=== PATIENT | female | born 1955 | race Caucasian/White ===

== ENCOUNTER 2020-06-24 18:29 | Observation (INO) | payer BC, OTHER ==
[2020-06-24] MEDS ORDERED: Morphine 4 MG/ML VIAL ONE (19:20)
[2020-06-24] MEDS ORDERED: Ondansetron PF 4 MG/2 ML Vial ONE (19:27)
[2020-06-24 20:00] LABS: #Basophils 0.1 thou/uL (0.0-0.2); #Eosinphils 0.1 thou/uL (0.0-0.7); #Lymphocytes 1.7 thou/uL (1.20-3.40); #Monocytes 0.4 thou/uL (0.11-0.59); #Neutrophils 3.6 thou/uL (1.40-6.50); %Basophils 1.2 % (0.0-1.0); %Eosinophils 1.8 % (0.0-10.0); %Lymphocytes 28.3 % (21.0-51.0); %Monocytes 7.1 % (0.0-10.0); %Neutrophils 61.6 % (42.0-75.0); Hemoglobin 11.9 g/dL (12.0-16.0); Mean Corpuscular HGB CONC 34.8 g/dL (32.0-36.0); Mean Corpuscular Hemoglobin 33.2 pg (27.0-31.0); Mean Corpuscular Volume 95.5 fL (78.0-98.0); Platelet Count 192 thou/uL (130-400); RBC Distribution Width 12.2 % (11.5-14.5); Red Blood Cell (RBC) Count 3.58 mill/uL (4.20-5.40); White Blood Cell (WBC) Count 5.9 thou/uL (4.8-10.8)
--- NOTE | 2020-06-24 20:00 | ULT ---
EXAM: Bilateral lower extremity venous ultrasound HISTORY: Bilateral lower extremity swelling COMPARISON: None TECHNIQUE: Multiplanar grayscale and color Doppler images were obtained in a bilateral lower extremit y venous ultrasound. Spectral analysis of the Doppler waveforms were performed. FINDINGS: The bilateral common femoral vein, profunda femoral veins, superficial femoral veins, and p opliteal veins are normal in appearance without visible thrombus. These vessels demonstrate normal compression, flow, and augmentation. The bilateral posterior tibial veins, profunda femoral veins and greater saphenous veins are patent w ithout evidence of DVT. IMPRESSION: No evidence of DVT in the left or right lower extremity.
--- NOTE | 2020-06-24 20:16 | RAD ---
Exam:THREE VIEWS RIGHT FOOT: HISTORY: Wound along the calcaneus. Evaluate for osteomyelitis. COMPARISON: None FINDINGS: There appear to be chronic degenerative changes involving the articulation of the second an d third proximal metatarsals and adjacent cuneiform bones. There is associated soft tissue swelling. Lisfranc alignment is difficult to assess. No acute fractures. No erosive or destructive changes. No bone demineralization. IMPRESSION: 1. Chronic changes involving the midfoot as described above. 2. No radiographic evidence of osteomyelitis. Transcribed Date/Time: 06/24/2020 8:53 PM
[2020-06-24 20:23] LABS: ALT (SGPT) 16 U/L (8-55); AST (SGOT) 20 U/L (5-34); Albumin 4.5 g/dL (3.4-4.8); Alkaline Phosphatase 55 U/L (40-110); Anion Gap 17 mmol/L (10-20); BUN (Urea Nitrogen) 24 mg/dL (9.8-20.1); Bilirubin, Total 0.4 mg/dL (0.2-1.2); Calc. Creatinine Clearance 0 mL/min (70-130); Calcium 9.3 mg/dL (7.8-10.44); Carbon Dioxide 22 mmol/L (23-31); Chloride 97 mmol/L (98-107); Estimated GFR-MDRD 38; Globulin 2.6 g/dL (2.4-3.5); Glucose 105 mg/dL (80-115); Potassium 4.1 mmol/L (3.5-5.1); Protein, Total 7.1 g/dL (6.0-8.3); Sodium 132 mmol/L (136-145)
[2020-06-24] MEDS ORDERED: Clindamycin/D5W 900 mg/50 ml Premix Bag ONE (21:58)
[2020-06-24] MEDS ORDERED: Bacitracin 1 PK ONE (22:18)
--- NOTE | 2020-06-24 23:13 | PDOC.FPRHP ---
- History of Present Illness Chief Complaint: Dog bite History of Present Illness: Patient is a 64 year old female with a history of HTN, PVD, HLD, MDD, anemia and neuropathy presents to the ED with complaints of right lower extremity edema and erythema secondary to dog bite 1 month ago. The patient says she was bitten by a puppy 2 month ago on the right heel and right arreguin. She says the puppy is up to date on vaccines and displays no symptoms concerning for rabies. Initially wounds healed appropriately, but patient developed right lower extremity edema, erythema and tenderness to touch around the bite santiago 2-3 weeks ago. She was seen in [facility] on 06/20 and placed on Keflex and Doxy. The patient says her symptoms have worsened since that time. She has been taking medication as prescribed. She denies fever, chills, lightheadedness, headache, vision changes, chest pain, SOB, palpitations, and abdominal pain. Most recent lab work completed outpatient was in 09/12. ED Course: In the ED, patient was afebrile. Received 900mg IV clindamycin, Morphine 4mg and Zofran 4mg. - Allergies/Adverse Reactions Allergies Allergy/AdvReac Type Severity Reaction Status Date / Time acetaminophen [From Tylenol] Allergy Verified 01/14/20 03:48 Penicillins Allergy Verified 06/25/20 01:10 - Home Medications Medication Instructions Recorded Confirmed Type Amlodipine [Norvasc] 10 mg PO DAILY 06/25/20 06/25/20 History Aspirin Chewable 81 mg PO DAILY 06/25/20 06/25/20 History Candesartan Cilexetil 8 mg PO DAILY 06/25/20 06/25/20 History Cephalexin [Keflex] 500 mg PO Q12H 06/25/20 06/25/20 History Cilostazol [Pletal] 100 mg PO BID-AC 06/25/20 06/25/20 History Cyclobenzaprine [Flexeril] 10 mg PO TID PRN 06/25/20 06/25/20 History Doxycycline Hyclate 100 mg PO BID 06/25/20 06/25/20 History Ezetimibe [Zetia] 10 mg PO DAILY 06/25/20 06/25/20 History FLUoxetine HCl 20 mg PO DAILY 06/25/20 06/25/20 History Gabapentin [Neurontin] 600 mg PO TID 06/25/20 06/25/20 History Hydrochlorothiazide 12.5 mg PO QAM 06/25/20 06/25/20 History buPROPion HCl [buPROPion HCl SR] 150 mg PO BID 06/25/20 06/25/20 History - History PMHx: HTN, HLD, PVD, MDD, neuropathy, anemia, questionable history of DM PSHx: Partial hysterectomy, TMJ surgery, FHx: Noncontributory Social: Quit smoking cigarettes 3 months ago, previously 1ppd for about 45 years. Occasional alcohol use. No drug use. - Review of Systems General: denies: fever/chills, night sweats Eyes: denies: eye pain, vision changes ENT: denies: nasal congestion, rhinorrhea Respiratory: denies: congestion, shortness of breath Cardiovascular: reports: edema. denies: chest pain, palpitation Gastrointestinal: denies: nausea, vomiting, abdominal pain Genitourinary: denies: dysuria, polyuria Skin: denies: rashes, jaundice Musculoskeletal: reports: pain, tenderness, swelling. denies: stiffness Neurological: denies: numbness, weakness Psychological: denies: anxiety, depression - Vital signs BP: [154/74] HR: [98] RR: [20] Tmax: [98.3] Pox: [98]% on [RA] Wt: [92.3kg] - Physical Exam Constitutional: NAD, awake, alert and oriented -Constitutional: Comfortable, talkative. HEENT: normocephalic and atraumatic Neck: supple, trachea midline Chest: no-tender to palpation, no lesions Heart: RRR, normal S1/S2 -Heart: Systolic murmur. 2+ pitting edema bilaterally. Lungs: CTAB, no respiratory distress Abdomen: soft, non-tender, bowel sounds present Musculoskeletal: normal structure, ROM grossly normal Neurological: no focal deficit, normal sensation Skin: capillary refill <2 seconds -Skin: Right heel: erythema and small area of skin sloughing, nontender, no drainage present Right anterior arreguin: mild erythema, minimal area of skin sloughing, nontender, no drainage present Venous stasis dermatitis bilaterally Heme/Lymphatic: no purpura, no petechia Psychiatric: normal mood and affect FMR H&P: Results - Labs Result Diagrams: 06/25/20 03:32 06/25/20 03:32 Lab results: WBC 5.9 thou/uL (4.8-10.8) 06/24/20 19:40 Hgb 11.9 g/dL (12.0-16.0) L 06/24/20 19:40 Hct 34.2 % (36.0-47.0) L 06/24/20 19:40 MCV 95.5 fL (78.0-98.0) 06/24/20 19:40 Plt Count 192 thou/uL (130-400) 06/24/20 19:40 Neutrophils % 61.6 % (42.0-75.0) 06/24/20 19:40 ESR Westergren 17 mm/hr (Less than 30) 06/24/20 21:38 Sodium 132 mmol/L (136-145) L 06/24/20 19:40 Potassium 4.1 mmol/L (3.5-5.1) 06/24/20 19:40 Chloride 97 mmol/L (98-107) L 06/24/20 19:40 Carbon Dioxide 22 mmol/L (23-31) L 06/24/20 19:40 BUN 24 mg/dL (9.8-20.1) H 06/24/20 19:40 Creatinine 1.40 mg/dL (0.6-1.1) H 06/24/20 19:40 Glucose 105 mg/dL (80-115) 06/24/20 19:40 Calcium 9.3 mg/dL (7.8-10.44) 06/24/20 19:40 Total Bilirubin 0.4 mg/dL (0.2-1.2) 06/24/20 19:40 AST 20 U/L (5-34) 06/24/20 19:40 ALT 16 U/L (8-55) 06/24/20 19:40 Alkaline Phosphatase 55 U/L (40-110) 06/24/20 19:40 C-Reactive Protein 0.50 mg/dL (= or < 0.5) 06/24/20 19:40 B-Natriuretic Peptide 17.3 pg/mL (0-100) 06/24/20 19:40 Serum Total Protein 7.1 g/dL (6.0-8.3) 06/24/20 19:40 Albumin 4.5 g/dL (3.4-4.8) 06/24/20 19:40 - Radiology Interpretation US - venous Status: report reviewed by me Additional comment: No DVT present bilaterally Other Status: report reviewed by me Additional comment: XR Right Foot showed no osteomyelitis FMR H&P: A/P - Plan 64 yo F with HTN, anemia, PVD and MDD presents for worsening pain and swelling of LE and admitted for right lower extremity cellulitis that failed outpatient therapy. RLE cellulitis 2/2 dog bite Afebrile. WBC5.9. No systemic symptoms concerning for endocarditis. Erythema surrounding right heel and right anterior arreguin bite sites but no drainage or warmth to touch present. Pain appears to be related to chronic lower extremity edema rather than cellulitis. Received IV clinda in ED. -Continue clinda 600mg Q8H IV, transition to oral with clinical improvement -Start Rocephin 2g Q24H -F/u wound culture -Consult wound care -A1C - questionable history of DM could attribute to poor wound healing Lower extremity edema likely 2/2 to Hx PVD Skin changes consistent with chronic venous stasis. No DVT present. BNP 17, making heart failure less likely. Patient is on amlodipine but is a chronic medication without recent dose changes. -Order UA for possible proteinuria -Compression hose AIDA vs progressing CKD Cr 1.4 in ED with BUN 24. Last BMP completed outpatient was 1.11 on 08/2019. Patient denies dehydration. -Encouraged PO hydration -BMP in am Systolic murmur Patient reports being told recently about murmur in clinic, however no documentation reviewed mentioned this. No echo per chart review. -Workout outpatient -If fever or systemic symptoms develop, consider echo to rule out endocarditis Normocytic anemia Hgb 11.9 in ED. Per chart review, stable over past year. Previous B12 and folate workup negative. -Stable Mild chronic hyponatremia Na 132 in ED. Per chart review, Na 130 in 2016. -Monitor with am BMP Dispo: admit to medical obs for failure of outpatient cellulitis treatment, expected LOS < 48hrs FMR H&P: Upper Level - Plan Date/Time: 06/24/20 [email or web address] Liz Adams, have evaluated this patient and agree with findings/plan as outlined by business analytics intern resident. Pertinent changes/additions are listed here. 64 yo F with PMH anemia, HLD, MDD, HTN presents for worsening swelling and pain of lower extremities. She was bitten by a puppy 2 months ago. She was bit on R anterior calf and heel. She was seen in clinic 06/20, prescribed keflex and doxy and has been taking these. She reports worsening pain, swelling in bilateral lower extremities, and pain around bite sites. VS: 154/74, 98, 20, 98.3, 09% on RA PE: Gen: NAD, standing during majority of encounter HEENT: Moist MM Heart: RRR, 3/6 systolic murmur Lungs: CTAB, no wheezing. No increased work of breathing Abd: soft, nontender, BS+, no masses or hernias Ext: tight 2+ edema of BLE, bite to R heel and R lower leg with sloughing, small amount surrounding erythema. Psych: AOx3 Pertinent Labs/Imaging: LE US negative for DVT R foot XR negative for osteomyelitis 64 yo F with PMH HTN, anemia, MDD presents for worsening pain and swelling of LE and admitted for cellulitis failed outpatient therapy. RLE cellulitis 2/2 dog bite - No systemic symptoms, afebrile, WBC wnl - Admitted for failure of outpatient therapy, was on doxy and keflex. Small amount of surrounding erythema though it seems that patient's increased pain is more likely 2/2 edema rather than progressive cellulitis - Continue clindamycin (06/24) and rocephin (06/25), may switch to oral with clinical improvement - Wound culture taken in ED pending - Consult wound care - A1c pending. Patient has hx PVD causing slow wound healing as well. Lower extremity edema - Negative for DVT - BNP negative, heart failure less likely - Will get UA to evaluate for proteinuria - Pt is on amlodipine, this has been a long time home medication without any recent dose changes - Venous stasis more likely possibility. Patient does have hx PVD. Compression hose may help. AIDA vs progressing CKD - Cr 1.4 on admission, last check in clinic was 1.11 on 08/2019 - repeat in am, PO hydration Systolic murmur - Patient says this has been recently noted at clinic visits. Unable to find any documentation of this however, and no echo in clinic chart. This workup can be completed outpatient - If patient develops fever inpatient, would get echo to rule out endocarditis Normocytic anemia - Hgb 11.9, unchanged compared to one year ago. Outpatient she did have normal B12 and folate workup Mild chronic hyponatremia - Na 132 on admission - Document Na of 130 in 2016 Dispo: admit to medical floor for observation, expected LOS <48hrs Addendum - Attending - Attending Attestation Date/Time: 06/24/20 [id number] I personally evaluated the patient and discussed the management with Dr. Rogers I agree with the History, Examination, Assessment and Plan documented above with any addition or exceptions noted below - 64 yo F with PMH anemia, HLD, MDD , HTN presents for worsening swelling and pain of lower extremities. She was bitten by a puppy 2 months ago. She was bit on R anterior calf and heel. Initially healed well but then 2-3 weeks developed increased pain/redness in area of heel. Denies any drainage. She was seen in clinic 06/20, prescribed keflex and doxy and has been taking these. She reports worsening pain, swelling in bilateral lower extremities, and pain around bite site. PMH/PSH?meds/SH reviewed and agree with resident's documentation. Afebrile VSS. Exam repeated by me and agree with resident's findings- 2+pitting edema; right heel with redness and small area of skin sloughing; no drainage; tender to palpation. Labs : WBC=5.9, H/H=11.9/34.7, MSmm=963, Sq=310, K=4.1, BUN/Cr=24/1.4, ESR=17, CRP= 0.50, Foot x-ray no evidence of osteomyelitis; Venogram- no evidence of DVT A/P : 1) RLE cellulitis - continue rocephin and clindamycin 2) HTN- continue home meds. .
[2020-06-24] MEDS ORDERED: Ondansetron PF 4 MG/2 ML Vial IVP PRN (23:19)
[2020-06-24] MEDS ORDERED: Ondansetron ODT 4 MG TAB PO PRN (23:19)
[2020-06-24] MEDS ORDERED: Ibuprofen 800 MG TAB PO PRN (23:25)
[2020-06-25 01:40] VITALS: BMI 30.9
[2020-06-25] MEDS ORDERED: cefTRIAXone\\ROCEPHIN 2 GM in Sodium Chloride 0.9% 100 ML IVPB SCH (02:00)
[2020-06-25] MEDS: Cyclobenzaprine 10 MG TAB PO PRN ×2 (02:01→11:16)
[2020-06-25] MEDS ORDERED: Gabapentin 300 MG CAP PO SCH (03:15)
[2020-06-25] MEDS ORDERED: Famotidine 20 MG TAB PO SCH (03:15)
[2020-06-25 03:59] LABS: #Eosinphils 0.1 thou/uL (0.0-0.7); #Monocytes 0.4 thou/uL (0.11-0.59); #Neutrophils 3.1 thou/uL (1.40-6.50); %Basophils 0.3 % (0.0-1.0); %Eosinophils 1.7 % (0.0-10.0); %Monocytes 7.4 % (0.0-10.0); %Neutrophils 54.7 % (42.0-75.0); Hemoglobin 11.9 g/dL (12.0-16.0); Mean Corpuscular HGB CONC 34.5 g/dL (32.0-36.0); Mean Corpuscular Hemoglobin 33.2 pg (27.0-31.0); Mean Corpuscular Volume 96.1 fL (78.0-98.0); Mean Platelet Volume 5.9 fL (7.4-10.4); Platelet Count 191 thou/uL (130-400); RBC Distribution Width 12.3 % (11.5-14.5); Red Blood Cell (RBC) Count 3.57 mill/uL (4.20-5.40); White Blood Cell (WBC) Count 5.6 thou/uL (4.8-10.8)
[2020-06-25 04:27] LABS: Anion Gap 14 mmol/L (10-20); BUN (Urea Nitrogen) 20 mg/dL (9.8-20.1); Calc. Creatinine Clearance 65 mL/min (70-130); Carbon Dioxide 23 mmol/L (23-31); Chloride 97 mmol/L (98-107); Estimated GFR-MDRD 41; Glucose 96 mg/dL (80-115); Potassium 3.7 mmol/L (3.5-5.1); Sodium 130 mmol/L (136-145)
[2020-06-25] MEDS: Clindamycin/D5W 600 MG in Premix Bag 1 BAG IVPB SCH ×3 (06:27→14:16)
[2020-06-25] MEDS ORDERED: Cilostazol 100 MG TAB PO SCH (07:30)
--- NOTE | 2020-06-25 07:51 | PDOC.FM ---
- Subjective Subjective: Doing well this morning, slept well overnight, no acute events. States swelling/ erythema/pain is stable. Denies any CP, SOB, n/v. Did have multiple episodes of diarrhea overnight, nonbloody with mild abd cramping, thus stool sent for C diff. - Objective MAR Reviewed: Yes Vital Signs & Weight: Vital Signs (12 hours) Temp Pulse Resp BP Pulse Ox 06/25/20 04:00 98.1 F 81 16 160/82 H 98 06/24/20 23:50 97.4 F L 80 16 177/81 H 98 06/24/20 23:24 98 Weight Weight 92.3 kg I&O: 06/24/20 06/25/20 06/26/20 06:59 06:59 06:59 Intake Total 1060 100 Balance 1060 100 Result Diagrams: 06/25/20 03:32 06/25/20 03:32 Phys Exam - Physical Examination Constitutional: NAD (resting comfortably) HEENT: moist MMs Neck: supple Respiratory: no wheezing, no rales, no rhonchi, clear to auscultation bilateral Cardiovascular: RRR, no rub 2/6 systolic murmur Gastrointestinal: soft, non-tender, no distention, positive bowel sounds R heel cellulitis with 1+ pitting edema to ankle, mild TTP, mild drainage R arreguin wound with minimal TTP/erythema/drainage, no swelling Neurological: moves all 4 limbs Psychiatric: normal affect, A&O x 3 Dx/Plan (1) Dog bite Code(s): W54.0XXA - BITTEN BY DOG, INITIAL ENCOUNTER Status: Acute Qualifiers: Encounter type: subsequent encounter Qualified Code(s): W54.0XXD - Bitten by dog, subsequent encounter (2) Cellulitis Code(s): L03.90 - CELLULITIS, UNSPECIFIED Status: Acute Qualifiers: Site of cellulitis: extremity Site of cellulitis of extremity: lower extremity Laterality: right Qualified Code(s): L03.115 - Cellulitis of right lower limb - Plan Plan: 64 yo F with PMH HTN, anemia, MDD presents for worsening pain and swelling of LE and admitted for cellulitis after dog bite failed outpatient therapy. #RLE cellulitis 2/2 dog bite - No systemic symptoms, afebrile, WBC wnl - Admitted for failure of outpatient therapy, was on doxy and keflex as OP. Small amount of surrounding erythema though it seems that patient's increased pain is more likely 2/2 edema rather than progressive cellulitis - Continue clindamycin (06/24) and rocephin (06/25), may switch to oral with clinical improvement - Wound culture taken in ED - initial Gram stain with yeast and GPC, awaiting culture - Consult wound care - A1c pending. Patient has hx PVD causing slow wound healing as well. - XR negative for kim/joint involvement #Lower extremity edema - Negative for DVT - BNP negative, heart failure less likely - Pt is on amlodipine, this has been a long time home medication without any recent dose changes - Venous stasis more likely possibility. Patient does have hx PVD. Compression hose may help after resolution of cellulitis #AIDA vs likely underlying CKD III - Cr 1.4 -> 1.31, last check in clinic was 1.11 on 08/2019 #Systolic murmur - Patient says this has been recently noted at clinic visits. Unable to find any documentation of this however, and no echo in clinic chart. This workup can be completed outpatient - If patient develops fever inpatient, would get echo to rule out endocarditis #Normocytic anemia - Hgb 11.9, unchanged compared to one year ago. Outpatient she did have normal B12 and folate workup. Suspect secondary to chronic renal disease, will need Op workup and monitoring. #Mild chronic hyponatremia - Na 132 -> 130 - Document Na of 130 in 2016 PCP: KAY Barragan Code: Full IVF: SL Diet: HH VTE: SCDs Dispo: Admitted to medical obs for failed OP abx for cellulitis 2/2 dog bite. Culture pending. Transition to PO abx as appropriate. Addendum - Attending - Attending Attestation Date/Time: 06/25/20 1110 I personally evaluated the patient and discussed the management with Dr. James. I agree with the History, Examination, Assessment and Plan documented above with any addition or exceptions noted below. Patient reports feeling better, having some pain in her foot. Her exam does not show severe infection or cellulitis. XR and lab studies reassuring. Continue IV abx at this time but likely stable for discharge home with PO abx and continued outpatient follow up this afternoon.
[2020-06-25] MEDS ORDERED: Amlodipine 10 MG TAB PO SCH (09:00)
[2020-06-25] MEDS ORDERED: Ezetimibe 10 MG TAB PO SCH (09:00)
[2020-06-25] MEDS ORDERED: Bupropion 150 MG SR TAB PO SCH (09:00)
[2020-06-25] MEDS ORDERED: Losartan 25 MG TAB PO SCH (09:00)
[2020-06-25] MEDS ORDERED: Hydrochlorothiazide 25 MG TAB PO SCH (09:00)
[2020-06-25] MEDS ORDERED: FLUoxetine HCl 20 MG CAP PO SCH (09:00)
[2020-06-25] MEDS ORDERED: Aspirin Chewable 81 MG TAB PO SCH (09:00)
[2020-06-25] MEDS: Gabapentin 300 MG CAP PO SCH ×2 (09:03→15:14)
[2020-06-25 09:05] LABS: Hemoglobin A1c 5.5 % (4.0-6.0)
[2020-06-25] MEDS ORDERED: Mupirocin 2% Ointment 22 GM Tube TOP PRN (09:26)
[2020-06-25] MEDS ORDERED: traMADol HCl 50 MG TAB PO SCH (10:00)
[2020-06-25 12:31] LABS: SARS-CoV-2 MS2 Positive; SARS-CoV-2 N Gene Negative; SARS-CoV-2 S Gene Negative; SARS-CoV-2 by NAA Not Detected (NotDetected); SARS-CoV-2 orf1ab Negative
[2020-06-25 12:41] VITALS: BP 116/55; TEMP 98.4
--- NOTE | 2020-06-26 03:31 | DIS ---
DATE OF ADMISSION: 06/24/2020 DATE OF DISCHARGE: 06/25/2020 RESIDENT: Don James MD ADMITTING ATTENDING: Elena House MD DISCHARGE ATTENDING: Ghanshyam De Guzman MD CONSULTS: None. PROCEDURES: 1. Lower extremity venogram on 06/24/2020, demonstrating no acute DVT. 2. X-ray of right foot performed on 06/24/2020, demonstrating no radiographic evidence of osteomyelitis. PRIMARY DIAGNOSES: Right lower extremity cellulitis secondary to a dog bite. SECONDARY DIAGNOSES: 1. Chronic kidney disease 3. 2. Systolic murmur. 3. Normocytic anemia. 4. Mild chronic hyponatremia. DISCHARGE MEDICATIONS: 1. Clindamycin 300 mg p.o. t.i.d. 2. Doxycycline 100 mg p.o. b.i.d. 3. Ibuprofen 800 mg p.o. q.8 hours p.r.n. 4. Gabapentin 600 mg p.o. t.i.d. 5. Pletal 100 mg p.o. b.i.d. before meals. 6. Candesartan 8 mg p.o. daily. 7. Bupropion sustained release 150 mg tablet p.o. b.i.d. 8. Zetia 10 mg p.o. daily. 9. Flexeril 10 mg p.o. t.i.d. p.r.n. 10. Norvasc 10 mg p.o. daily. 11. Hydrochlorothiazide 12.5 mg p.o. q.a.m. 12. Prozac 20 mg p.o. daily. 13. Aspirin 81 mg p.o. daily. DISCONTINUED MEDICATIONS: Keflex 500 mg p.o. q.12 hours. HISTORY OF PRESENT ILLNESS AND HOSPITAL COURSE: The patient is a 64-year-old female, who was bit by a dog on her right lower extremity approximately one month ago. She presented to her primary care physician earlier in the week and was prescribed Keflex and doxycycline and given return precautions. The patient states she was taking antibiotics as prescribed and presented to the ED on 06/24/2020 for no improvement of symptoms. She says that her right foot was swollen, mildly tender and erythematous. She was thus admitted for right lower extremity cellulitis secondary to dog bite and failure of outpatient therapy, started on Rocephin and clindamycin. Overnight, the patient did very well. Her vital signs were stable. No evidence of sepsis. Laboratory findings were stable and unremarkable for baseline. Continued on IV antibiotics and did well with improvement of pain and erythema and swelling. Venogram was negative. X-ray negative. The patient was very eager to be discharged home. Discharge plan was discussed with the patient to transition to doxycycline and clindamycin as an outpatient. Return precautions were given. The patient was told to schedule appointment with her PCP later in the week for followup. Initial wound culture demonstrated many gram-positive cocci in clusters and white blood cells and culture pending. Discharge plan was discussed with the patient at bedside, who voiced agreement of discharge plan. All questions were answered appropriately. The patient was discharged home. DISPOSITION: Stable. DISCHARGE INSTRUCTIONS: 1. Location: Home. 2. Diet: Heart healthy. 3. Activity: As tolerated. 4. Followup: The patient to followup with primary care physician [facility] in approximately 3 days for monitoring of cellulitis response. Job ID: [id number] MTDD
== END 2020-06-25 16:12 | disposition home or self-care (01) ==
LOC: ERS 18:29 → ONC 22:02
PROVIDERS: ADMIT Family Medicine; ATTEND Family Medicine
DX: L03.115 Cellulitis of right lower limb (principal); S91.3 Open wound of foot; S81.851S Open bite, right lower leg, sequela; I12.9 Hypertensive chronic kidney disease with stage 1 through stage 4 chronic kidney disease, or unspecified chronic kidney disease; N18.3 Chronic kidney disease, stage 3 (moderate); D63.1 Anemia in chronic kidney disease; R01.1 Cardiac murmur, unspecified; E87.1 Hypo-osmolality and hyponatremia; E78.5 Hyperlipidemia, unspecified; F32.9 Major depressive disorder, single episode, unspecified; G62.9 Polyneuropathy, unspecified; I87.2 Venous insufficiency (chronic) (peripheral); Z87.891 Personal history of nicotine dependence; Z79.2 Long term (current) use of antibiotics; Z79.82 Long term (current) use of aspirin; Z79.899 Other long term (current) drug therapy; Z88.0 Allergy status to penicillin; Z88.6 Allergy status to analgesic agent; W54.0XXS Bitten by dog, sequela
CPT/HCPCS: 36415; 80048; 80053; 83036; 83880; 85025; 85652; 86140; 87070; 87205; 87324; 87449; 87635; 93970; 96365; 96366; 96367; 96375; G0378; J0696; J2270; J2405; J3490; U0003

== ENCOUNTER 2020-07-29 12:48 | Inpatient (IN) | payer BC, OTHER ==
[~2020-07-29 12:48] MED LIST: Heparin 1,000 UNITS/ML VIAL ONE
[2020-07-29 13:14] LABS: #Eosinphils 0.1 thou/uL (0.0-0.7); #Lymphocytes 1.1 thou/uL (1.20-3.40); #Monocytes 0.5 thou/uL (0.11-0.59); #Neutrophils 4.7 thou/uL (1.40-6.50); %Basophils 0.3 % (0.0-1.0); %Eosinophils 0.8 % (0.0-10.0); %Lymphocytes 17.5 % (21.0-51.0); %Neutrophils 73.4 % (42.0-75.0); Hemoglobin 10.9 g/dL (12.0-16.0); Mean Corpuscular HGB CONC 34.3 g/dL (32.0-36.0); Mean Corpuscular Volume 96.2 fL (78.0-98.0); Mean Platelet Volume 6.1 fL (7.4-10.4); Platelet Count 169 thou/uL (130-400); RBC Distribution Width 12.5 % (11.5-14.5); White Blood Cell (WBC) Count 6.4 thou/uL (4.8-10.8)
[2020-07-29 13:35] LABS: ALT (SGPT) 18 U/L (8-55); AST (SGOT) 21 U/L (5-34); Albumin 4.1 g/dL (3.4-4.8); Alkaline Phosphatase 54 U/L (40-110); Anion Gap 14 mmol/L (10-20); BUN (Urea Nitrogen) 28 mg/dL (9.8-20.1); Bilirubin, Total 0.3 mg/dL (0.2-1.2); Calc. Creatinine Clearance 0 mL/min (70-130); Calcium 8.9 mg/dL (7.8-10.44); Carbon Dioxide 24 mmol/L (23-31); Chloride 104 mmol/L (98-107); Estimated GFR-MDRD 37; Globulin 2.7 g/dL (2.4-3.5); Glucose 91 mg/dL (80-115); Potassium 3.9 mmol/L (3.5-5.1); Protein, Total 6.8 g/dL (6.0-8.3); Sodium 138 mmol/L (136-145)
[2020-07-29] MEDS ORDERED: Heparin 1,000 UNITS/ML VIAL ONE (14:31)
[2020-07-29] MEDS ORDERED: Clindamycin/D5W 600 mg/50 ml Premix Bag ONE (15:14)
--- NOTE | 2020-07-29 18:06 | RAD ---
Exam: Chest one view HISTORY:Syncope. Comparison: 07/02/2016 FINDINGS: Cardiac silhouette: Normal Aorta: Atherosclerotic Pulmonary vessels: Normal Costophrenic angles: Clear LUNGS: No masses or consolidation. Pneumothorax: None Osseous abnormalities: None IMPRESSION: No acute cardiopulmonary process. Atherosclerosis.
[2020-07-29] MEDS ORDERED: Morphine 4 MG/ML VIAL ONE (18:12)
--- NOTE | 2020-07-29 18:28 | CT ---
Exam: Head CT without contrast HISTORY: Syncope COMPARISON: none FINDINGS: Hemorrhage: No intraparenchymal hemorrhage or extra-axial hematoma. Brain parenchyma: Cortical norris-white matter differentiation is preserved. No mass effect or midline shift. Basilar cisterns are patent.There are chronic small vessel ischemic changes of the white matter. Ventricular system: Ventricles and sulci are patent and symmetric. Calvarium: Intact. Sinuses and mastoid air cells: Adequate aeration. IMPRESSION: No acute intracranial process.
[2020-07-29] MEDS ORDERED: Ondansetron PF 4 MG/2 ML Vial IVP PRN (19:22)
[2020-07-29] MEDS: traMADol HCl 50 MG TAB PO PRN (20:35)
[2020-07-29] MEDS: Calcium Carbonate 500 MG ChewTAB PO PRN (20:36)
--- NOTE | 2020-07-29 21:08 | RAD ---
Exam:2 views right tibia fibula HISTORY: Evaluate for osteomyelitis COMPARISON: None FINDINGS: Nonspecific vascular soft tissue calcifications. Ulceration involving the anterior proximal right lower extremity soft tissues. No fracture, cortical irregularity or periosteal reaction. IMPRESSION: 1. Soft tissue ulceration 2. No radiographic evidence of osteomyelitis.
--- NOTE | 2020-07-29 21:10 | RAD ---
Exam:3 views left foot HISTORY: Evaluate for osteomyelitis COMPARISON: None FINDINGS: Lisfranc alignment is maintained. Preserved joint spaces. There is bony mineralization and erosive changes involving the fifth metatarsal head and proximal phalanx of the fifth digit. Small focus of subcutaneous emphysema is noted. IMPRESSION: Cellulitis and a osteomyelitis involving the fifth digit.
--- NOTE | 2020-07-29 21:11 | RAD ---
Exam:3 views right foot HISTORY: Evaluate for a myelitis. COMPARISON: 06/24/2020 FINDINGS: Stable chronic changes involving the midfoot. Nonspecific mild soft tissue swelling. No ero sive or destructive changes. No evidence of subcutaneous gas. Lisfranc alignment is maintained. IMPRESSION: No radiographic evidence of a myelitis. Chronic changes involving the midfoot.
--- NOTE | 2020-07-29 21:12 | RAD ---
Exam:Left tibia fibula 2 view HISTORY: Evaluate for possible myelitis COMPARISON: None FINDINGS: Nonspecific soft tissue calcifications. There are vascular calcifications. There is no eros elvin or destructive change. IMPRESSION: No evidence of osteomyelitis.
[2020-07-29] MEDS ORDERED: MEROPENEM 1 GM/50 ML 1 GM in Premix Bag 1 BAG IVPB SCH (22:00)
--- NOTE | 2020-07-29 23:11 | PDOC.FPRHP ---
- History of Present Illness Chief Complaint: non healing ulcers and syncope History of Present Illness: Pt is a 64yo F with PMH of DM2, anemia, CKD, depression, HTN, neuropathy who presents with chief complains of increasing b/l LE pain with non healing ulcers and syncope. Patient states in December 2019 she noticed a small "knick" in her right heel and then her dog bit her foot and "it turned into an infection". She states since about that time she has been trying to deal with b/l LE ulcers. She states she has been seen and failed outpatient treatment with antibiotics. She endorses increasing pain b/l and swelling. She was last seen in the hospital for this problem 06/24/20 and sent home on Abx without improvement. Previously on Doxy, Clinda, and Keflex. It was determined outpatient that these ulcers were nonhealing 2/2 arterial insufficiency and was referred to vasular surgery which she has not followed up with. She also was set up with wound care which she has not followed with. Patient denies fever or chills. Patient also endorses a 3 week history of blackouts/falls. She is unable to provide much history but she states she passes out every day or every other day. Previous to 3 weeks ago, she denies problems with this in the past. She does not know when it is coming and does not remember what happens around these events. Denies CP, SOB, DIAZ, abdominal pain, change in stool habits. ED Course: 2L, Cipro, Clinda in ED brain CT neg - Allergies/Adverse Reactions Allergies Allergy/AdvReac Type Severity Reaction Status Date / Time acetaminophen [From Tylenol] AdvReac Stomach Verified 07/29/20 19:50 Ache Penicillins AdvReac Stomach Verified 07/29/20 19:51 Ache - Home Medications Medication Instructions Recorded Confirmed Type Amlodipine [Norvasc] 10 mg PO DAILY 06/25/20 07/29/20 History Aspirin Chewable [Aspirin Chewable 81 mg PO DAILY 06/25/20 07/29/20 History Tablet] Candesartan Cilexetil 8 mg PO DAILY 06/25/20 07/29/20 History Cilostazol [Pletal] 100 mg PO BID-AC 06/25/20 07/29/20 History Cyclobenzaprine [Flexeril] 10 mg PO TID 06/25/20 07/29/20 History Ezetimibe [Zetia] 10 mg PO DAILY 06/25/20 07/29/20 History FLUoxetine HCl 20 mg PO DAILY 06/25/20 07/29/20 History Gabapentin [Neurontin] 600 mg PO TID 06/25/20 07/29/20 History Hydrochlorothiazide 12.5 mg PO QAM 06/25/20 07/29/20 History Ibuprofen [Motrin] 800 mg PO Q8H PRN tab 06/25/20 07/29/20 Rx buPROPion HCl [buPROPion HCl SR] 150 mg PO BID 06/25/20 07/29/20 History - History PMHx: DM2, anemia, CKD, depression, HTN, neuropathy PSHx: c section, ureteral stents due to pyelo FHx: unknown Social: previous tobacco use 1ppd for 50 years, denies alcohol or drug use - Review of Systems General: denies: fever/chills, weight/appetite/sleep changes Eyes: denies: eye pain, vision changes ENT: denies: nasal congestion Respiratory: denies: cough, congestion, shortness of breath Cardiovascular: denies: chest pain, palpitation Gastrointestinal: denies: nausea, abdominal pain Skin: reports: lesions (ulcers). denies: rashes Musculoskeletal: reports: pain, swelling Neurological: reports: syncope - Vital signs BP: 159/83 HR: 90 RR: 18 Tmax: 98 Pox: 98% on RA Wt: 93kg - Physical Exam Constitutional: NAD, awake, alert and oriented HEENT: normocephalic and atraumatic, EOMI, conjunctiva clear Neck: supple, FROM Heart: RRR, normal S1/S2 -Heart: cool b/l LE with weak pulses Lungs: CTAB, no respiratory distress, good air movement Abdomen: soft, non-tender Musculoskeletal: normal tone, ROM grossly normal Neurological: no focal deficit -Skin: 1+ pitting edema b/l LE up to knee. Venous stasis dermatitis noted b/l. Possibly increased redness of left leg. Non healing ulcers on ball of right foot, right heel, right upper arreguin (largest, likely 1.5-2cm), multiple smaller ulcers on left arreguin Heme/Lymphatic: no unusual bruising or bleeding Psychiatric: normal mood and affect, good judgment and insight FMR H&P: Results - Labs Result Diagrams: 07/30/20 04:17 07/30/20 04:17 Lab results: WBC 6.4 thou/uL (4.8-10.8) 07/29/20 13:06 Hgb 10.9 g/dL (12.0-16.0) L 07/29/20 13:06 Hct 31.8 % (36.0-47.0) L 07/29/20 13:06 MCV 96.2 fL (78.0-98.0) 07/29/20 13:06 Plt Count 169 thou/uL (130-400) 07/29/20 13:06 Neutrophils % 73.4 % (42.0-75.0) 07/29/20 13:06 ESR Westergren 22 mm/hr (Less than 30) 07/29/20 20:06 Sodium 138 mmol/L (136-145) 07/29/20 13:06 Potassium 3.9 mmol/L (3.5-5.1) 07/29/20 13:06 Chloride 104 mmol/L (98-107) 07/29/20 13:06 Carbon Dioxide 24 mmol/L (23-31) 07/29/20 13:06 BUN 28 mg/dL (9.8-20.1) H 07/29/20 13:06 Creatinine 1.43 mg/dL (0.6-1.1) H 07/29/20 13:06 Glucose 91 mg/dL (80-115) 07/29/20 13:06 Lactic Acid 1.7 mmol/L (0.5-2.2) 07/29/20 17:55 Calcium 8.9 mg/dL (7.8-10.44) 07/29/20 13:06 Total Bilirubin 0.3 mg/dL (0.2-1.2) 07/29/20 13:06 AST 21 U/L (5-34) 07/29/20 13:06 ALT 18 U/L (8-55) 07/29/20 13:06 Alkaline Phosphatase 54 U/L (40-110) 07/29/20 13:06 Serum Total Protein 6.8 g/dL (6.0-8.3) 07/29/20 13:06 Albumin 4.1 g/dL (3.4-4.8) 07/29/20 13:06 FMR H&P: A/P - Plan 1. Non healing ulcers likely 2/2 arterial insufficiency vs infection less likely -patient has failed outpatient therapy of Keflex, doxy and clinda. most recently diagnosed with arterial insufficiency outpatient and referral to vasular surgery and set up with wound care, but patient has not followed up -WBC, procal, ESR normal, afebile, no evidence of infection -follow up b/l LE and foot XR to rule out osteomyelitis, arterial dopplers -follow up blood culture -wound care consulted -pain control -will need follow up outpatient with CV surgery if not consulted during hospital stay 2. Syncope 2/2 unknown etiology -3 week history of "blacking out" -brain CT neg in ED -follow up carotid dopplers, echo, orthostatics -continuous cardiac monitoring -consider MRI of brain 3. HTN -aware, continue home meds 4. DM 2 -aware, patient not currently taking medication as patient states one time a doctor told her she was diabetic and then one said she was not 5. Depression - aware, continue home meds Dispo: admit to inpatient medical Code: Full DVT ppx: Lovenox Diet: CC Fluids: KVO FMR H&P: Upper Level - Plan Date/Time: 07/29/20 3271 Thom Adams DO, have evaluated this patient and agree with findings/plan as outlined by procurement internship resident. Pertinent changes/additions are listed here. 64 yo F presents for LE wounds present for over a month She has been seen at our clinic for this problem for which she has been unsuccessfully treated with abx. It was determined that these were likely non- healing wounds 2/2 arterial insufficiency and she was set up with wound care and a referral to vascular surgery. She came to the ED today because her wounds were not getting better. she denies fever, draining purulence or erythema, has good ROM in her feet and is able to ambulate. she reports burning pain involving the wounds. In the ED she was given 2L of fluid and started on clinda and cipro. Her VSS, afebrile, on PE she is not in distress, her lower extremities are cool, dry and edematous. She has a quarter sized ulcer with black eschar over her R tibia, maceration with granulation tissue silver dollar sized over R calcaneus, L dime sized wound with eschar on L tibia. no erythema or purulence present. labs wnl, baseline hb and Cr. additionally she reports syncopal episodes every other day. she denies cp, sob, michael, or palpitations. CT in ED wnl. Her LE wounds are most likely related to arterial insufficiency so we will obtain arterial doppler studies and consider CV surg consult pending results, this will likely be an outpt procedure. It is unlikely that these wounds are acutely infected, as such we will dc abx, will obtain esr, procal, and xray: consider alternate abx pending these results. For her syncopal episodes she will be monitored on telemetry, echo and orthostatic VS pending. admit to tele for ELOS>48hrs. Addendum - Attending - Attending Attestation Date/Time: 07/30/20 5305 I personally evaluated the patient and discussed the management with Dr. Carrera last night at time of admission. I agree with the History, Examination, Assessment and Plan documented above with any addition or exceptions noted below. My impression is that there is not infection celluliis present. I think the wounds are non-healing due to vascular disease. Workup in place. Control of pain in both legs (equal) was difficult overnight. it is pain that has been present for well over a month.
[2020-07-29] MEDS ORDERED: Morphine 2 MG/ML VIAL SLOW IVP SCH (23:15)
[2020-07-30] MEDS: traMADol HCl 50 MG TAB PO PRN ×4 (01:01→23:31)
[2020-07-30] MEDS: Ibuprofen 800 MG TAB PO PRN ×2 (02:20→09:42)
[2020-07-30] MEDS: Acetaminophen/Codeine 30-300mg Tablet PO PRN ×2 (02:29→09:41)
[2020-07-30] MEDS: cefTRIAXone\\ROCEPHIN 2 GM in Sodium Chloride 0.9% 100 ML IVPB SCH (02:30)
[2020-07-30] MEDS ORDERED: Vancomycin 1.5 GRAM/300 ML BAG 1.5 GM in Premix Bag 1 BAG IVPB SCH (02:30)
[2020-07-30 04:45] LABS: #Eosinphils 0.1 thou/uL (0.0-0.7); #Lymphocytes 1.1 thou/uL (1.20-3.40); #Monocytes 0.6 thou/uL (0.11-0.59); #Neutrophils 7.3 thou/uL (1.40-6.50); %Basophils 0.2 % (0.0-1.0); %Eosinophils 0.8 % (0.0-10.0); %Monocytes 6.1 % (0.0-10.0); %Neutrophils 80.8 % (42.0-75.0); Mean Corpuscular HGB CONC 34.4 g/dL (32.0-36.0); Mean Corpuscular Hemoglobin 33.3 pg (27.0-31.0); Mean Corpuscular Volume 96.7 fL (78.0-98.0); Mean Platelet Volume 6.3 fL (7.4-10.4); Platelet Count 163 thou/uL (130-400); RBC Distribution Width 12.7 % (11.5-14.5)
[2020-07-30 05:05] LABS: ALT (SGPT) 19 U/L (8-55); AST (SGOT) 24 U/L (5-34); Albumin 3.9 g/dL (3.4-4.8); Alkaline Phosphatase 51 U/L (40-110); Anion Gap 17 mmol/L (10-20); BUN (Urea Nitrogen) 21 mg/dL (9.8-20.1); Bilirubin, Total 0.3 mg/dL (0.2-1.2); Calc. Creatinine Clearance 70 mL/min (70-130); Calcium 9.2 mg/dL (7.8-10.44); Carbon Dioxide 19 mmol/L (23-31); Chloride 104 mmol/L (98-107); Estimated GFR-MDRD 45; Globulin 2.8 g/dL (2.4-3.5); Glucose 83 mg/dL (80-115); Potassium 3.7 mmol/L (3.5-5.1); Protein, Total 6.7 g/dL (6.0-8.3); Sodium 136 mmol/L (136-145)
--- NOTE | 2020-07-30 06:14 | PDOC.FM ---
- Subjective Subjective: Ms. Sandoval is in quite a bit of pain this morning. She says nothing they gave her through the night helped. She is unable to lie in bed because anything touching her legs illicits extreme pain. She reports she has not slept much the past month since the pain started becoming so intense. - Objective Vital Signs & Weight: Vital Signs (12 hours) Temp Pulse Resp BP BP BP BP 07/30/20 04:00 98.3 F 82 15 150/70 H 163/71 H 159/73 H 07/29/20 23:15 98.8 F 86 20 186/81 H 07/29/20 20:00 98.4 F 96 20 145/80 H 07/29/20 19:30 07/29/20 19:25 98.3 F 90 18 159/83 H Pulse Ox 07/30/20 04:00 93 L 07/29/20 23:15 100 07/29/20 20:00 98 07/29/20 19:30 98 07/29/20 19:25 98 Weight Weight 92.986 kg Result Diagrams: 07/30/20 04:17 07/30/20 04:17 Additional Labs: procal 0.02, ESR 22 EKG Reviewed by me: Yes (tele: SR) Radiology Reviewed by me: Yes Phys Exam - Physical Examination rocking on side of bed HEENT: moist MMs Neck: full ROM Respiratory: no wheezing, clear to auscultation bilateral Cardiovascular: RRR systolic flow murmur Gastrointestinal: soft, non-tender, no distention, positive bowel sounds no pulses in LE b/l, large ulcer on R LE, multiple small on L LE Neurological: moves all 4 limbs Psychiatric: normal affect, A&O x 3 Deviation from normal: weeping ulcers on LE bilaterally Dx/Plan - Plan Plan: 1. Cellulitis and osteomyelitis of L foot involving 5th digit -patient has failed outpatient therapy of Keflex, doxy and clinda. Most recently diagnosed with arterial insufficiency outpatient and referral to vasular surgery and set up with wound care, but patient has not followed up -WBC, procal, ESR normal, afebrile -b/l LE foot XR showed cellulitis and osteomyelitis involving 5th digit, MRI pending -Vanc and Rocephin started -Blood culture pending -morphine 4mg q4h prn, consider 2mg for breakthrough -Consider CV surgery consult 2. Non healing ulcers likely 2/2 perfusion deficits Large ulcer on R LE, several small ulcers on L LE -wound care consulted -LE ultrasound revealed prominent atherosclerosis, suggested CTA for further evaluation -venous doppler of R LE revealed no evidence of DVT -Consider CV surgery consult 3. Syncope 2/2 unknown etiology -3 week history of "blacking out" -brain CT neg in ED -orthostatics wnl -carotid dopplers revealed moderate stenosis of L ICA -Echo pending -SR on continuous cardiac monitoring -consider MRI of brain 4. HTN -aware, continue home meds 5. DM 2 -aware, patient not currently taking medication as patient states one time a doctor told her she was diabetic and then one said she was not 6. Depression - aware, continue home meds Dispo: admit to inpatient medical Code: Full DVT ppx: Lovenox Diet: CC Fluids: KVO Addendum - Attending - Attending Attestation Date/Time: 07/30/20 1111 I personally evaluated the patient and discussed the management with Dr. Arriaga. I agree with the History, Examination, Assessment and Plan documented above with any addition or exceptions noted below. Patient here with osteomyelitis of L foot. She will need surgical consult in addition to abx therapy. There is concern for worsening vascular disease, will obtain CTA of the lower extremities.
[2020-07-30] MEDS ORDERED: Morphine 4 MG/ML VIAL SLOW IVP SCH (07:15)
--- NOTE | 2020-07-30 07:57 | ULT ---
EXAM: Right lower extremity venous Doppler US HISTORY: Right lower extremity edema and pain FINDINGS: Grayscale, color-flow, Doppler evaluation, spectral analysis of the right lower extremity venous stru ctures is performed with 2-D imaging. The right common femoral, superficial femoral, popliteal, posterior tibial, proximal greater saphenous and profunda femoral veins are imaged. There is normal luminal compressibility, flow, and augmentation the visualized deep venous structures of the right lower extremity. IMPRESSION: No evidence of a deep vein thrombosis in the right lower extremity.
--- NOTE | 2020-07-30 07:58 | ULT ---
BILATERAL CAROTID DUPLEX ULTRASOUND: HISTORY: Syncope TECHNIQUE: Grayscale, color-flow and spectral Doppler ultrasound imaging of the extracranial carotid artery syst ems was performed bilaterally. FINDINGS: There is plaque formation on both sides. The peak systolic velocity in the right ICA measures 101 cm/s with an end-diastolic velocity of 34 cm /s and a systolic ratio of 1.66. The peak systolic velocity in the left ICA measures 161 cm/s with an end-diastolic velocity of 53 cm/s and a systolic ratio of 2.26. Flow in both vertebral arteries remains antegrade. IMPRESSION: Moderate (50-69%) stenosis of the left ICA
--- NOTE | 2020-07-30 08:18 | ULT ---
Arterial duplex sonogram bilateral lower extremity HISTORY: Vascular disease. Nonhealing leg ulcer. FINDINGS: Good color and spectral Doppler flow within the arterial structures of each lower extremity . Scattered areas of prominent plaque. Right: Common femoral artery biphasic flow Femoral artery, popliteal artery, posterior tibial artery, anterior tibial artery, dorsalis pedis art bre monophasic flow. No abnormally elevated peak systolic velocities Left: Monophasic flow throughout, including the common femoral artery, femoral and popliteal arteries , posterior tibial, anterior tibial, and dorsalis pedis arteries. Elevated velocity within the mid femoral artery of 225 cm/s. IMPRESSION : Prominent atherosclerosis. Dampened pulsatilities within each lower extremity suggesting more proximal arterial stenosis. Elevat ed peak systolic velocity within the left mid femoral artery suggestive of focal stenosis. Please consider conventional or CT arteriography for better characterization.
[2020-07-30] MEDS: Cilostazol 100 MG TAB PO SCH ×2 (08:42→15:27)
[2020-07-30] MEDS: Aspirin Chewable 81 MG TAB PO SCH (08:43)
[2020-07-30] MEDS: Amlodipine 10 MG TAB PO SCH (08:43)
[2020-07-30] MEDS: Bupropion 100 MG SR TAB PO SCH ×2 (08:43→22:32)
[2020-07-30] MEDS: FLUoxetine HCl 20 MG CAP PO SCH (08:44)
[2020-07-30] MEDS: Ezetimibe 10 MG TAB PO SCH (08:44)
[2020-07-30] MEDS: Enoxaparin Sodium 30 MG/0.3 ML SYRINGE SC SCH (08:44)
[2020-07-30] MEDS: Gabapentin 300 MG CAP PO SCH ×3 (08:44→22:31)
[2020-07-30] MEDS: Cyclobenzaprine 10 MG TAB PO SCH ×3 (08:44→22:32)
[2020-07-30] MEDS: Losartan 25 MG TAB PO SCH (08:45)
[2020-07-30] MEDS: Hydrochlorothiazide 25 MG TAB PO SCH (08:45)
[2020-07-30] MEDS ORDERED: CANDESARTAN CILEXETIL 8 MG PO SCH (09:00)
[2020-07-30] MEDS: Morphine 4 MG/ML VIAL SLOW IVP PRN ×3 (11:02→20:18)
[2020-07-30] MEDS: Vancomycin HCl 750 MG in Sodium Chloride 0.9% 250 ML 250 ML IVPB SCH ×2 (11:03→22:31)
--- NOTE | 2020-07-30 11:15 | CT ---
EXAM: CT angiogram abdomen and pelvis with IV contrast and 3-D reconstructions CT angiogram bilateral lower extremities with runoff to the feet with IV contrast and 3-D reconstruct ions PROVIDED CLINICAL HISTORY: Prominent atherosclerosis on arterial Doppler evaluation. Patient complains of bilateral leg pain wit h open sores on legs. COMPARISON: Noncontrast CT abdomen and pelvis on 08/18/2016 as well as a prior contrasted CT abdomen and pelvis o n 07/07/2016. FINDINGS: Approximately 5 mm pulmonary nodule is seen in the right middle lobe as well as a nodular density at the right lateral costophrenic angle. This nodular density could be related to volume loss. There is minimal volume loss in the lingula. Prominent vascular calcifications are seen in the coronary arteries. There is evidence of a hiatal hernia with small portion the fundus of the stomach above the level of the hemidiaphragms. There does appear to be mild wall thickening involving the distal esophagus. Further evaluation with endoscopy is suggested. There are scattered hypodense lesions in the right and left hepatic lobes which are unchanged from pr ior study and most compatible with hepatic cysts. The gallbladder is distended measuring 5.4 cm in diameter and at least 10 cm in length. The gallbladder distention was also seen on the study in 2016. Gallbladder calculi are seen layering dependently within the gallbladder lumen. There is an atrophic appearance of the left kidney with cortical scarring and tiny amount of adjacent fluid. Prior study demonstrated enlargement of the left kidney with hydronephrosis which is not seen on current study. Mild areas of cortical scarring are seen involving the right kidney. There is heterogeneous enhancement of the spleen likely due to phase of contrast enhancement. Pancrea s and bilateral adrenal glands as well as urinary bladder demonstrate a normal CT appearance. Uterus is either small in size or absent. A 3.6 cm low-density structure is seen in the left lower pe lvis. This is not thought to be related to fluid in this region and may represent an adnexal cyst. Dense atherosclerotic vascular calcifications are seen in the abdominal aorta and involving the iliac arteries. There is no aneurysmal dilatation or dissection involving the abdominal aorta. There is moderate to severe narrowing at the origin of the celiac artery with moderate narrowing at the origin of the superior mesenteric artery. Origin of the ROZ is obscured due to dense vascular calcifications. Origins of each single renal artery are also not well evaluated due to dense vascular calcifications. There is suggestion of moderate narrowing at the origin of the left renal artery with mild to moderate narrowing involving the proximal right renal artery. Mild atherosclerotic plaque is seen involving the common iliac arteries without significant focal ric nosis. There is moderate narrowing involving the origin and proximal right internal iliac artery. Bilateral external iliac arteries are patent. Bilateral lower extremity runoff to the feet: Right lower extremity: Vascular calcification are seen in the right common femoral artery resulting in mild luminal narrowin g. There is [id number] narrowing involving the most proximal superficial femoral artery with mild degrees of narrowing involving the proximal right profunda femoral artery. There is a severe foc al narrowing involving the right superficial femoral artery in the proximal thigh. Dense vascular calcifications are seen in this region. Multilevel atherosclerotic vascular disease is seen involving the right superficial femoral artery with scattered [id number] degrees of narrowing with more severe narrowing/critical stenosis at the level of the adductor canal. There are severe focal ar eas of narrowing involving the above the knee right popliteal artery with prominent vascular calcifications and prominent atherosclerotic irregularity seen involving the [id number] popliteal artery. Very dense vascular calcifications are seen involving the tibial peroneal trunk limiting evaluation of this vessel. The right posterior tibial artery occludes proximally. There is faint cont rast opacification of the peroneal artery. Single vessel runoff to the right lower extremity is via the right anterior tibial artery with dorsalis pedis artery seen in the foot. Left lower extremity: Mild narrowing involving the left common femoral artery. Left profunda femoral artery is patent with mild atherosclerotic irregularity. There is moderate narrowing involving the proximal left superficial femoral artery with dense vascular calcification seen throughout the left superficial fem oral artery which limits adequate evaluation. There is probable severe focal narrowing at the level of the adductor canal. Atherosclerotic irregularity and mild/moderate narrowing of the popliteal henry ry is present. Dense vascular calcifications are seen involving most distal popliteal artery limiting evaluation of the lumen. Dense calcifications of the tibial peroneal trunk are also seen. Th ere is two-vessel runoff to left lower extremity via the peroneal and anterior tibial arteries. However, the peroneal artery is very small in size. Posterior tibial artery is occluded. Bilateral lower extremity edema greater below level of the knee and involving the feet. IMPRESSION: 1. Right middle lobe pulmonary nodule measuring 5 mm which is nonspecific. 2. Mild wall thickening involving the distal esophagus with associated hiatal hernia. Endoscopy is eldridge ggested for further evaluation. Gallbladder distention and evidence of cholelithiasis. 4. Atrophic left kidney appear. 5. Prominent atherosclerotic vascular calcifications involving the coronary arteries as well as the a bdominal aorta, iliac arteries, and lower extremity arterial vessels. 6. Focal areas of severe narrowing involving the proximal right superficial femoral artery and superf icial femoral artery at the level of the adductor canal. 7. Severe focal areas of narrowing involving the [id number]-teye right lower extremity popliteal arter y. Right posterior tibial artery is occluded, and there is single vessel runoff to the right lower extremity via the right anterior tibial artery. 8. Moderate to severe narrowing in the left superficial femoral artery at the level of the adductor c anal. There are [id number] degrees of narrowing in the left popliteal artery. Left posterior tibial artery is occluded, and there is two-vessel runoff to the left lower extremity via the peronea l and anterior tibial arteries.
[2020-07-30] MEDS ORDERED: Iopamidol-370 76% 500 ML 1 ML ONE (13:32)
[2020-07-30] MEDS: Ondansetron ODT 4 MG TAB PO PRN (13:41)
--- NOTE | 2020-07-30 20:44 | CON ---
DATE OF CONSULTATION: HISTORY OF PRESENT ILLNESS: Ольга Sandoval is admitted by [facility] yesterday from the emergency room. Apparently, she is complaining of foot pain. She reports that her dog had scratched her or bit her in her right leg junction proximal mid-third anterior and this wound will not heal. She had antibiotic therapy and wound care, and the wound continued to worsen with necrotic base. She had two other wounds on the lower third of her left leg, similar in nature. They were painful. She complains of pain in her feet continuously. She sleeps in bed without her feet dependent. She reports that she has pain in her calf that extends up to her calves sometimes when she ambulates and mows the grass suggestive of claudication calf. She denies any buttock or low back pain. She also has a problem with the right heel. She states she is not sedentary and does not give a history consistent with decubitus, although this wound does look decubitus in nature. The patient is noted on exam to be edematous feet and ankles. It is difficult to examine her due to this edema. It is difficult to examine her due to the pain in her feet and legs. The patient states that she stopped smoking three years ago prior to that she smoked 1 to 1-1/2 packs per day. The patient admitted noted to have changes in her renal function consistent with chronic kidney disease with mild renal insufficiency. GFR 37, improved with hydration to 45. BUN on admission 28 and creatinine 1.43, after hydration 21 and 1.22. The patient since being admitted, has undergone a lower extremity ultrasound revealing absence of DVT. She has had a carotid Doppler studies revealing absence of any critical carotid artery stenosis. She has aortogram with runoff performed revealing gallstones and evidence of PAD, SFA severe stenosis left and severe compromise of runoff to the tibial vessels below the knee, right middle lobe nodule 5 mm nonspecific, mild wall thickening distal esophagus with associated hiatal hernia, atrophic left kidney, severe arteriosclerotic calcifications, aortoiliac, SFA, profunda, tibioperoneal, tibial vessels, right popliteal artery occlusion, and severe PAD distal. X-rays of both legs, tib-fib is unremarkable. X-rays of both feet reveal the right foot is unremarkable. Left small toe reveals changes suggestive of osteomyelitis without clinical evidence of any overlying the foot wound. The patient states that she has had been told she had diabetes in the past, but does not have it now. Glucoses have been 83 to 91. Hemoglobin A1c not measured this hospitalization. Hemoglobin A1c on 06/25/2020 was 5.5. ALLERGIES: ACETAMINOPHEN AND PENICILLIN. SOCIAL HISTORY: Tobacco, cessation 3 years ago, pack and half a day prior to that. Alcohol, none. MEDICATIONS: At home; 1. Ibuprofen. 2. Hydrochlorothiazide. 3. Gabapentin. 4. Fluoxetine. 5. Zetia. 6. Pletal. 7. Aspirin. 8. Norvasc. PAST SURGICAL HISTORY: C-sections and ureteral stents. PAST MEDICAL HISTORY: History of diabetes mellitus type 2, currently not diabetic as outlined above. CKD, depression, hypertension, and history of having had diabetes, denies having it now. History of tobacco abuse. The patient ambulates with a walker due to the pain in her feet. REVIEW OF SYSTEMS: Ten-point noncontributory. Of note, serology on 06/24/2020, COVID negative. PHYSICAL EXAMINATION: VITAL SIGNS: 5 feet 8 inches, 205 pounds, and 31 BMI. 97 degrees, 93, 19, and 169/77. LUNGS: Clear to auscultation. No wheezing. CARDIAC: Regular rate and rhythm without murmur or gallop. Carotids palpable without bruits. NEUROLOGIC: Intact without focal defects. ABDOMEN: Soft, obese, and nontender. EXTREMITIES: I cannot feel femoral pulses, but exam is difficult due to obesity and her discomfort. I cannot feel popliteal pulses, but exam compromise from some edema both her legs and feet. I cannot feel palpable pulses. Posterior tibials are not dopplerable. Dorsalis pedis dopplerable and monophasic. LABORATORY DATA: BUN and creatinine as noted above. Sodium 136. White count 9 and hemoglobin 11. ASSESSMENT AND PLAN: 1. The patient has leg lesions, distal third left leg and proximal third right leg. These are nonhealing, progressive, may be related to PAD, some influence from venous insufficiency could play apart. She does have chronic edema, which could play a role. She has mild chronic kidney disease, but we would recommend checking echocardiogram. 2. PAD. The patient has severe arterial sclerosis aortoiliac, SFA, profunda, and tibioperoneal. She has occluded popliteal artery right and probably very high grade stenosis left SFA. She has tibioperoneal disease without any significant runoff to the legs. This could be contributing to nonhealing wounds. I have talked to Dr. Cancino, he will see regarding her PAD. 3. Radiologically, left small toe osteomyelitis, but no evidence of any infection on the small toe. No indication for surgical intervention from a Surgery standpoint. 4. Asymptomatic gallstones. Would follow these. She denies any abdominal pain or symptoms of gallbladder disease. 5. Dysphagia. For the last six months, she has not lost weight nor she gained weight. We would recommend GI consult. At this point, I will see her as needed. Dr. Cancino will assess her from Vascular standpoint. I do not have anything to offer as far as treatment of the leg wounds. We would recommend consultation with Dr. Andrews. Perhaps consider other etiologies of her leg wounds. Certainly, the nonhealing could be contributed by her PAD small vessel disease. Job ID: [id number]
--- NOTE | 2020-07-30 23:54 | CON ---
DATE OF CONSULTATION: 07/30/2020 HISTORY OF PRESENT ILLNESS: Ms. Sandoval is a 64-year-old woman, who was admitted yesterday with multiple areas on her legs which have been bitten by a puppy and now have failed to heal for a number of months. She has no previous history of peripheral vascular disease. She has no history that I can elucidate of claudication or rest pain. The ulcers are currently painful, but not draining. She as an outpatient had been placed on doxycycline, clindamycin, and Keflex. She apparently had been referred to see us in the office and has never come to the office. She was admitted and has had a CT angiogram performed, which shows multilevel calcification and stenoses involving her superficial femoral, popliteal, and tibial arteries bilaterally. She has palpable femoral pulses bilaterally. I cannot palpate popliteal, dorsalis pedis, or posterior tibial pulses. She does have a Doppler signal in her dorsalis pedis and posterior tibial arteries. She has had no fever. She has some erythema but no streaking up her leg. She has been placed on vancomycin since admission. PAST MEDICAL HISTORY: 1. Diabetes mellitus. 2. Anemia. 3. Chronic renal insufficiency. 4. Depression. 5. Hypertension. 6. Neuropathy. PAST SURGICAL HISTORY: 1. . 2. Ureteral stents secondary to pyelo in the past. SOCIAL HISTORY: She quit smoking a year ago. Does not use any alcohol or drugs. She is and accompanied by her . REVIEW OF SYSTEMS: A 10-point review of systems is performed, is negative, except as above. PHYSICAL EXAMINATION: GENERAL: This is a pleasant woman, resting comfortably, watching television. VITAL SIGNS: Height 5 feet 8 inches and weight is 205 pounds. BSA is 2.11. Her temperature is 97.6, pulse is 86 and regular, and blood pressure is 159/74. HEENT: Sclerae nonicteric. Pupils are equal and round bilaterally. NECK: Supple. She has no carotid bruits. There is no adenopathy. CHEST: Clear bilaterally. HEART: Rhythm is regular without murmur. ABDOMEN: Soft and nontender. EXTREMITIES: No edema. She actually shows signs of being recently diuresed and having wrinkling of the skin over the lower extremity. She has ulcerations involving the right heel and right mid arreguin. She also has two ulcerations on her left mid arreguin area. VASCULAR: She has palpable femoral pulses bilaterally. She has only Doppler signals in her feet. LABORATORY DATA: Of note, hemoglobin A1c is 5.5. Her creatinine is 1.22. Hemoglobin is 11 with a platelet count of 163,000, white blood cell count is 9.0. ASSESSMENT/PLAN: Skin and soft tissue breakdown after dog bite. She is being treated with antibiotics. She has had CT angiogram and physical exam findings consistent with peripheral vascular disease. I have discussed angiograms with her to further define the extent and potentially treat her peripheral vascular disease in the lab courier. She is agreeable for us to proceed tomorrow. Job ID: [id number]
--- NOTE | 2020-07-31 00:04 | CON ---
DATE OF CONSULTATION: 07/30/2020 REQUESTING PHYSICIAN: Jac Irizarry MD REASON FOR CONSULTATION: Dysphagia. HISTORY OF PRESENT ILLNESS: Ольга Sandoval is a 64-year-old woman, who was admitted to the hospital yesterday with complaints of nonhealing bilateral lower extremity ulcers as well as multiple syncopal episodes over the past few weeks. She has a history of diabetes with neuropathy and severe peripheral vascular disease as well as pyelonephritis and chronic kidney disease. She reports that she has been having some dysphagia to both solids and liquids over the past 2 to 3 months. This does bother her some most days. She will feel as if food or liquid will hang up in the lower chest transiently. This can last for up to several minutes. She never has to regurgitate anything. This sensation will always resolve on its own. She will get intermittent occasional mild heartburn, for which she has taken Pepcid on an as-needed basis in the past. There is no weight loss. No nausea, vomiting, or abdominal pain with this. So far, she has been evaluated with CT angiogram, which shows severe multifocal stenosis throughout much of the lower extremity vasculature. It also did demonstrate a small hiatal hernia as well as some distal esophageal thickening. She has been evaluated by Dr. Deleon and I understand the tentative plan is to take her for revascularization procedure tomorrow. REVIEW OF SYSTEMS: Full review of systems including constitutional, head, eyes, ears, nose, throat, GI, , cardiovascular, respiratory, musculoskeletal, neurologic systems is negative except as noted in the HPI. PAST MEDICAL HISTORY: Diabetes type 2 with neuropathy, chronic kidney disease, hypertension, depression, , pyelonephritis with ureteral stent placement. ALLERGIES: ACETAMINOPHEN AND PENICILLIN. HOME MEDICATIONS: 1. Ibuprofen 800 mg p.r.n. 2. Bupropion 150 mg b.i.d. 3. Hydrochlorothiazide 12.5 mg daily. 4. Gabapentin 600 mg t.i.d. 5. Fluoxetine 20 mg daily. 6. Zetia 10 mg daily. 7. Flexeril 10 mg t.i.d. 8. Pletal 100 mg b.i.d. 9. Candesartan 8 mg daily. 10. Aspirin 81 mg daily. 11. Amlodipine 10 mg daily. SOCIAL HISTORY: She is a former smoker. No alcohol or drug use. FAMILY HISTORY: Noncontributory. PHYSICAL EXAMINATION: VITAL SIGNS: Temperature 97.6, pulse 86, blood pressure 159/74, 96% oxygen saturation on room air. GENERAL: A 64-year-old woman, sitting up in bed comfortably, in no distress. SKIN: No jaundice. She has multiple nonhealing wounds to the feet and legs. EYES: No scleral icterus. Extraocular movements intact. ENT: Mucous membranes moist. No oral lesions. LYMPH: No submandibular supraclavicular lymphadenopathy. Thyroid nontender to palpation. HEART: Regular rate and rhythm. LUNGS: Clear to auscultation bilaterally. ABDOMEN: Bowel sounds present. Soft, nontender to palpation throughout. EXTREMITIES: Bilateral 1+ lower extremity edema. There is cellulitis, erythema overlying the tibia and feet bilaterally. NEURO: Cranial nerves 2 through 12 intact bilaterally. LABORATORY STUDIES: WBC 9.0, hemoglobin 11.0, platelets 163. Sodium 136, potassium 3.7, BUN 21, creatinine 1.22. ESR 22. Troponin negative. Lactic acid 1.7. LFTs normal. Echocardiogram is pending. COVID PCR is pending. IMAGING STUDIES: CT angiogram with runoff showed a small hiatal hernia. Distal esophageal thickening, some chronic gallbladder distention with cholelithiasis, multifocal stenoses involving much of the vasculature. Carotid Doppler shows moderate stenosis of the left ICA. CT brain was negative for any acute process. ASSESSMENT/PLAN: Dysphagia, new over the past couple of months, to solids and liquids. She has never undergone upper endoscopy. She does have some chronic heartburn symptoms, does not take daily acid suppression, has been taking ibuprofen, also received multiple oral antibiotics recently including doxycycline. Consider reflux esophagitis with stricture, versus pill esophagitis, versus neoplastic process. EGD is warranted for further investigation. This is really a secondary issue to her presenting problem of severe peripheral vascular disease and nonhealing leg ulcers. Dr. Deleon is planning to take her for revascularization procedure tomorrow. We will tentatively plan for diagnostic EGD the following day. Thank you for the consultation. Please call anytime with questions or concerns. Job ID: [id number]
[2020-07-31] MEDS: Morphine 4 MG/ML VIAL SLOW IVP PRN ×2 (00:33→04:37)
[2020-07-31] MEDS: Sodium Chloride 0.9% 1,000 ML IV SCH ×2 (00:34→11:41)
[2020-07-31] MEDS: Ibuprofen 800 MG TAB PO PRN ×3 (00:51→20:47)
[2020-07-31] MEDS: cefTRIAXone\\ROCEPHIN 2 GM in Sodium Chloride 0.9% 100 ML IVPB SCH (04:02)
[2020-07-31 04:36] LABS: #Eosinphils 0.1 thou/uL (0.0-0.7); #Lymphocytes 1.1 thou/uL (1.20-3.40); #Monocytes 0.4 thou/uL (0.11-0.59); #Neutrophils 5.2 thou/uL (1.40-6.50); %Basophils 0.4 % (0.0-1.0); %Eosinophils 1.1 % (0.0-10.0); %Lymphocytes 16.8 % (21.0-51.0); %Monocytes 5.8 % (0.0-10.0); %Neutrophils 75.8 % (42.0-75.0); Hemoglobin 9.8 g/dL (12.0-16.0); Mean Corpuscular HGB CONC 35.1 g/dL (32.0-36.0); Mean Corpuscular Hemoglobin 33.7 pg (27.0-31.0); Mean Corpuscular Volume 96.1 fL (78.0-98.0); Mean Platelet Volume 6.2 fL (7.4-10.4); Platelet Count 130 thou/uL (130-400); RBC Distribution Width 12.6 % (11.5-14.5); Red Blood Cell (RBC) Count 2.92 mill/uL (4.20-5.40); White Blood Cell (WBC) Count 6.8 thou/uL (4.8-10.8)
[2020-07-31 05:43] LABS: ALT (SGPT) 14 U/L (8-55); AST (SGOT) 17 U/L (5-34); Albumin 3.3 g/dL (3.4-4.8); Alkaline Phosphatase 46 U/L (40-110); Anion Gap 14 mmol/L (10-20); BUN (Urea Nitrogen) 18 mg/dL (9.8-20.1); Bilirubin, Total 0.4 mg/dL (0.2-1.2); Calc. Creatinine Clearance 80 mL/min (70-130); Calcium 8.5 mg/dL (7.8-10.44); Carbon Dioxide 20 mmol/L (23-31); Chloride 107 mmol/L (98-107); Estimated GFR-MDRD 52; Globulin 2.5 g/dL (2.4-3.5); Glucose 87 mg/dL (80-115); Potassium 3.4 mmol/L (3.5-5.1); Protein, Total 5.8 g/dL (6.0-8.3); Sodium 138 mmol/L (136-145)
--- NOTE | 2020-07-31 06:16 | PDOC.FM ---
- Objective Vital Signs & Weight: Vital Signs (12 hours) Temp Pulse Resp BP Pulse Ox 07/31/20 04:57 99.1 F 94 17 113/56 L 93 L 07/31/20 04:30 12 07/31/20 00:35 100.1 F H 109 H 18 128/70 07/30/20 22:35 98.9 F 07/30/20 20:00 97 07/30/20 19:26 98.6 F 94 18 175/74 H 97 Weight Admit Weight 92.986 kg Weight 92.986 kg I&O: 07/29/20 07/30/20 07/31/20 06:59 06:59 06:59 Intake Total 1780 Output Total 750 Balance 1030 Result Diagrams: 07/31/20 04:27 07/31/20 04:27 EKG Reviewed by me: Yes (tele: ) Phys Exam - Physical Examination Constitutional: NAD HEENT: moist MMs, sclera anicteric Neck: full ROM Respiratory: no wheezing, clear to auscultation bilateral Cardiovascular: RRR murmur Gastrointestinal: soft, non-tender, no distention, positive bowel sounds Musculoskeletal: edema present non-healing ulcers on LE b/l, no posterior tibial or dorsalis pedis b/l Neurological: moves all 4 limbs Dx/Plan - Plan Plan: 1. Peripheral Artery Disease -patient has failed outpatient therapy of Keflex, doxy and clinda. Most recently diagnosed with arterial insufficiency outpatient and referral to vasular surgery and set up with wound care, but patient has not followed up -venous: no DVT, arterial dopplers: prominent atherosclerosis, CTA: multilevel calicification and stenoses involving superficial femoral, popliteral, and tibial arteries bilaterally -Consult CV surgery: revascularization 07/31 -morphine 4mg q4h prn, consider 2mg for breakthrough 2. Cellulitis and osteomyelitis of L foot involving 5th digit -WBC, procal, ESR normal, afebrile -b/l LE foot XR showed cellulitis and osteomyelitis involving 5th digit -Vanc and Rocephin started -Blood culture pending -Consult Gen surg: did not recommend surgical intervention at this time due to lack of corresponding physical exam 3. Non healing ulcers likely 2/2 perfusion deficits Large ulcer on R LE, several small ulcers on L LE -wound care consulted -see plan above 4. Syncope 2/2 unknown etiology -3 week history of "blacking out" -brain CT neg in ED -orthostatics wnl -carotid dopplers revealed moderate stenosis of L ICA -Echo pending -SR on continuous cardiac monitoring -consider MRI of brain 5. Dysphagia -History of dysphagia with solids and liquids -reflux esophagitis w/ stricture vs pill esophagitis vs neoplastic process -Consult GI: EGD tomorrow (08/01) 6. Hypokalemia -K 3.4 -replace 7. HTN -aware, continue home meds 8. DM 2 -aware, patient not currently taking medication as patient states one time a doctor told her she was diabetic and then one said she was not 9. Depression - aware, continue home meds Dispo: admit to inpatient medical Code: Full DVT ppx: Lovenox Diet: CC Fluids: KVO Addendum - Attending - Attending Attestation Date/Time: 07/31/20 1110 I personally evaluated the patient and discussed the management with Dr. Arriaga. I agree with the History, Examination, Assessment and Plan documented above with any addition or exceptions noted below. Patient has returned from her re-vascularization procedure. She is having some pain. Awaiting further CV surgery recs. Continue IV abx, awaiting ID consult. She will go for EGD with GI tomorrow.
[2020-07-31] MEDS ORDERED: Lidocaine 1% (PF) 30 ML VIAL ONE (06:34)
[2020-07-31] MEDS ORDERED: Potassium Chloride 20 MEQ TAB PO SCH (06:45)
[2020-07-31] MEDS ORDERED: Midazolam HCl 2 mg/2 ml Vial ONE ×2 (07:03→07:52)
[2020-07-31] MEDS ORDERED: Fentanyl 100 MCG/2 ML VIAL ONE (07:03)
[2020-07-31] MEDS ORDERED: Heparin 10,000 UNITS/ 10 ML VIAL ONE (07:52)
[2020-07-31] MEDS ORDERED: Protamine Sulfate 50 MG/5 ML VIAL ONE (08:06)
--- NOTE | 2020-07-31 09:45 | OP ---
DATE OF PROCEDURE: 07/31/2020 PREOPERATIVE DIAGNOSIS: Peripheral vascular disease with bilateral lower extremity nonhealing wounds. POSTOPERATIVE DIAGNOSIS: Peripheral vascular disease with bilateral lower extremity nonhealing wounds. PROCEDURES PERFORMED: 1. Left groin ultrasound-guided femoral artery access. 2. Abdominal aortogram x2. 3. Right external iliac angiogram. 4. Right common femoral artery angiogram. 5. Right superficial femoral artery angiogram. 6. Right popliteal artery angiogram. 7. Right popliteal and superficial femoral complete length angioplasty with 5 x 150 Lutonix balloon taken to 7 mmHg for 3 minutes, both proximally and distally to cover the full length of the superficial femoral artery. HEPARIN: 5000 units. PROTAMINE: at completion 25 mg. ANESTHESIA: 1% lidocaine for local, 2.5 mg Versed, 75 mcg fentanyl. DESCRIPTION OF PROCEDURE: After consent was obtained, the patient was brought to the laboratory sampler, placed in supine position on laboratory sampler table. Appropriate monitoring was placed. IV sedation was begun. Groins were prepped and draped in usual sterile fashion. Using ultrasound guidance, the left groin was anesthetized with 1% lidocaine. Using ultrasound guidance, percutaneous access was obtained to the left common femoral artery and a micropuncture sheath was placed. This was exchanged for a 6-Eritrean sheath. The Contra catheter was passed in the upper abdominal aorta. Aortogram was performed showing calcified aorta with no luminal encroachment. The catheter was withdrawn to the aortic bifurcation and a second aortogram was performed illuminating the distal aorta and iliac arteries. There was heavy calcification in the iliac arteries. There was no luminal encroachment. Contra catheter and Bentson guidewire were used to cross the aortic bifurcation. The tip of the catheter was positioned in the external iliac artery. Digital angiography was used to gustabo contrast from groin down toward the foot. The external iliac artery, common femoral and profunda femoris arteries were all widely patent. Beginning in the superficial femoral artery distal to its origin by about 5 cm, there was severe calcification and critical stenosis in multiple levels all the way down to the distal patella. The patient was given 5000 units of heparin. Magic Torque guidewire was passed into the superficial femoral artery. A 6-Eritrean sheath was removed and a 6-Eritrean destination sheath was passed down into the common femoral artery. Using an angled [place] catheter and a Magic Torque guidewire, the superficial femoral artery was traversed. Tip of the [place] catheter was positioned in the distal superficial femoral artery. Hand-injected arteriogram was performed to illuminate the below-knee circulation. There was stenosis at the origin of the anterior tibial artery. Posterior tibial and peroneal arteries were patent all the way to the ankle where collaterals supplied the foot. Magic Torque guidewire was positioned in the distal peroneal artery. Woodstock catheter was removed. A 5 x 200 [place]agram balloon was then placed with its tip at the level of the patella and inflated in 2 locations to cover the full length of the superficial femoral artery. Followup angiogram showed good result. We selected a 5 x 150 Lutonix balloon. This was inflated to cover the full length of the superficial femoral artery. It was then used for 3 minutes exchanged for second Lutonix 5 x 150 and inflated for 3 minutes to finish covering the SFA. Followup angiogram showed an excellent result. The Magic Torque guidewire was removed. A Bentson guidewire was placed and the 6-Eritrean sheath was removed. ProGlide was placed and fired with fair hemostasis. Manual pressure was held for completion hemostasis. 25 mg protamine was given. The patient was transferred back to her room in stable condition. Job ID: [id number] [facility]
[2020-07-31] MEDS: HYDROcodone/Acetaminophen 5/325 mg Tablet PO PRN ×4 (10:11→22:00)
[2020-07-31] MEDS: Ezetimibe 10 MG TAB PO SCH (10:18)
[2020-07-31] MEDS: Hydrochlorothiazide 25 MG TAB PO SCH (10:18)
[2020-07-31] MEDS: Cilostazol 100 MG TAB PO SCH ×2 (10:19→17:32)
[2020-07-31] MEDS: FLUoxetine HCl 20 MG CAP PO SCH (10:19)
[2020-07-31] MEDS: Gabapentin 300 MG CAP PO SCH ×3 (10:19→20:46)
[2020-07-31] MEDS: Cyclobenzaprine 10 MG TAB PO SCH ×3 (10:19→20:46)
[2020-07-31] MEDS: Amlodipine 10 MG TAB PO SCH (10:20)
[2020-07-31] MEDS: Losartan 25 MG TAB PO SCH (10:20)
[2020-07-31] MEDS: Bupropion 150 MG SR TAB PO SCH ×2 (10:21→20:47)
[2020-07-31] MEDS: Aspirin Chewable 81 MG TAB PO SCH (10:21)
[2020-07-31 10:34] LABS: Vancomycin, Trough 11.8 ug/mL
[2020-07-31] MEDS ORDERED: Vancomycin 1 GM in Premix Bag 1 BAG IVPB SCH (11:00)
[2020-07-31 11:50] LABS: SARS-CoV-2 MS2 Positive; SARS-CoV-2 N Gene Negative; SARS-CoV-2 S Gene Negative; SARS-CoV-2 by NAA Not Detected (NotDetected); SARS-CoV-2 orf1ab Negative
[2020-07-31] MEDS: Enoxaparin Sodium 30 MG/0.3 ML SYRINGE SC SCH (12:51)
[2020-07-31] MEDS: Vancomycin HCl 750 MG in Sodium Chloride 0.9% 250 ML 250 ML IVPB SCH (12:53)
[2020-07-31] MEDS ORDERED: Iopamidol 370 76% 50 ML VIAL FS ONE (13:21)
--- NOTE | 2020-07-31 17:42 | PRG ---
DATE OF SERVICE: 07/31/2020 SUBJECTIVE: Ms. Sandoval had her vascular procedure today and is up ambulating in the halls now. OBJECTIVE: VITAL SIGNS: Temperature 97.7, pulse 95, blood pressure 111/54. GENERAL: She is in no acute distress. Alert and oriented x3. LUNGS: Clear to auscultation bilaterally. HEART: Regular rate and rhythm without murmur. ABDOMEN: Soft, nontender, and nondistended. Bowel sounds are present. EXTREMITIES: 1+ lower extremity edema and chronic nonhealing ulcers. LABORATORY DATA: Creatinine 1.07 today. IMPRESSION: 1. Esophageal dysphagia. 2. Peripheral vascular disease. RECOMMENDATIONS: We will follow through with upper endoscopy tomorrow. Job ID: [id number]
--- NOTE | 2020-07-31 20:23 | CON ---
DATE OF CONSULTATION: 07/31/2020 REASON: Leg ulcers. HISTORY OF PRESENT ILLNESS: A 64-year-old, who has had two prior admissions to this hospital, one in 2015 when she came in with newly diagnosed type 2 diabetes, some demand ischemia, and some cholelithiasis also was detected. Then 2019 in June, she came in with an ulcer after a dog bite about a month before. She had been given Keflex and doxycycline with persistence of the ulceration as well as mild inflammatory changes with swelling. She was given intravenous antimicrobial therapy. Venogram was normal. She was discharged on doxycycline and clindamycin. At this time, she is brought in with persistence of the wounds in the right and also a left lower extremity with lleokpby-aw-thssks pain, some inflammatory changes had worsened with some evidence of lymphangitis. She may have had a syncopal event, which was not witnessed. Did not have any headaches. No visual symptoms, sore throat, odynophagia, or dysphagia. No dyspnea, cough, or chest pain. No abdominal pain. Voiding without difficulty. No diarrhea, constipation, or bleeding. No neurological symptoms. PAST MEDICAL HISTORY: Type 2 diabetes, chronic smoking, cholelithiasis, and hypertension. SOCIAL HISTORY: As above. ALLERGIES: PENICILLIN AND TYLENOL. MEDICATION LIST: 1. Aspirin. 2. Lipitor. 3. Wellbutrin. 4. Tums. 5. Ceftriaxone. 6. Plavix. 7. Flexeril. 8. Lovenox. 9. Neurontin. 10. Zofran. 11. Cozaar. PHYSICAL EXAMINATION: VITAL SIGNS: T-max 100.1, BP 111/54, heart rate 95, respiratory rate 16, and O2 saturation 99 at 3 L nasal cannula. SKIN: Shows the right mid anterior leg with an ulcerated area measuring about 1.5 to 2 cm with a necrotic base, about 1 cm rim of erythema surrounding it. In the left leg, she has at the anterior aspect of the ankle a round-shaped 1 cm ulcer with again yellow necrotic base and area of blistering localized laterally to this one area. She has two ulcerated areas, very small with less than 1 cm in the fourth toe of the left foot dorsal aspect and she has a small ulcers in the elbow, left side and right side and she has a larger area of ulceration in the right heel region. No lymphadenopathy. HEENT: Noncontributory. NECK: Supple. LUNGS: Symmetric. Clear breath sounds. HEART: S1 and S2 with a soft aortic murmur 2/6. No S3 or S4. ABDOMEN: Soft. Not distended or tender. No ascites. No bladder distention. EXTREMITIES: No joint inflammatory process noted. Pulses are not palpable in dorsalis pedis or popliteals. She is able to move extremities with some limitations due to pain. NEUROLOGIC: Her cognitive function appears to be intact. LABORATORY DATA: Chemistry, with a creatinine 1.43 and now 1.07. Liver profile normal. Albumin 4.1. The white cell count 6.4 and 6.8, hemoglobin is down from 10.9 to 9.8, MCV is 96, platelet count 130, with 75% neutrophils. Vancomycin trough 11.8. SARS-CoV was not detected. Two sets of blood cultures thus far no growth. She has Clostridium difficile from June, which was negative. The patient had an aorta with runoff CTA which showed bilateral oatrbenr-tu-biexli disease, most of it is localized in the more proximal vascular structures, particularly SFA bilaterally, but she also has occlusion of the left tibial artery. The patient had arterial duplex ultrasound of lower extremity, which showed dampened pulsatile flow in the extremities suggesting more proximal arterial stenosis as confirmed by the CT angiogram. Dr. Deleon was consulted and he carried out angiogram and angioplasty of the right superficial femoral artery and popliteal, and the left side was not treated. ASSESSMENT: Type 2 diabetes, chronic smoking, peripheral vascular disease with the chronic ulcers in the extremities resulting from lack of sufficient blood flow. Patient has had the largest ulcer in the right lower extremity and most of the stenoses identified localized there, so patient had treatment of the R SFA and popliteal by Dr. Deleon and now should continue with antimicrobial therapy, we will go ahead and transition her to just Rocephin. Hopefully, transition to oral Keflex for discharge planning. At risk for BKA/AKA depending on the outcome of the revascularization. Job ID: [id number] [facility]
[2020-07-31] MEDS: Atorvastatin Calcium 20 MG TAB PO SCH (20:47)
--- NOTE | 2020-07-31 23:54 | PRG ---
DATE OF SERVICE: 07/31/2020 I have talked to Ms. Sandoval after her angiograms today. Her foot is feeling better at this point. She is warm to the ankle. She has a Doppler signal in her dorsalis and posterior tibial arteries. I have discussed with her the need to perform a similar procedure with her left leg. Allow her kidneys to recover and then plan for angiograms on Wednesday with potential left leg intervention at that point. Job ID: [id number]
--- NOTE | 2020-08-01 06:13 | PDOC.FM ---
- Subjective Subjective: Ms. Sandoval is doing well this morning. She says her right leg feels really good and her pain is well controlled. - Objective Vital Signs & Weight: Vital Signs (12 hours) Temp Pulse Resp BP BP Pulse Ox 08/01/20 00:00 107 H 120/57 L 07/31/20 19:55 98.5 F 106 H 18 130/65 98 Weight Admit Weight 92.986 kg Weight 94.2 kg I&O: 07/30/20 07/31/20 08/01/20 06:59 06:59 06:59 Intake Total 2530 240 Output Total 750 300 Balance 1780 -60 Result Diagrams: 08/01/20 07:01 08/01/20 07:01 EKG Reviewed by me: Yes (tele: SR) Phys Exam - Physical Examination Constitutional: NAD HEENT: moist MMs, sclera anicteric Neck: full ROM Respiratory: no wheezing, clear to auscultation bilateral Cardiovascular: RRR murmur Gastrointestinal: soft, non-tender, no distention, positive bowel sounds Musculoskeletal: no edema, pulses present Neurological: moves all 4 limbs Psychiatric: normal affect, A&O x 3 Dx/Plan - Plan Plan: 1. Peripheral Artery Disease -patient has failed outpatient therapy of Keflex, doxy and clinda. Most recently diagnosed with arterial insufficiency outpatient and referral to vasular surgery and set up with wound care, but patient has not followed up -venous: no DVT, arterial dopplers: prominent atherosclerosis, CTA: multilevel calicification and stenoses involving superficial femoral, popliteral, and tibial arteries bilaterally -Consult CV surgery: Right LE revascularization 07/31, Plan for left on 08/05 -[place] for pain control 2. Cellulitis and osteomyelitis of L foot involving 5th digit -WBC, procal, ESR normal, afebrile -b/l LE foot XR showed cellulitis and osteomyelitis involving 5th digit -Vanc discontinued, continue Rocephin -Blood culture pending -Consult Gen surg: did not recommend surgical intervention at this time due to lack of corresponding physical exam -Consult Darryl: discontinue vanc, continue rocephin, consider Keflex outpatient 3. Non healing ulcers likely 2/2 perfusion deficits Large ulcer on R LE, several small ulcers on L LE -wound care consulted -see plan above 4. Syncope 2/2 unknown etiology -3 week history of "blacking out" -brain CT neg in ED -orthostatics wnl -carotid dopplers revealed moderate stenosis of L ICA -Echo pending -SR on continuous cardiac monitoring -consider MRI of brain 5. Dysphagia -History of dysphagia with solids and liquids -reflux esophagitis w/ stricture vs pill esophagitis vs neoplastic process -Consult GI: EGD tomorrow (08/01) 6. Hypokalemia, resolved -K 3.4>3.9 7. HTN -aware, continue home meds 8. DM 2 -aware, patient not currently taking medication as patient states one time a doctor told her she was diabetic and then one said she was not 9. Depression - aware, continue home meds Dispo: admit to inpatient medical Code: Full DVT ppx: Lovenox Diet: CC Fluids: KVO Addendum - Attending - Attending Attestation Date/Time: 08/01/20 6156 I personally evaluated the patient and discussed the management with Dr. Arriaga. I agree with the History, Examination, Assessment and Plan documented above with any addition or exceptions noted below.
[2020-08-01] MEDS: cefTRIAXone\\ROCEPHIN 2 GM in Sodium Chloride 0.9% 100 ML IVPB SCH (06:17)
[2020-08-01 07:26] LABS: #Eosinphils 0.1 thou/uL (0.0-0.7); #Lymphocytes 1.1 thou/uL (1.20-3.40); #Monocytes 0.4 thou/uL (0.11-0.59); #Neutrophils 6.5 thou/uL (1.40-6.50); %Basophils 0.5 % (0.0-1.0); %Eosinophils 1.4 % (0.0-10.0); %Lymphocytes 13.8 % (21.0-51.0); %Monocytes 5.2 % (0.0-10.0); %Neutrophils 79.1 % (42.0-75.0); Hemoglobin 10.4 g/dL (12.0-16.0); Mean Corpuscular HGB CONC 33.6 g/dL (32.0-36.0); Mean Corpuscular Hemoglobin 32.7 pg (27.0-31.0); Mean Corpuscular Volume 97.3 fL (78.0-98.0); Mean Platelet Volume 6.2 fL (7.4-10.4); Platelet Count 156 thou/uL (130-400); RBC Distribution Width 12.5 % (11.5-14.5); White Blood Cell (WBC) Count 8.3 thou/uL (4.8-10.8)
[2020-08-01 07:46] LABS: ALT (SGPT) 23 U/L (8-55); AST (SGOT) 67 U/L (5-34); Albumin 3.7 g/dL (3.4-4.8); Alkaline Phosphatase 62 U/L (40-110); Anion Gap 14 mmol/L (10-20); BUN (Urea Nitrogen) 19 mg/dL (9.8-20.1); Bilirubin, Total 0.3 mg/dL (0.2-1.2); Calc. Creatinine Clearance 75 mL/min (70-130); Calcium 8.9 mg/dL (7.8-10.44); Carbon Dioxide 25 mmol/L (23-31); Chloride 103 mmol/L (98-107); Estimated GFR-MDRD 44; Globulin 2.9 g/dL (2.4-3.5); Glucose 133 mg/dL (80-115); Potassium 3.9 mmol/L (3.5-5.1); Protein, Total 6.6 g/dL (6.0-8.3); Sodium 138 mmol/L (136-145)
[2020-08-01] MEDS ORDERED: Morphine 2 MG/ML VIAL ONE ×2 (09:10→10:51)
[2020-08-01] MEDS ORDERED: PROPOFOL 200 MG/20 ML VIAL ONE (09:57)
[2020-08-01] MEDS ORDERED: Promethazine HCl 25 MG/ML VIAL SLOW IVP PRN (10:39)
[2020-08-01] MEDS ORDERED: Morphine Sulfate 2 MG/ML SYRINGE SLOW IVP PRN (10:39)
[2020-08-01] MEDS ORDERED: Promethazine HCl 25 MG/ML VIAL IM PRN (10:39)
[2020-08-01] MEDS ORDERED: Ondansetron HCl/PF 4 MG/2 ML Vial IVP PRN (10:39)
--- NOTE | 2020-08-01 11:47 | OP ---
DATE OF PROCEDURE: 08/01/2020 PROCEDURE PERFORMED: Esophagogastroduodenoscopy with biopsy. INDICATION FOR PROCEDURE: Progressively worsening dysphagia. DESCRIPTION OF PROCEDURE: After the risks and benefits of the procedure were explained to the patient and the patient's including risks of bleeding, infection, perforation, reactions to anesthesia, aspiration, and/or pain, informed consent was obtained. The patient was then taken to the endoscopy suite, where she was maneuvered into the left lateral decubitus position, followed by introduction of deep sedation via propofol and anesthesia support. Once adequate sedation was achieved, the standard gastroscope was introduced into the mouth with intubation of the esophagus, stomach, and the proximal small intestines with the findings listed below. The patient tolerated the procedure well with no immediate perioperative complications. Upon conclusion of the procedure, all equipment was removed from the patient and she was transferred to PACU in satisfactory condition. FINDINGS: Esophagus: Normal-appearing mucosa was seen in the proximal and mid esophagus; however, in the distal esophagus, three large ulcerations were seen extending proximally from the gastroesophageal junction with each ulcer measuring approximately 8 to 10 cm in length and 1 cm in width. There was no high-risk stigmata associated with any of these ulcerations, with no evidence of active or recent bleeding. There was some mild luminal narrowing in the distal esophagus, likely due to edema from the esophagitis, but no observed esophageal stricture or stenosis. The diaphragmatic pinch was seen at approximately 37 cm, while the gastroesophageal junction was seen at 33 cm, denoting a 4 cm hiatal hernia. Stomach: Normal-appearing mucosa was seen in the gastric cardia, fundus, and proximal body; however, multiple petechiae like small clots were seen in the distal gastric body and involving the antrum and incisura. With the use of irrigation, washing away these clots did not yield any underlying abnormalities. However, three ulcerations measuring 2 to 3 mm in size were seen in the gastric antrum that did not exhibit any high-risk stigmata of active or recent bleeding. Multiple biopsies were then taken from these ulcerations and placed in a specimen jar for further evaluation and H pylori status. Otherwise, there was no evidence of erosions, mass lesions, or active/recent bleeding. Mild increased erythema was noted around these ulcerations and in the gastric antrum as well. Duodenum: Normal-appearing mucosa was seen in both the duodenal bulb and second portion of the duodenum. There was no evidence of erosions, ulcerations, mass lesions, or active/recent bleeding. IMPRESSION: 1. LA grade D reflux mediated erosive esophagitis (severe). 2. 4 cm hiatal hernia, likely contributing to #1. 3. Three small 2 to 3 mm ulcerations seen in the gastric antrum, status post biopsies, but consistent with NSAID gastritis or possible Helicobacter pylori infection. 4. No overt stricture or stenosis was seen in the distal esophagus to explain her dysphagia, but rather likely the severe reflux esophagitis is contributing to her current symptoms. RECOMMENDATIONS: 1. We would follow up on the biopsy results and place the patient on triple therapy for treatment of H pylori if positive. 2. We would place the patient on pantoprazole 40 mg b.i.d. in light of severe acid reflux and gastric ulcers. 3. We would maintain strict anti-reflux precautions while the patient is inpatient (maintaining an upright posture for 2 to 3 hours after she eats, avoiding eating or drinking within 2 to 3 hours of bedtime, maintaining an upright posture throughout the course of the day to prevent acid from refluxing into the distal esophagus). 4. Given the severe reflux esophagitis and the size of her hiatal hernia, Surgical consultation could be considered as an outpatient for Hermann fundoplication. 5. Advance diet as tolerated. 6. We would restart the patient's anticoagulation later today, especially in light of recent endovascular procedure. 7. We would have the patient follow up in the GI Clinic within 2 to 3 weeks on discharge for further evaluation of her dysphagia and acid reflux. Given the severe acid reflux seen today and no evidence of active or recent bleeding, we will sign off at this time. Please call with any additional questions. Job ID: [id number]
[2020-08-01] MEDS: Calcium Carbonate 500 MG ChewTAB PO PRN (12:20)
[2020-08-01] MEDS: Cilostazol 100 MG TAB PO SCH ×2 (13:11→14:47)
[2020-08-01] MEDS: HYDROcodone/Acetaminophen 5/325 mg Tablet PO PRN ×2 (13:12→20:00)
[2020-08-01] MEDS: Gabapentin 300 MG CAP PO SCH ×3 (13:12→19:59)
[2020-08-01] MEDS: Enoxaparin Sodium 30 MG/0.3 ML SYRINGE SC SCH (14:40)
[2020-08-01] MEDS: Amlodipine 10 MG TAB PO SCH (14:42)
[2020-08-01] MEDS: Aspirin Chewable 81 MG TAB PO SCH (14:42)
[2020-08-01] MEDS: FLUoxetine HCl 20 MG CAP PO SCH (14:42)
[2020-08-01] MEDS: Ezetimibe 10 MG TAB PO SCH (14:42)
[2020-08-01] MEDS: Bupropion 150 MG SR TAB PO SCH ×2 (14:43→20:00)
[2020-08-01] MEDS: Clopidogrel Bisulfate 75 MG TAB PO SCH (14:44)
[2020-08-01] MEDS: Hydrochlorothiazide 25 MG TAB PO SCH (14:44)
[2020-08-01] MEDS: Losartan 25 MG TAB PO SCH (14:44)
[2020-08-01] MEDS: Cyclobenzaprine 10 MG TAB PO SCH ×3 (14:45→19:59)
[2020-08-01] MEDS: Pantoprazole 40 MG VIAL IVP SCH (19:59)
[2020-08-01] MEDS: Atorvastatin Calcium 20 MG TAB PO SCH (20:01)
[2020-08-02] MEDS: HYDROcodone/Acetaminophen 5/325 mg Tablet PO PRN ×5 (01:38→22:23)
[2020-08-02] MEDS: cefTRIAXone\\ROCEPHIN 2 GM in Sodium Chloride 0.9% 100 ML IVPB SCH (01:39)
[2020-08-02 04:25] LABS: #Eosinphils 0.1 thou/uL (0.0-0.7); #Lymphocytes 1.2 thou/uL (1.20-3.40); #Monocytes 0.4 thou/uL (0.11-0.59); #Neutrophils 4.5 thou/uL (1.40-6.50); %Basophils 0.2 % (0.0-1.0); %Eosinophils 1.5 % (0.0-10.0); %Lymphocytes 19.5 % (21.0-51.0); %Monocytes 6.9 % (0.0-10.0); %Neutrophils 71.9 % (42.0-75.0); Hemoglobin 10.6 g/dL (12.0-16.0); Mean Corpuscular HGB CONC 34.5 g/dL (32.0-36.0); Mean Corpuscular Hemoglobin 33.2 pg (27.0-31.0); Mean Platelet Volume 6.4 fL (7.4-10.4); Platelet Count 157 thou/uL (130-400); RBC Distribution Width 12.4 % (11.5-14.5); Red Blood Cell (RBC) Count 3.19 mill/uL (4.20-5.40); White Blood Cell (WBC) Count 6.2 thou/uL (4.8-10.8)
[2020-08-02 04:46] LABS: ALT (SGPT) 38 U/L (8-55); AST (SGOT) 63 U/L (5-34); Albumin 3.7 g/dL (3.4-4.8); Alkaline Phosphatase 58 U/L (40-110); Anion Gap 12 mmol/L (10-20); BUN (Urea Nitrogen) 17 mg/dL (9.8-20.1); Bilirubin, Total 0.3 mg/dL (0.2-1.2); Calc. Creatinine Clearance 73 mL/min (70-130); Calcium 9.1 mg/dL (7.8-10.44); Carbon Dioxide 25 mmol/L (23-31); Chloride 101 mmol/L (98-107); Estimated GFR-MDRD 43; Globulin 2.9 g/dL (2.4-3.5); Glucose 158 mg/dL (80-115); Potassium 3.4 mmol/L (3.5-5.1); Protein, Total 6.6 g/dL (6.0-8.3); Sodium 135 mmol/L (136-145)
--- NOTE | 2020-08-02 06:21 | PDOC.FM ---
- Subjective Subjective: Ms. Sandoval reports her legs are feeling better and she is experiencing less pain. - Objective Vital Signs & Weight: Vital Signs (12 hours) Temp Pulse Resp BP Pulse Ox 08/02/20 04:00 99.1 F 91 15 145/68 H 96 08/02/20 01:22 96 08/01/20 19:30 98.5 F 103 H 16 131/62 96 Weight Admit Weight 92.986 kg Weight 100.4 kg I&O: 07/31/20 08/01/20 08/02/20 06:59 06:59 06:59 Intake Total 2530 360 450 Output Total 750 300 Balance 1780 60 450 Result Diagrams: 08/02/20 04:04 08/02/20 04:04 Phys Exam - Physical Examination Constitutional: NAD HEENT: moist MMs, sclera anicteric Neck: full ROM Respiratory: no wheezing, clear to auscultation bilateral Cardiovascular: RRR 3/6 murmur Gastrointestinal: soft, non-tender, no distention, positive bowel sounds Musculoskeletal: edema present R LE ulcer, multiple on L Neurological: moves all 4 limbs Psychiatric: normal affect, A&O x 3 Dx/Plan - Plan Plan: 1. Peripheral Artery Disease -patient has failed outpatient therapy of Keflex, doxy and clinda. Most recently diagnosed with arterial insufficiency outpatient and referral to vasular surgery and set up with wound care, but patient has not followed up -venous: no DVT, arterial dopplers: prominent atherosclerosis, CTA: multilevel calicification and stenoses involving superficial femoral, popliteral, and tibial arteries bilaterally -Consult CV surgery: Right LE revascularization 07/31, Plan for left on 08/05 -[place] for pain control 2. Cellulitis and osteomyelitis of L foot involving 5th digit -WBC, procal, ESR normal, afebrile -b/l LE foot XR showed cellulitis and osteomyelitis involving 5th digit -Vanc discontinued, continue Rocephin -Blood culture pending -Consult Gen surg: did not recommend surgical intervention at this time due to lack of corresponding physical exam -Consult Darryl: discontinue vanc, continue rocephin, consider Keflex outpatient. Will follow-up with Darryl to ask about osteomyelitis. 3. Non healing ulcers likely 2/2 perfusion deficits Large ulcer on R LE, several small ulcers on L LE -wound care consulted -see plan above 4. Syncope 2/2 unknown etiology -3 week history of "blacking out" -brain CT neg in ED -orthostatics wnl -carotid dopplers revealed moderate stenosis of L ICA -ECHO: mitral annular calicification, mild mitral regurgitation, mild aortic stenosis, mild tricuspid regurgitation -was SR on cardiac monitoring for 4 days 5. Dysphagia 2/2 severe erosive esophagitis -History of dysphagia with solids and liquids -EGD (08/01): severe erosive esophagitis, some ulcerations -Protonix 40mg BID -GI Consult: follow up outpatient 2-3 weeks following discharge 6. Gastric antrum ulcers -NSAID gastritis vs. H.pylori infection -H. pylori culture pending, triple therapy if positive 7. Hiatal Hernia -Consider outpatient Hermann fundoplication 8. Hypokalemia -K 3.4>3.9>3.4 -replace -BMP in AM 9. HTN -aware, continue home meds 10. DM 2 -aware, patient not currently taking medication as patient states one time a doctor told her she was diabetic and then one said she was not 11. Depression - aware, continue home meds Dispo: Inpatient until at least Wednesday, 08/05 for R sided LE revascularization Code: Full DVT ppx: Lovenox Diet: CC Fluids: KVO Addendum - Attending - Attending Attestation Date/Time: 08/02/20 0925 I personally evaluated the patient and discussed the management with Dr. Arriaga. I agree with the History, Examination, Assessment and Plan documented above with any addition or exceptions noted below.
[2020-08-02] MEDS ORDERED: Potassium Chloride 20 MEQ TAB PO SCH (08:00)
[2020-08-02] MEDS: Cilostazol 100 MG TAB PO SCH ×2 (08:29→17:43)
[2020-08-02] MEDS: Clopidogrel Bisulfate 75 MG TAB PO SCH (08:30)
[2020-08-02] MEDS: Cyclobenzaprine 10 MG TAB PO SCH ×3 (08:30→20:03)
[2020-08-02] MEDS: Aspirin Chewable 81 MG TAB PO SCH (08:30)
[2020-08-02] MEDS: FLUoxetine HCl 20 MG CAP PO SCH (08:30)
[2020-08-02] MEDS: Bupropion 150 MG SR TAB PO SCH ×2 (08:30→20:03)
[2020-08-02] MEDS: Losartan 25 MG TAB PO SCH (08:30)
[2020-08-02] MEDS: Ezetimibe 10 MG TAB PO SCH (08:30)
[2020-08-02] MEDS: Gabapentin 300 MG CAP PO SCH ×3 (08:30→20:04)
[2020-08-02] MEDS: Enoxaparin Sodium 40 MG/0.4 ML SYRINGE SC SCH (08:30)
[2020-08-02] MEDS: Amlodipine 10 MG TAB PO SCH (08:30)
[2020-08-02] MEDS: Pantoprazole 40 MG VIAL IVP SCH ×2 (08:30→20:05)
[2020-08-02] MEDS: Hydrochlorothiazide 25 MG TAB PO SCH (08:30)
[2020-08-02] MEDS: Sucralfate 1 GM TAB PO SCH ×3 (11:21→20:04)
[2020-08-02 13:07] VITALS: BMI 33.6
--- NOTE | 2020-08-02 15:13 | PRG ---
DATE OF SERVICE: 08/02/2020 SUBJECTIVE: The patient has been walking around, going to the bathroom, back to the room and concerned about the blisters in the right lower extremity. No respiratory symptoms or abdominal pain. No diarrhea, voiding without difficulty. OBJECTIVE: VITAL SINGS: T-max 99.1, BP 108/54, heart rate 110, respiratory rate 16, and O2 saturation 93%. SKIN: Exam shows increasing number of blisters in the right leg, all around the circumference of the skin below the midportion of the right leg associated with those areas of violaceous discoloration, which likely reflect necrosis of the skin. The left foot fifth toe does not have any skin changes. No ulcers. No erythema. LUNGS. Clear. HEART: S1-S2, regular rate. ABDOMEN: Soft, not distended. LABORATORY DATA: White cell count 6.2, hemoglobin 10.6, and platelets are 157 with 71% neutrophils. Sodium 135, creatinine 1.27, glucose 158. Blood culture, bacillus likely contaminant. The patient had an EGD, which showed grade D reflux, erosive esophagitis, severe. Small ulcerations in the gastric antrum consistent with NSAID gastritis, possible H pylori infection. ASSESSMENT AND DISCUSSION: Type 2 diabetes, chronic smoking, PVD with ulcers, particularly in the right lower extremity, status post treatment to the right lower extremity SFA popliteal artery. Currently, on antimicrobial therapy, on Rocephin. She has developed worsening blistering and has areas of necrosis of skin. We will go ahead and switch her to a broader coverage with Merrem, but the overall prognosis is poor regarding salvage of the extremity with eventual likely requirement for BKA or AKA amputation, but we will see in the next few days how it turns out. Job ID: [id number]
[2020-08-02] MEDS: Atorvastatin Calcium 20 MG TAB PO SCH (20:04)
[2020-08-02] MEDS: Meropenem 1 GM in Sodium Chloride 0.9% 100 ML IVPB SCH (20:05)
[2020-08-02] MEDS: Potassium Chloride 20 MEQ in Premix Bag 1 BAG IVPB SCH (20:05)
[2020-08-03] MEDS ORDERED: traMADol HCl 50 MG TAB PO SCH (00:30)
[2020-08-03] MEDS: HYDROcodone/Acetaminophen 5/325 mg Tablet PO PRN ×3 (04:57→17:59)
--- NOTE | 2020-08-03 05:18 | PDOC.FM ---
- Subjective Subjective: Ms. Sandoval complains of a lot of pain in her legs this morning. She has a lot of drainage from her legs. She received tramadol last night for pain. - Objective Vital Signs & Weight: Vital Signs (12 hours) Temp Pulse Resp BP Pulse Ox 08/03/20 00:00 98.4 F 97 20 129/85 94 L 08/02/20 20:00 98.9 F 106 H 20 107/67 96 Weight Admit Weight 92.986 kg Weight 100.4 kg I&O: 08/01/20 08/02/20 08/03/20 06:59 06:59 06:59 Intake Total 373 282 3956 Output Total 300 Balance 60 700 1780 Result Diagrams: 08/03/20 06:05 08/03/20 06:04 Phys Exam - Physical Examination Constitutional: NAD HEENT: moist MMs, sclera anicteric Neck: full ROM Respiratory: no wheezing, clear to auscultation bilateral Cardiovascular: RRR 3/6 murmur Gastrointestinal: soft, non-tender, no distention, positive bowel sounds Musculoskeletal: edema present ulcers, blisters, and necrosis on left LE Neurological: moves all 4 limbs Psychiatric: normal affect, A&O x 3 Dx/Plan - Plan Plan: 1. Peripheral Vascular Disease -patient has failed outpatient therapy of Keflex, doxy and clinda. Most recently diagnosed with arterial insufficiency outpatient and referral to vasular surgery and set up with wound care, but patient has not followed up -venous: no DVT, arterial dopplers: prominent atherosclerosis, CTA: multilevel calicification and stenoses involving superficial femoral, popliteral, and tibial arteries bilaterally -Consult CV surgery ([facility]): Right LE revascularization 07/31, Plan for left on 08/05 -[place] for pain control -Patient's legs are becoming increasingly splotchy. Dr. Andrews reports patient's right leg is cold and has concern that she will soon require an amputation. Appreciate Dr. Deleon ([facility]) recs. 2. Concern for cellulitis and osteomyelitis of L foot involving 5th digit -WBC, procal, ESR normal, afebrile -b/l LE foot XR showed cellulitis and osteomyelitis involving 5th digit -Vanc discontinued, rocephin switched to meropenem on 08/02 -Blood culture negative at 48 hours -Consult Gen surg: did not recommend surgical intervention at this time due to lack of corresponding physical exam -Consult Darryl: agrees low concern for osteomyelitis. Believes Xray changes are due to fracture. Switched from rocephin to meropenem due to worsening ulcers and areas of necrosis. 3. Non healing ulcers likely 2/2 perfusion deficits Large ulcer on R LE, several small ulcers on L LE -Right heal ulcer that has not been previously dressed or cared for. S pecifically asked wound care to take a look. -wound care consulted -see plan above 4. Syncope 2/2 unknown etiology -3 week history of "blacking out" -brain CT neg in ED -orthostatics wnl -carotid dopplers revealed moderate stenosis of L ICA -ECHO: mitral annular calicification, mild mitral regurgitation, mild aortic stenosis, mild tricuspid regurgitation -was SR on cardiac monitoring for 4 days 5. Dysphagia 2/2 severe erosive esophagitis -History of dysphagia with solids and liquids -EGD (08/01): severe erosive esophagitis, some ulcerations -Protonix 40mg BID -GI Consult: follow up outpatient 2-3 weeks following discharge 6. NSAID induced gastritis -H. pylori culture negative -avoid anti-inflammatories 7. Hiatal Hernia -Consider outpatient Hermann fundoplication 8. Hypokalemia -K 3.4>3.9>3.4 -daily IV replacement, not PO due to patient's severe esophagitis 9. HTN -aware, continue home meds 10. DM 2 -aware, patient not currently taking medication as patient states one time a doctor told her she was diabetic and then one said she was not 11. Depression - aware, continue home meds Dispo: Inpatient until at least Wednesday, 08/05 for R sided LE revascularization Code: Full DVT ppx: Lovenox Diet: CC, Dominik Fluids: KVO Addendum - Attending - Attending Attestation Date/Time: 08/03/20 7725 I personally evaluated the patient and discussed the management with Dr. Arriaga. I agree with the History, Examination, Assessment and Plan documented above with any addition or exceptions noted below. The patient complaining of bilateral leg pain. Legs are profusely weeping. She does not let wound care dress her legs. Awaiting revascularization on the left leg. Continue antibiotics. Will f/u with CV surg recs.
[2020-08-03 06:16] LABS: #Eosinphils 0.1 thou/uL (0.0-0.7); #Lymphocytes 1.2 thou/uL (1.20-3.40); #Monocytes 0.5 thou/uL (0.11-0.59); #Neutrophils 4.3 thou/uL (1.40-6.50); %Basophils 0.2 % (0.0-1.0); %Eosinophils 2.3 % (0.0-10.0); %Lymphocytes 18.6 % (21.0-51.0); %Monocytes 8.7 % (0.0-10.0); %Neutrophils 70.2 % (42.0-75.0); Hemoglobin 10.7 g/dL (12.0-16.0); Mean Corpuscular Hemoglobin 33.1 pg (27.0-31.0); Mean Corpuscular Volume 94.6 fL (78.0-98.0); Mean Platelet Volume 6.1 fL (7.4-10.4); Platelet Count 178 thou/uL (130-400); RBC Distribution Width 12.3 % (11.5-14.5); Red Blood Cell (RBC) Count 3.22 mill/uL (4.20-5.40); White Blood Cell (WBC) Count 6.2 thou/uL (4.8-10.8)
[2020-08-03 06:40] LABS: ALT (SGPT) 42 U/L (8-55); AST (SGOT) 46 U/L (5-34); Albumin 3.9 g/dL (3.4-4.8); Alkaline Phosphatase 62 U/L (40-110); Anion Gap 15 mmol/L (10-20); BUN (Urea Nitrogen) 18 mg/dL (9.8-20.1); Bilirubin, Total 0.3 mg/dL (0.2-1.2); Calc. Creatinine Clearance 69 mL/min (70-130); Calcium 8.9 mg/dL (7.8-10.44); Carbon Dioxide 24 mmol/L (23-31); Chloride 98 mmol/L (98-107); Estimated GFR-MDRD 40; Glucose 135 mg/dL (80-115); Potassium 3.8 mmol/L (3.5-5.1); Protein, Total 6.9 g/dL (6.0-8.3); Sodium 133 mmol/L (136-145)
[2020-08-03] MEDS: Cyclobenzaprine 10 MG TAB PO SCH ×3 (09:09→22:03)
[2020-08-03] MEDS: Ezetimibe 10 MG TAB PO SCH (09:09)
[2020-08-03] MEDS: Hydrochlorothiazide 25 MG TAB PO SCH (09:09)
[2020-08-03] MEDS: Amlodipine 10 MG TAB PO SCH (09:09)
[2020-08-03] MEDS: Aspirin Chewable 81 MG TAB PO SCH (09:10)
[2020-08-03] MEDS: Clopidogrel Bisulfate 75 MG TAB PO SCH (09:10)
[2020-08-03] MEDS: Pantoprazole 40 MG VIAL IVP SCH ×2 (09:10→20:30)
[2020-08-03] MEDS: Losartan 25 MG TAB PO SCH (09:10)
[2020-08-03] MEDS: Gabapentin 300 MG CAP PO SCH ×4 (09:10→20:28)
[2020-08-03] MEDS: Sucralfate 1 GM TAB PO SCH ×4 (09:10→22:04)
[2020-08-03] MEDS: Cilostazol 100 MG TAB PO SCH ×2 (09:11→17:59)
[2020-08-03] MEDS: Enoxaparin Sodium 40 MG/0.4 ML SYRINGE SC SCH (09:11)
[2020-08-03] MEDS: Meropenem 1 GM in Sodium Chloride 0.9% 100 ML IVPB SCH ×2 (09:50→20:28)
[2020-08-03] MEDS: Nicotine 14 MG PATCH TD SCH (09:52)
[2020-08-03] MEDS: Senokot S 8.6-50 MG TAB PO PRN (09:52)
[2020-08-03] MEDS: FLUoxetine HCl 20 MG CAP PO SCH (09:52)
[2020-08-03] MEDS ORDERED: Morphine 2 MG/ML VIAL SLOW IVP SCH (11:30)
[2020-08-03] MEDS: Bupropion 150 MG SR TAB PO SCH ×2 (14:01→20:28)
[2020-08-03] MEDS: Potassium Chloride 20 MEQ in Premix Bag 1 BAG IVPB SCH ×2 (15:40→22:02)
[2020-08-03] MEDS: Atorvastatin Calcium 20 MG TAB PO SCH (20:27)
[2020-08-03] MEDS: Morphine 4 MG/ML VIAL SLOW IVP PRN (20:29)
--- NOTE | 2020-08-04 05:31 | PDOC.FM ---
- Subjective Subjective: Ms. Sandoval is in quite a bit of pain this morning. She says she slept great last night for the first time in many nights after receiving melatonin. - Objective Vital Signs & Weight: Vital Signs (12 hours) Temp Pulse Resp BP Pulse Ox 08/03/20 20:00 98.1 F 113 H 22 H 143/65 H 98 Weight Admit Weight 92.986 kg Weight 100.4 kg I&O: 08/02/20 08/03/20 08/04/20 06:59 06:59 06:59 Intake Total 700 1780 250 Balance 700 1780 250 Result Diagrams: 08/03/20 06:05 08/04/20 08:04 Phys Exam - Physical Examination lying in bed, complaining of pain in legs HEENT: moist MMs, sclera anicteric Neck: full ROM Respiratory: no wheezing, clear to auscultation bilateral Cardiovascular: RRR, no significant murmur Gastrointestinal: soft, non-tender ulcers, blisters on LE bilaterally Neurological: moves all 4 limbs Psychiatric: normal affect, A&O x 3 Dx/Plan - Plan Plan: 1. Peripheral Vascular Disease -venous: no DVT, arterial dopplers: prominent atherosclerosis, CTA: multilevel calicification and stenoses involving superficial femoral, popliteral, and tibial arteries bilaterally -Consult CV surgery (Pancho): Right LE revascularization 07/31, Plan for left on 08/05. Spoke with hr consultant Dr. Moreira yesterday who did not have any recommendations for increasing pain. Stated he suspects amputations may be in the future if she does not improve. -[place] for pain control. Added prn morphine 4mg. -Patient's legs are becoming increasingly splotchy. Dr. Andrews reports patient's right leg is cold and has concern that she will soon require an amputation. Appreciate Dr[facility]leon ([facility] recs. 2. Concern for cellulitis and osteomyelitis of L foot involving 5th digit -WBC, procal, ESR normal, afebrile -b/l LE foot XR showed cellulitis and osteomyelitis involving 5th digit -Vanc discontinued, rocephin switched to meropenem on 08/02 -Blood culture negative at 48 hours -Consult Gen surg: did not recommend surgical intervention at this time due to lack of corresponding physical exam -Consult Darryl: agrees low concern for osteomyelitis. Believes Xray changes are due to fracture. Switched from rocephin to meropenem due to worsening ulcers and areas of necrosis. 3. Non healing ulcers likely 2/2 perfusion deficits Large ulcer on R LE, several small ulcers on L LE, ulcer on right heel -wound care consulted -see plan above 4. Syncope 2/2 unknown etiology -3 week history of "blacking out" -brain CT neg in ED -orthostatics wnl -carotid dopplers revealed moderate stenosis of L ICA -ECHO: mitral annular calicification, mild mitral regurgitation, mild aortic stenosis, mild tricuspid regurgitation -was SR on cardiac monitoring for 4 days 5. Dysphagia 2/2 severe erosive esophagitis -History of dysphagia with solids and liquids -EGD (08/01): severe erosive esophagitis, some ulcerations -Protonix 40mg BID -GI Consult: follow up outpatient 2-3 weeks following discharge 6. NSAID induced gastritis -H. pylori culture negative -avoid anti-inflammatories 7. Hiatal Hernia -Consider outpatient Hermann fundoplication 8. Hypokalemia -K 3.4>3.9>3.4 -daily IV replacement, not PO due to patient's severe esophagitis 9. HTN -aware, continue home meds 10. DM 2 -aware, patient not currently taking medication as patient states one time a doctor told her she was diabetic and then one said she was not 11. Depression - aware, continue home meds Dispo: Inpatient until at least Wednesday, 08/05 for R sided LE revascularization. Awaiting Dr. Deleon to see patient on Wednesday and evaluate R leg. Code: Full DVT ppx: Lovenox Diet: CC, Dominik Fluids: KVO Addendum - Attending - Attending Attestation Date/Time: 08/04/20 1350 I personally evaluated the patient and discussed the management with Dr. Arriaga. I agree with the History, Examination, Assessment and Plan documented above with any addition or exceptions noted below. Pt was in much more pain in her legs yesterday. Pain meds have been adjusted and she was finally able to rest. Pt is scheduled for revascularization procedure on the left leg tomorrow with Dr. Deleon. We did reach out to Dr. Dill regarding the right lower extremity pain and no further intervention is available at this time. Pt's daughter was at bedside this morning and this was discussed with her and the pt who voiced understanding.
[2020-08-04] MEDS: Morphine 4 MG/ML VIAL SLOW IVP PRN ×3 (08:09→19:46)
[2020-08-04] MEDS: Hydrochlorothiazide 25 MG TAB PO SCH (08:10)
[2020-08-04] MEDS: Cilostazol 100 MG TAB PO SCH ×2 (08:11→16:40)
[2020-08-04] MEDS: Sucralfate 1 GM TAB PO SCH ×4 (08:11→21:00)
[2020-08-04] MEDS: Losartan 25 MG TAB PO SCH (08:12)
[2020-08-04] MEDS: Aspirin Chewable 81 MG TAB PO SCH (08:12)
[2020-08-04] MEDS: Clopidogrel Bisulfate 75 MG TAB PO SCH (08:12)
[2020-08-04] MEDS: Nicotine 14 MG PATCH TD SCH (08:12)
[2020-08-04] MEDS: FLUoxetine HCl 20 MG CAP PO SCH (08:12)
[2020-08-04] MEDS: Pantoprazole 40 MG VIAL IVP SCH ×2 (08:12→21:00)
[2020-08-04] MEDS: Amlodipine 10 MG TAB PO SCH (08:13)
[2020-08-04] MEDS: HYDROcodone/Acetaminophen 5/325 mg Tablet PO PRN ×4 (08:13→19:48)
[2020-08-04] MEDS: Ezetimibe 10 MG TAB PO SCH (08:13)
[2020-08-04] MEDS: Senokot S 8.6-50 MG TAB PO PRN (08:13)
[2020-08-04] MEDS: Enoxaparin Sodium 40 MG/0.4 ML SYRINGE SC SCH (08:15)
[2020-08-04 08:31] LABS: Anion Gap 15 mmol/L (10-20); BUN (Urea Nitrogen) 20 mg/dL (9.8-20.1); Calc. Creatinine Clearance 69 mL/min (70-130); Calcium 9.4 mg/dL (7.8-10.44); Carbon Dioxide 27 mmol/L (23-31); Chloride 96 mmol/L (98-107); Estimated GFR-MDRD 40; Glucose 150 mg/dL (80-115); Potassium 3.6 mmol/L (3.5-5.1); Sodium 134 mmol/L (136-145)
[2020-08-04] MEDS: Gabapentin 300 MG CAP PO SCH ×3 (09:00→21:00)
[2020-08-04] MEDS: Cyclobenzaprine 10 MG TAB PO SCH ×3 (10:36→21:00)
[2020-08-04] MEDS: Bupropion 150 MG SR TAB PO SCH ×2 (10:37→21:00)
[2020-08-04] MEDS: MEROPENEM 1 GM/50 ML 1 GM in Premix Bag 1 BAG IVPB SCH ×2 (10:38→21:00)
[2020-08-04] MEDS: Potassium Chloride 20 MEQ in Premix Bag 1 BAG IVPB SCH ×2 (10:38→21:29)
[2020-08-04] MEDS ORDERED: hydrOXYzine 10 MG TAB PO PRN (16:23)
[2020-08-04] MEDS: Atorvastatin Calcium 20 MG TAB PO SCH (21:00)
[2020-08-05] MEDS: Morphine 4 MG/ML VIAL SLOW IVP PRN ×3 (02:20→10:43)
[2020-08-05] MEDS: HYDROcodone/Acetaminophen 5/325 mg Tablet PO PRN ×3 (03:14→11:15)
--- NOTE | 2020-08-05 06:08 | PDOC.FM ---
- Subjective Subjective: Ms. Sandoval is in a lot of pain this morning, reporting her legs are burning. Nursing called and requested more pain medication. She received [place] and morphine this morning. - Objective Vital Signs & Weight: Vital Signs (12 hours) Temp Pulse Resp BP Pulse Ox 08/04/20 19:36 99.5 F 107 H 20 130/75 98 Weight Admit Weight 92.986 kg Weight 100.4 kg I&O: 08/03/20 08/04/20 08/05/20 06:59 06:59 06:59 Intake Total 1780 1350 1010 Output Total 250 Balance 1780 1350 760 Result Diagrams: 08/03/20 06:05 08/04/20 08:04 Phys Exam - Physical Examination Constitutional: NAD HEENT: moist MMs, sclera anicteric Neck: full ROM Respiratory: no wheezing, clear to auscultation bilateral Cardiovascular: RRR 3/6 murmur Gastrointestinal: soft, non-tender, no distention, positive bowel sounds blisters and ulcers LE b/l Neurological: moves all 4 limbs Psychiatric: normal affect, A&O x 3 Dx/Plan - Plan Plan: 1. Peripheral Vascular Disease -venous: no DVT, arterial dopplers: prominent atherosclerosis, CTA: multilevel calicification and stenoses involving superficial femoral, popliteral, and tibial arteries bilaterally -Consult CV surgery (Pancho): Right LE revascularization 07/31, Plan for left on 08/05. -[place] for pain control. Added prn morphine 4mg. Given atarax last night for anxiety. Patient's pain is not being adequately controlled on current regime. Will try and hold off making any changes until we receive Dr. Deleon's recommendations. -Patient's legs are becoming increasingly splotchy. Dr. Andrews reports patient's right leg is cold and has concern that she will soon require an amputation. Dr. Moreira contacted on 08/03 and recommended no intervention. Appreciate Dr. Deleon recs today. 2. Concern for cellulitis and osteomyelitis of L foot involving 5th digit -WBC, procal, ESR normal, afebrile -b/l LE foot XR showed cellulitis and osteomyelitis involving 5th digit -Vanc discontinued, rocephin switched to meropenem on 08/02 -Blood culture negative at 48 hours -Consult Gen surg: did not recommend surgical intervention at this time due to lack of corresponding physical exam -Consult Darryl: agrees low concern for osteomyelitis. Believes Xray changes are due to fracture. Switched from rocephin to meropenem due to worsening ulcers and areas of necrosis. 3. Non healing ulcers likely 2/2 perfusion deficits Large ulcer on R LE, several small ulcers on L LE, ulcer on right heel -wound care consulted -see plan above 4. Syncope 2/2 unknown etiology -3 week history of "blacking out" -brain CT neg in ED -orthostatics wnl -carotid dopplers revealed moderate stenosis of L ICA -ECHO: mitral annular calicification, mild mitral regurgitation, mild aortic stenosis, mild tricuspid regurgitation -was SR on cardiac monitoring for 4 days 5. Dysphagia 2/2 severe erosive esophagitis -History of dysphagia with solids and liquids -EGD (08/01): severe erosive esophagitis, some ulcerations -Protonix 40mg BID -GI Consult: follow up outpatient 2-3 weeks following discharge 6. NSAID induced gastritis -H. pylori culture negative -avoid anti-inflammatories 7. Hiatal Hernia -Consider outpatient Hermann fundoplication 8. Hypokalemia -K 3.4>3.9>3.4 -daily IV replacement, not PO due to patient's severe esophagitis 9. HTN -aware, continue home meds 10. DM 2 -aware, patient not currently taking medication as patient states one time a doctor told her she was diabetic and then one said she was not 11. Depression - aware, continue home meds Dispo: Inpatient until at least Wednesday, 08/05 for R sided LE revascularization. Awaiting Dr. Deleon to see patient on Wednesday and evaluate R leg. Code: Full DVT ppx: Lovenox Diet: CC, Dominik Fluids: KVO
[2020-08-05] MEDS: Sucralfate 1 GM TAB PO SCH ×4 (07:34→21:15)
[2020-08-05] MEDS ORDERED: Iopamidol 370 76% 50 ML VIAL FS ONE (08:58)
[2020-08-05] MEDS ORDERED: Fentanyl 100 MCG/2 ML VIAL ONE (09:21)
[2020-08-05] MEDS ORDERED: Midazolam HCl 2 mg/2 ml Vial ONE (09:21)
[2020-08-05] MEDS ORDERED: Protamine Sulfate 50 MG/5 ML VIAL ONE (09:58)
[2020-08-05] MEDS ORDERED: Heparin 10,000 UNITS/ 10 ML VIAL ONE (09:58)
[2020-08-05] MEDS: Pantoprazole 40 MG VIAL IVP SCH ×2 (10:46→21:16)
[2020-08-05] MEDS: Gabapentin 300 MG CAP PO SCH ×3 (11:15→21:15)
[2020-08-05] MEDS: Losartan 25 MG TAB PO SCH (11:16)
[2020-08-05] MEDS: Amlodipine 10 MG TAB PO SCH (11:16)
[2020-08-05] MEDS: Cilostazol 100 MG TAB PO SCH ×2 (11:16→16:52)
[2020-08-05] MEDS: MEROPENEM 1 GM/50 ML 1 GM in Premix Bag 1 BAG IVPB SCH ×2 (11:37→21:17)
--- NOTE | 2020-08-05 11:51 | OP ---
DATE OF PROCEDURE: 08/05/2020 PREOPERATIVE DIAGNOSIS: Peripheral vascular disease with ulceration of bilateral lower extremities. POSTOPERATIVE DIAGNOSIS: Peripheral vascular disease with ulceration of bilateral lower extremities. PROCEDURES PERFORMED: 1. Ultrasound-guided right femoral artery access. 2. Right external iliac angio with right leg runoff. 3. Left external iliac angio, left superficial femoral artery angio, left popliteal artery angio with lower extremity runoff. 4. Left superficial femoral artery percutaneous transluminal angioplasty with 4x40 Lutonix drug-eluting balloon taken to 12 mmHg for 3 minutes. TOTAL CONTRAST: 36 mL. TOTAL FLUORO TIME: 5.7 minutes. ANESTHESIA: 1% lidocaine/1 mg Versed/100 mcg fentanyl. DESCRIPTION OF PROCEDURE: After consent was obtained, the patient was brought to the cardiac cath rn, placed in the supine position on the cardiac cath rn table. Appropriate monitoring was placed. IV sedation was begun. Right groin was prepped and draped in usual sterile fashion. Using ultrasound guidance, the right groin was anesthetized with 1% lidocaine. Using ultrasound guidance, the right common femoral artery was accessed. A micropuncture sheath placed. This was exchanged for a 5-Lithuanian sheath. Contra catheter was used to guide the YieldBuild guidewire over the aortic bifurcation. Contra was guided down into the external iliac artery. Hand-injected arteriogram was performed, illuminating the common femoral and profunda femoris, which were widely patent. The catheter was then guided down into the common femoral artery. Hand-injected arteriogram was performed and digital angiography used to gustabo contrast down from the groin to the foot. There was a mid SFA near occlusion. The remainder of the superficial femoral and popliteal artery was widely patent. Using angled Buckhorn catheter and Glidewire, the Buckhorn catheter was guided through the near occlusion down into the popliteal artery. Hand- injected arteriogram was performed. There was good flow down into the anterior tibial artery with flow into the foot. The posterior tibial and peroneal arteries were occluded. The patient was given 5000 units of heparin. A Magic Torque guidewire was placed. A 6-Lithuanian destination sheath was then placed in position in the superficial femoral artery. balloon was selected and positioned over the area of near occlusion. This was inflated to 12 mmHg for 3 minutes. Followup angiogram with tip of the sheath in the superficial femoral artery showed excellent result. The sheath was backed back over the aortic bifurcation into the external iliac artery on the right. Hand-injected arteriogram was performed showing an excellent result from a previous angioplasty of the superficial femoral artery down below the knee. ProGlide was deployed. The patient tolerated the procedure well and was transferred to the recovery area. Job ID: [id number] [facility]
[2020-08-05] MEDS: Hydrochlorothiazide 25 MG TAB PO SCH (12:09)
[2020-08-05] MEDS: Ezetimibe 10 MG TAB PO SCH (12:10)
[2020-08-05] MEDS: FLUoxetine HCl 20 MG CAP PO SCH (12:10)
[2020-08-05] MEDS: Bupropion 150 MG SR TAB PO SCH ×2 (12:10→21:15)
[2020-08-05] MEDS: Clopidogrel Bisulfate 75 MG TAB PO SCH (12:10)
[2020-08-05] MEDS: Aspirin Chewable 81 MG TAB PO SCH (12:10)
[2020-08-05] MEDS: Cyclobenzaprine 10 MG TAB PO SCH ×3 (12:11→21:15)
[2020-08-05] MEDS: Nicotine 14 MG PATCH TD SCH (12:15)
[2020-08-05] MEDS: Potassium Chloride 20 MEQ in Premix Bag 1 BAG IVPB SCH ×2 (12:16→21:16)
--- NOTE | 2020-08-05 13:38 | PRG ---
DATE OF SERVICE: 08/05/2020 Ms. Sandoval is a pleasant 64-year-old lady with significant peripheral artery disease and nonhealing ulcers. She has just returned from procedure with Dr. Deleon, whose report I have not seen yet. She is still having a great deal of leg discomfort. We will discuss with CV surgery the feasibility of perhaps starting the patient on parenteral narcotic analgesia with PHARMACOEPIDEMIOLOGIST. Job ID: [id number]
[2020-08-05] MEDS: Enoxaparin Sodium 40 MG/0.4 ML SYRINGE SC SCH (16:49)
[2020-08-05] MEDS: Atorvastatin Calcium 20 MG TAB PO SCH (21:15)
[2020-08-06] MEDS: Melatonin 3 MG TAB PO PRN (00:41)
[2020-08-06] MEDS: HYDROcodone/Acetaminophen 5/325 mg Tablet PO PRN ×2 (01:32→09:30)
[2020-08-06 06:00] LABS: Bacteria/HPF 1+ HPF (None Seen); Bilirubin Negative (Negative); Blood, Urine 3+ (Negative); Clarity Turbid (Clear); Glucose, Urine (Dipstick) Normal (Negative); Ketone, Urine Negative (Negative); Leukocyte 250 Leu/uL (Negative); Nitrite Negative (Negative); Protein, Urine (Dipstick) 30 mg/dL (Neg-Trace); RBC/HPF Greater than 50 HPF (0-3); Specific Gravity, Urine 1.013 (1.002-1.036); Squamous Epithelial 0-3 HPF (0-3); Urobilinogen Normal mg/dL (Less than 2); WBC/HPF Greater than 50 HPF (0-3)
[2020-08-06 06:01] LABS: Urine Culture Reflex Yes Yes
--- NOTE | 2020-08-06 06:21 | PDOC.FM ---
- Subjective Subjective: Ms. Sandoval complains of pain in her legs this morning and was attempting to remove her martinez catheter when I entered the room. I explained the importance of keeping it in and she expressed understanding and agreement. - Objective Vital Signs & Weight: Vital Signs (12 hours) Temp Pulse Resp BP Pulse Ox 08/05/20 23:17 99.1 F 111 H 16 106/73 90 L 08/05/20 19:16 99.3 F 101 H 20 123/78 93 L Weight Admit Weight 92.986 kg Weight 100.4 kg I&O: 08/04/20 08/05/20 08/06/20 06:59 06:59 06:59 Intake Total 1350 2040 Output Total 1250 2900 Balance 1350 790 -2900 Result Diagrams: 08/03/20 06:05 08/04/20 08:04 Phys Exam - Physical Examination lying in bed, flustered and expressing frustration HEENT: moist MMs, sclera anicteric Neck: no nodes, supple, full ROM Respiratory: no wheezing, no rales, no rhonchi, clear to auscultation bilateral Cardiovascular: RRR 3/6 murmur Gastrointestinal: soft, non-tender, no distention, positive bowel sounds Musculoskeletal: edema present no dorsalis pulses b/l, ulcers and blisters on LE b/l Neurological: moves all 4 limbs Psychiatric: normal affect, A&O x 3 Dx/Plan - Plan Plan: 1. Peripheral Vascular Disease -venous: no DVT, arterial dopplers: prominent atherosclerosis, CTA: multilevel calicification and stenoses involving superficial femoral, popliteral, and tibial arteries bilaterally -Consult CV surgery (Pancho): Right LE revascularization 07/31, L LE resvascularization on 08/05 -[place] for pain control. Added prn morphine 4mg. Atarax prn for anxiety. Increased gabapentin to 900mg TID yesterday. Spoke with Dr. Deleon regarding patient's pain control and he does not desire for her to receive more narcotics. Will maximize gabapentin if necessary. -Patient's legs are becoming increasingly splotchy. Dr. Andrews reports patient's right leg is cold and has concern that she will soon require an amputation. Dr. Moreira contacted on 08/03 and recommended no intervention. Spoke with Dr. Deleon following patient's 08/05 procedure. He expressed concern that she may require amputations but is hopeful the the revascularizations will allow them to be BKAs and not AKAs if they are necessary. He is planning to contniue to monitor over the next several days. 2. Non healing ulcers likely 2/2 perfusion deficits Large ulcer on R LE, several small ulcers on L LE, ulcer on right heel -wound care consulted -see plan above 3. Urinary Retention On evening of 08/05, patient expressed that she was unable to urinate. Bladder scan revealed 813mL. Martinez catheter was placed and an output of 2350mL was documented. -UA: 3+ blood, 1+ bacteria, 250LE -UCx pending -Continue martinez catheter to monitor output -Patient is already on meropenem. 4. Concern for cellulitis and osteomyelitis of L foot involving 5th digit -WBC, procal, ESR normal, afebrile -b/l LE foot XR showed cellulitis and osteomyelitis involving 5th digit -Vanc discontinued, rocephin switched to meropenem on 08/02 -Blood culture negative at 48 hours -Consult Gen surg: did not recommend surgical intervention at this time due to lack of corresponding physical exam -Consult Darryl: agrees low concern for osteomyelitis. Believes Xray changes are due to fracture. Switched from rocephin to meropenem due to worsening ulcers and areas of necrosis. 5. Syncope 2/2 unknown etiology -3 week history of "blacking out" -brain CT neg in ED -orthostatics wnl -carotid dopplers revealed moderate stenosis of L ICA -ECHO: mitral annular calicification, mild mitral regurgitation, mild aortic stenosis, mild tricuspid regurgitation -was SR on cardiac monitoring for 4 days 6. Dysphagia 2/2 severe erosive esophagitis -History of dysphagia with solids and liquids -EGD (08/01): severe erosive esophagitis, some ulcerations -Protonix 40mg BID -GI Consult: follow up outpatient 2-3 weeks following discharge 7. NSAID induced gastritis -H. pylori culture negative -avoid anti-inflammatories 8. Hiatal Hernia -Consider outpatient Hermann fundoplication 9. Hypokalemia -K 3.4>3.8>3.6 -daily IV replacement, not PO due to patient's severe esophagitis 10. HTN -aware, continue home meds 11. DM 2 -aware, patient not currently taking medication as patient states one time a doctor told her she was diabetic and then one said she was not 12. Depression - aware, continue home meds Dispo: Inpatient until at least Wednesday, 08/05 for R sided LE revascularization. Awaiting Dr. Deleon to see patient on Wednesday and evaluate R leg. Code: Full DVT ppx: Lovenox Diet: CC, Dominik Fluids: KVO
[2020-08-06] MEDS: Ezetimibe 10 MG TAB PO SCH (08:27)
[2020-08-06] MEDS: Sucralfate 1 GM TAB PO SCH ×4 (08:27→22:45)
[2020-08-06] MEDS: Amlodipine 10 MG TAB PO SCH (08:27)
[2020-08-06] MEDS: Pantoprazole 40 MG VIAL IVP SCH ×2 (08:27→20:26)
[2020-08-06] MEDS: Hydrochlorothiazide 25 MG TAB PO SCH (08:27)
[2020-08-06] MEDS: FLUoxetine HCl 20 MG CAP PO SCH (08:27)
[2020-08-06] MEDS: Nicotine 14 MG PATCH TD SCH (08:27)
[2020-08-06] MEDS: Aspirin Chewable 81 MG TAB PO SCH (08:27)
[2020-08-06] MEDS: Enoxaparin Sodium 40 MG/0.4 ML SYRINGE SC SCH (08:27)
[2020-08-06] MEDS: Cilostazol 100 MG TAB PO SCH ×2 (08:28→16:46)
[2020-08-06] MEDS: Losartan 25 MG TAB PO SCH (08:28)
[2020-08-06] MEDS: Clopidogrel Bisulfate 75 MG TAB PO SCH (08:28)
[2020-08-06] MEDS: Bupropion 150 MG SR TAB PO SCH ×2 (09:30→20:26)
[2020-08-06] MEDS: Cyclobenzaprine 10 MG TAB PO SCH ×3 (09:30→20:26)
[2020-08-06] MEDS: MEROPENEM 1 GM/50 ML 1 GM in Premix Bag 1 BAG IVPB SCH ×2 (09:30→20:28)
[2020-08-06] MEDS: Gabapentin 300 MG CAP PO SCH ×3 (10:35→20:26)
[2020-08-06] MEDS: Potassium Chloride 20 MEQ in Premix Bag 1 BAG IVPB SCH ×2 (10:36→21:08)
[2020-08-06] MEDS ORDERED: HYDROcodone/Acetaminophen 10/325 mg Tablet PO PRN (11:09)
[2020-08-06] MEDS: Senokot S 8.6-50 MG TAB PO PRN (11:53)
[2020-08-06 12:00] LABS: #Eosinphils 0.1 thou/uL (0.0-0.7); #Lymphocytes 1.2 thou/uL (1.20-3.40); #Monocytes 0.6 thou/uL (0.11-0.59); %Basophils 0.4 % (0.0-1.0); %Eosinophils 0.7 % (0.0-10.0); %Lymphocytes 12.3 % (21.0-51.0); %Monocytes 6.5 % (0.0-10.0); %Neutrophils 80.2 % (42.0-75.0); Hemoglobin 9.5 g/dL (12.0-16.0); Mean Corpuscular Hemoglobin 33.2 pg (27.0-31.0); Mean Corpuscular Volume 94.9 fL (78.0-98.0); Mean Platelet Volume 6.6 fL (7.4-10.4); Platelet Count 181 thou/uL (130-400); RBC Distribution Width 12.3 % (11.5-14.5); Red Blood Cell (RBC) Count 2.87 mill/uL (4.20-5.40); White Blood Cell (WBC) Count 9.9 thou/uL (4.8-10.8)
[2020-08-06 12:25] LABS: ALT (SGPT) 28 U/L (8-55); AST (SGOT) 23 U/L (5-34); Albumin 3.3 g/dL (3.4-4.8); Alkaline Phosphatase 54 U/L (40-110); Anion Gap 12 mmol/L (10-20); BUN (Urea Nitrogen) 15 mg/dL (9.8-20.1); Bilirubin, Total 0.4 mg/dL (0.2-1.2); Calc. Creatinine Clearance 86 mL/min (70-130); Calcium 8.6 mg/dL (7.8-10.44); Carbon Dioxide 27 mmol/L (23-31); Chloride 97 mmol/L (98-107); Estimated GFR-MDRD 52; Globulin 2.9 g/dL (2.4-3.5); Glucose 181 mg/dL (80-115); Potassium 3.3 mmol/L (3.5-5.1); Protein, Total 6.2 g/dL (6.0-8.3); Sodium 133 mmol/L (136-145)
[2020-08-06] MEDS ORDERED: Potassium Chloride 20 MEQ TAB PO SCH (13:00)
[2020-08-06] MEDS: HYDROcodone/Acetaminophen 10/325 mg Tablet PO PRN ×2 (13:24→19:43)
--- NOTE | 2020-08-06 17:51 | PRG ---
DATE OF SERVICE: 08/06/2020 SUBJECTIVE: Still having quite a bit of pain in her lower extremities and no respiratory symptoms, no abdominal pain. OBJECTIVE: VITAL SIGNS: T-max 99.4, blood pressure stable, heart rate 104, respiratory rate 16, O2 saturation 94%. GENERAL: She is upset about the persistence of the changes in the lower extremities. LUNGS: Clear. HEART: S1 and S2, regular rate. ABDOMEN: Soft, not distended. EXTREMITIES: Multiple ulcers in lower extremities, particularly on the right side. LABORATORY DATA: White cell count 9.9, hemoglobin 9.5, platelets 181. Creatinine 1.07. The patient had left lower extremity revascularization yesterday by Dr. Deleon. She continues on meropenem. ASSESSMENT AND DISCUSSION: Type 2 diabetes, chronic smoking, PVD with ulcers with treatment both in right and left lower extremities now, on broad-spectrum coverage. Still with guarded prognosis regarding salvage of the extremities. Job ID: [id number] [facility]
[2020-08-06] MEDS: Atorvastatin Calcium 20 MG TAB PO SCH (20:27)
[2020-08-07] MEDS: Melatonin 3 MG TAB PO PRN (00:57)
[2020-08-07] MEDS: HYDROcodone/Acetaminophen 10/325 mg Tablet PO PRN ×2 (00:58→05:03)
[2020-08-07] MEDS: Morphine 4 MG/ML VIAL SLOW IVP PRN (02:32)
--- NOTE | 2020-08-07 06:13 | PDOC.FM ---
- Subjective Subjective: Ms. Sandoval was sleeping quietly this morning. - Objective Vital Signs & Weight: Vital Signs (12 hours) Temp Pulse Resp BP Pulse Ox 08/06/20 19:35 92 L 08/06/20 19:28 97.7 F 102 H 16 115/69 92 L Weight Admit Weight 92.986 kg Weight 100.4 kg I&O: 08/05/20 08/06/20 08/07/20 06:59 06:59 06:59 Intake Total 2040 720 1860 Output Total 1250 3350 3875 Balance 790 -8440 -2014 Result Diagrams: 08/06/20 11:45 08/07/20 06:19 Phys Exam - Physical Examination Constitutional: NAD HEENT: moist MMs Neck: full ROM Respiratory: no wheezing, clear to auscultation bilateral Cardiovascular: RRR, no significant murmur Gastrointestinal: soft, non-tender, positive bowel sounds Musculoskeletal: edema present no palpable dorsalis pedis pulses, blisters and ulcers on LE b/l Neurological: moves all 4 limbs Psychiatric: normal affect, A&O x 3 Dx/Plan - Plan Plan: 1. Peripheral Vascular Disease -venous: no DVT, arterial dopplers: prominent atherosclerosis, CTA: multilevel calicification and stenoses involving superficial femoral, popliteral, and tibial arteries bilaterally -Consult CV surgery (Pancho): Right LE revascularization 07/31, L LE resva scularization on 08/05. -[place] for pain control. Added prn morphine 4mg. Atarax prn for anxiety. [place] apentin 900mg TID. Spoke with Dr. Deleon regarding patient's pain control and he does not desire for her to receive more narcotics. Will maximize gabapentin if necessary. 2. Non healing ulcers likely 2/2 perfusion deficits Large ulcer on R LE, several small ulcers on L LE, ulcer on right heel -wound care consulted -see plan above 3. Urinary Retention On evening of 08/05, patient expressed that she was unable to urinate. Bladder scan revealed 813mL. Martinez catheter was placed and an output of 2350mL was documented. -UA: 3+ blood, 1+ bacteria, 250LE -UCx pending -Continue martinez catheter to monitor output -Patient is already on meropenem -Nursing is working on bladder training to remove catheter 4. Concern for cellulitis and osteomyelitis of L foot involving 5th digit -WBC, procal, ESR normal, afebrile -b/l LE foot XR showed cellulitis and osteomyelitis involving 5th digit -Vanc discontinued, rocephin switched to meropenem on 08/02 -Blood culture negative at 48 hours -Consult Gen surg: did not recommend surgical intervention at this time due to lack of corresponding physical exam -Consult Darryl: agrees low concern for osteomyelitis. Believes Xray changes are due to fracture. Switched from rocephin to meropenem due to worsening ulcers and areas of necrosis. 5. Syncope 2/2 unknown etiology -3 week history of "blacking out" -brain CT neg in ED -orthostatics wnl -carotid dopplers revealed moderate stenosis of L ICA -ECHO: mitral annular calicification, mild mitral regurgitation, mild aortic stenosis, mild tricuspid regurgitation -was SR on cardiac monitoring for 4 days 6. Dysphagia 2/2 severe erosive esophagitis -History of dysphagia with solids and liquids -EGD (08/01): severe erosive esophagitis, some ulcerations -Protonix 40mg BID -GI Consult: follow up outpatient 2-3 weeks following discharge 7. NSAID induced gastritis -H. pylori culture negative -avoid anti-inflammatories 8. Hiatal Hernia -Consider outpatient Hermann fundoplication 9. Hypokalemia -K 4.1 -daily IV replacement, not PO due to patient's severe esophagitis 10. HTN -aware, continue home meds 11. DM 2 -aware, patient not currently taking medication as patient states one time a doctor told her she was diabetic and then one said she was not 12. Depression - aware, continue home meds Dispo: Discharge pending Dr. Deleon's evaluation of patient's vascularization and the possibility of amputation. Code: Full DVT ppx: Lovenox Diet: CC, Dominik Fluids: KVO
[2020-08-07 06:54] LABS: Anion Gap 9 mmol/L (10-20); BUN (Urea Nitrogen) 19 mg/dL (9.8-20.1); Calc. Creatinine Clearance 89 mL/min (70-130); Calcium 8.7 mg/dL (7.8-10.44); Carbon Dioxide 31 mmol/L (23-31); Chloride 98 mmol/L (98-107); Estimated GFR-MDRD 54; Glucose 147 mg/dL (80-115); Potassium 4.1 mmol/L (3.5-5.1); Sodium 134 mmol/L (136-145)
[2020-08-07] MEDS ORDERED: Potassium Chloride 20 MEQ TAB PO SCH ×2 (08:00)
[2020-08-07] MEDS: Aspirin Chewable 81 MG TAB PO SCH (09:26)
[2020-08-07] MEDS: Gabapentin 300 MG CAP PO SCH ×3 (09:28→20:58)
[2020-08-07] MEDS: Sucralfate 1 GM TAB PO SCH ×4 (09:28→22:28)
[2020-08-07] MEDS: FLUoxetine HCl 20 MG CAP PO SCH (09:28)
[2020-08-07] MEDS: Amlodipine 10 MG TAB PO SCH (09:28)
[2020-08-07] MEDS: Ezetimibe 10 MG TAB PO SCH (09:28)
[2020-08-07] MEDS: Losartan 25 MG TAB PO SCH (09:28)
[2020-08-07] MEDS: Clopidogrel Bisulfate 75 MG TAB PO SCH (09:28)
[2020-08-07] MEDS: Hydrochlorothiazide 25 MG TAB PO SCH (09:29)
[2020-08-07] MEDS: Cilostazol 100 MG TAB PO SCH ×2 (09:30→19:09)
[2020-08-07] MEDS: Nicotine 14 MG PATCH TD SCH (09:30)
[2020-08-07] MEDS: Bupropion 150 MG SR TAB PO SCH ×2 (09:30→20:58)
[2020-08-07] MEDS: Enoxaparin Sodium 40 MG/0.4 ML SYRINGE SC SCH (09:31)
[2020-08-07] MEDS: Cyclobenzaprine 10 MG TAB PO SCH (09:31)
[2020-08-07] MEDS: MEROPENEM 1 GM/50 ML 1 GM in Premix Bag 1 BAG IVPB SCH ×2 (09:31→20:20)
[2020-08-07] MEDS: Pantoprazole 40 MG VIAL IVP SCH ×2 (09:32→20:59)
[2020-08-07] MEDS: Potassium Chloride 20 MEQ in Premix Bag 1 BAG IVPB SCH ×2 (09:32→20:55)
[2020-08-07] MEDS ORDERED: Zolpidem Tartrate 5 MG TAB PO PRN (09:45)
[2020-08-07] MEDS ORDERED: diphenhydrAMINE 50 MG/ML VIAL IM/IV PRN (09:45)
[2020-08-07] MEDS ORDERED: fentaNYL Citrate/PF 2,000 MCG in Sodium Chloride 0.9% 60 ML IV PRN (09:45)
[2020-08-07] MEDS ORDERED: Promethazine HCl 25 MG/ML VIAL IM PRN (09:45)
[2020-08-07] MEDS ORDERED: Naloxone HCl 0.4 mg/ml Vial IV PRN (09:45)
--- NOTE | 2020-08-07 13:25 | PRG ---
DATE OF SERVICE: 08/07/2020 I have examined Ms. Sandoval. I have also reviewed the note of Dr. Manuel Arriaga and discussed the case with her. Ms. Sandoval is a very unfortunate lady with significant peripheral vascular disease, status post revascularization of her left leg. She is still having problems with pain control despite q.4 hours [place] 10 mg supplemented with intravenous morphine. The vascular surgeon will make a decision within the next couple of days about whether amputation may become necessary for this unfortunate patient. We appreciate the input. We will continue to follow with him. Job ID: [id number]
[2020-08-07] MEDS: Atorvastatin Calcium 20 MG TAB PO SCH (20:59)
[2020-08-07] MEDS: Cyclobenzaprine 10 MG TAB PO PRN (20:59)
[2020-08-08] MEDS: Melatonin 3 MG TAB PO PRN ×2 (02:26→20:13)
[2020-08-08] MEDS: Milk Of Magnesia 30 ML UDCUP PO PRN (04:16)
--- NOTE | 2020-08-08 06:08 | PDOC.FM ---
- Subjective Subjective: Patient complains of pain in her lower extremities. She says she is confused by the TRAY SERVICE WORKER pump and doesn't know how to use it. She is more awake than she was yesterday. - Objective Vital Signs & Weight: Vital Signs (12 hours) Temp Pulse Resp BP Pulse Ox 08/08/20 03:58 98.3 F 111 H 16 135/71 92 L 08/07/20 23:54 99.1 F 118 H 20 150/70 H 92 L 08/07/20 20:20 92 L 08/07/20 20:00 98.6 F 120 H 16 123/71 92 L Weight Admit Weight 92.986 kg Weight 100.4 kg I&O: 08/06/20 08/07/20 08/08/20 06:59 06:59 06:59 Intake Total 720 1860 1560 Output Total 3350 4159 3530 [facility] -2630 -2015 -1165 Result Diagrams: 08/06/20 11:45 08/07/20 06:19 Phys Exam - Physical Examination Constitutional: NAD HEENT: moist MMs, sclera anicteric Neck: no nodes, supple, full ROM Respiratory: no wheezing, no rales, no rhonchi, clear to auscultation bilateral Cardiovascular: RRR 3/6 murmur Gastrointestinal: soft, non-tender, no distention, positive bowel sounds Musculoskeletal: edema present blisters and ulcers on LE b/l Neurological: non-focal, moves all 4 limbs Psychiatric: normal affect, A&O x 3 Dx/Plan - Plan Plan: 1. Peripheral Vascular Disease -venous: no DVT, arterial dopplers: prominent atherosclerosis, CTA: multilevel calicification and stenoses involving superficial femoral, popliteral, and tibial arteries bilaterally -Consult CV surgery (Pancho): Right LE revascularization 07/31, L LE resvascularization on 08/05. Continues to monitor. Concern for BKA, noted improvement on 08/07. -Dr. Andrews consulted anesthesia on 08/07 for better pain control. Patient was placed on fentanyl TRAY SERVICE WORKER. Atarax prn for anxiety. Gabapentin 900mg TID. 2. Non healing ulcers likely 2/2 perfusion deficits Large ulcer on R LE, several small ulcers on L LE, ulcer on right heel -wound care consulted -see plan above 3. Urinary Retention On evening of 10/12, patient expressed that she was unable to urinate. Bladder scan revealed 813mL. Martinez catheter was placed and an output of 2350mL was documented. -UA: 3+ blood, 1+ bacteria, 250LE -UCx pending -Continue martinez catheter to monitor output -Patient is already on meropenem -Nursing is working on bladder training to remove catheter 4. Concern for cellulitis and osteomyelitis of L foot involving 5th digit -WBC, procal, ESR normal, afebrile -b/l LE foot XR showed cellulitis and osteomyelitis involving 5th digit -Vanc discontinued, rocephin switched to meropenem on 08/02 -Blood culture negative at 48 hours -Consult Gen surg: did not recommend surgical intervention at this time due to lack of corresponding physical exam -Consult Darryl: agrees low concern for osteomyelitis. Believes Xray changes are due to fracture. Switched from rocephin to meropenem due to worsening ulcers and areas of necrosis. 5. Syncope 2/2 unknown etiology -3 week history of "blacking out" -brain CT neg in ED -orthostatics wnl -carotid dopplers revealed moderate stenosis of L ICA -ECHO: mitral annular calicification, mild mitral regurgitation, mild aortic stenosis, mild tricuspid regurgitation -was SR on cardiac monitoring for 4 days 6. Dysphagia 2/2 severe erosive esophagitis -History of dysphagia with solids and liquids -EGD (08/01): severe erosive esophagitis, some ulcerations -Protonix 40mg BID IV -GI Consult: follow up outpatient 2-3 weeks following discharge 7. NSAID induced gastritis -H. pylori culture negative -avoid anti-inflammatories 8. Hiatal Hernia -Consider outpatient Hermann fundoplication 9. Hypokalemia -K 4.1 -daily IV replacement, not PO due to patient's severe esophagitis 10. HTN -aware, continue home meds 11. DM 2 -aware, patient not currently taking medication as patient states one time a doctor told her she was diabetic and then one said she was not 12. Depression - aware, continue home meds Dispo: Discharge pending Dr. Deleon's evaluation of patient's vascularization and the possibility of amputation. Code: Full DVT ppx: Lovenox Diet: CC, Dominik Fluids: KVO
[2020-08-08] MEDS: Potassium Chloride 20 MEQ in Premix Bag 1 BAG IVPB SCH ×3 (09:00→20:14)
[2020-08-08] MEDS: MEROPENEM 1 GM/50 ML 1 GM in Premix Bag 1 BAG IVPB SCH ×3 (09:00→20:14)
[2020-08-08] MEDS: Pantoprazole 40 MG VIAL IVP SCH ×3 (09:00→20:12)
[2020-08-08] MEDS: Sucralfate 1 GM TAB PO SCH ×4 (10:24→20:12)
[2020-08-08] MEDS: Polyethylene Glycol 3350 17 GM Packet PO SCH (10:43)
[2020-08-08] MEDS: Amlodipine 10 MG TAB PO SCH (10:43)
[2020-08-08] MEDS: Clopidogrel Bisulfate 75 MG TAB PO SCH (10:44)
[2020-08-08] MEDS: Ezetimibe 10 MG TAB PO SCH (10:44)
[2020-08-08] MEDS: FLUoxetine HCl 20 MG CAP PO SCH (10:45)
[2020-08-08] MEDS: Gabapentin 300 MG CAP PO SCH ×3 (10:45→21:45)
[2020-08-08] MEDS: Cilostazol 100 MG TAB PO SCH ×2 (10:46→16:34)
[2020-08-08] MEDS: Aspirin Chewable 81 MG TAB PO SCH (10:46)
[2020-08-08] MEDS: Bupropion 150 MG SR TAB PO SCH ×2 (10:47→20:13)
[2020-08-08] MEDS: Enoxaparin Sodium 40 MG/0.4 ML SYRINGE SC SCH (10:47)
[2020-08-08] MEDS: Nicotine 14 MG PATCH TD SCH (10:47)
[2020-08-08] MEDS: Losartan 25 MG TAB PO SCH (10:48)
[2020-08-08] MEDS: Hydrochlorothiazide 25 MG TAB PO SCH (10:49)
--- NOTE | 2020-08-08 14:26 | PRG ---
DATE OF SERVICE: 08/08/2020 Ms. Sandoval is resting quietly in bed, in no acute distress. There has been a POST CLOSING SPECIALIST pain infusion started on the patient and she at least at this time seems more comfortable. We will continue to follow with the Cardiovascular Surgery Team as well. Job ID: [id number]
--- NOTE | 2020-08-08 15:51 | SPC ---
Left upper extremity PICC placement sonographic guided HISTORY: Infection. Need for long-term antibiotics. FINDINGS: After explaining the procedure and answering all questions, left upper extremity was preppe d and draped in usual sterile fashion. Sterile technique, buffered local anesthesia, sonographic guidance, and a 22-gauge needle were used t o carefully access the left basilic vein. Standard technique was used to place the tip of a 5 [place] single lumen PICC so that the tip lies at the level of the superior vena cava. Catheter was flushed and secured externally. Patient tolerated the procedure well and was returned in unchanged condition. Fluoroscopy time 0 seconds. IMPRESSION : Left upper extremity PICC is ready for use.
[2020-08-08] MEDS: Ondansetron PF 4 MG/2 ML Vial IVP PRN (20:12)
[2020-08-08] MEDS: Docusate 100 MG CAP PO SCH (20:13)
[2020-08-08] MEDS: Atorvastatin Calcium 20 MG TAB PO SCH (20:13)
[2020-08-08] MEDS: Senokot S 8.6-50 MG TAB PO SCH (20:13)
--- NOTE | 2020-08-09 06:33 | PDOC.FM ---
- Subjective Subjective: Ms. Sandoval appears more comfortable today and less in pain. She seems to be having problems with short term memory, not being able to recall what Dr. Deleon told her on his rounds an hour prior to me seeing her. - Objective Vital Signs & Weight: Vital Signs (12 hours) Temp Pulse Resp BP BP Pulse Ox 08/09/20 04:54 98.9 F 105 H 20 127/68 92 L 08/09/20 00:42 99.2 F 109 H 16 134/79 92 L 08/08/20 19:16 98.8 F 108 H 16 118/60 93 L Weight Admit Weight 92.986 kg Weight 100.4 kg I&O: 08/07/20 08/08/20 08/09/20 06:59 06:59 06:59 Intake Total 1860 4187 1270 Output Total 9727 1734 2937 [facility] -2014 -388 -3655 Result Diagrams: 08/06/20 11:45 08/07/20 06:19 Phys Exam - Physical Examination Constitutional: NAD HEENT: moist MMs, sclera anicteric Neck: no nodes, supple Respiratory: no wheezing, no rales, no rhonchi, clear to auscultation bilateral Cardiovascular: RRR, no significant murmur Gastrointestinal: soft, non-tender, no distention, positive bowel sounds Musculoskeletal: edema present blisters and ulcers on LE b/l Neurological: moves all 4 limbs Psychiatric: A&O x 3 Dx/Plan - Plan Plan: 1. Peripheral Vascular Disease -venous: no DVT, arterial dopplers: prominent atherosclerosis, CTA: multilevel calicification and stenoses involving superficial femoral, popliteral, and tibial arteries bilaterally -Consult CV surgery (Pancho): Right LE revascularization 07/31, L LE resvascularization on 08/05. Continues to monitor. Concern for BKA, noted improvement on 08/07 but no change on 08/09. Unsure of his plan moving forward. -Dr. Andrews consulted anesthesia on 08/07 for better pain control. Patient was placed on fentanyl HAND COOPER HELPER and given a fentanyl patch. Atarax prn for anxiety. Gabapentin 900mg TID. 2. Non healing ulcers likely 2/2 perfusion deficits Large ulcer on R LE, several small ulcers on L LE, ulcer on right heel -wound care consulted -see plan above 3. Urinary Retention On evening of 08/05, patient expressed that she was unable to urinate. Bladder scan revealed 813mL. Martinez catheter was placed and an output of 2350mL was documented. -UA: 3+ blood, 1+ bacteria, 250LE -UCx shows no growth -Continue martinez catheter to monitor output -Patient is already on meropenem -Nursing planning on removing martinez catheter and placing pure wick today. 4. Concern for cellulitis and osteomyelitis of L foot involving 5th digit -WBC, procal, ESR normal, afebrile -b/l LE foot XR showed cellulitis and osteomyelitis involving 5th digit -Vanc discontinued, rocephin switched to meropenem on 08/02 -Blood culture negative at 48 hours -Consult Gen surg: did not recommend surgical intervention at this time due to lack of corresponding physical exam -Consult Darryl: agrees low concern for osteomyelitis. Believes Xray changes are due to fracture. Switched from rocephin to meropenem due to worsening ulcers and areas of necrosis. 5. Syncope 2/2 unknown etiology -3 week history of "blacking out" -brain CT neg in ED -orthostatics wnl -carotid dopplers revealed moderate stenosis of L ICA -ECHO: mitral annular calicification, mild mitral regurgitation, mild aortic stenosis, mild tricuspid regurgitation -was SR on cardiac monitoring for 4 days 6. Dysphagia 2/2 severe erosive esophagitis -History of dysphagia with solids and liquids -EGD (08/01): severe erosive esophagitis, some ulcerations -Protonix 40mg BID IV -GI Consult: follow up outpatient 2-3 weeks following discharge 7. NSAID induced gastritis -H. pylori culture negative -avoid anti-inflammatories 8. Hiatal Hernia -Consider outpatient Hermann fundoplication 9. Hypokalemia -K 4.1 -daily IV replacement, not PO due to patient's severe esophagitis 10. HTN -aware, continue home meds 11. DM 2 -aware, patient not currently taking medication as patient states one time a doctor told her she was diabetic and then one said she was not 12. Depression - aware, continue home meds Dispo: Discharge pending Dr. Deleon's evaluation of patient's vascularization and the possibility of amputation. Code: Full DVT ppx: Lovenox Diet: CC, Dominik Fluids: KVO
[2020-08-09] MEDS: Enoxaparin Sodium 40 MG/0.4 ML SYRINGE SC SCH (08:56)
[2020-08-09] MEDS: Bupropion 150 MG SR TAB PO SCH ×2 (08:56→21:26)
[2020-08-09] MEDS: Polyethylene Glycol 3350 17 GM Packet PO SCH (08:56)
[2020-08-09] MEDS: Pantoprazole 40 MG VIAL IVP SCH ×2 (08:56→21:28)
[2020-08-09] MEDS: Senokot S 8.6-50 MG TAB PO SCH ×2 (08:56→21:27)
[2020-08-09] MEDS: Docusate 100 MG CAP PO SCH (08:57)
[2020-08-09] MEDS: FLUoxetine HCl 20 MG CAP PO SCH (08:57)
[2020-08-09] MEDS: Amlodipine 10 MG TAB PO SCH (08:57)
[2020-08-09] MEDS: Clopidogrel Bisulfate 75 MG TAB PO SCH (08:57)
[2020-08-09] MEDS: Cilostazol 100 MG TAB PO SCH ×2 (08:57→16:15)
[2020-08-09] MEDS: Ezetimibe 10 MG TAB PO SCH (08:57)
[2020-08-09] MEDS: Gabapentin 300 MG CAP PO SCH ×3 (08:57→21:26)
[2020-08-09] MEDS: Aspirin Chewable 81 MG TAB PO SCH (08:57)
[2020-08-09] MEDS: Sucralfate 1 GM TAB PO SCH ×4 (08:57→21:27)
[2020-08-09] MEDS: MEROPENEM 1 GM/50 ML 1 GM in Premix Bag 1 BAG IVPB SCH ×2 (08:57→21:25)
[2020-08-09] MEDS: Hydrochlorothiazide 25 MG TAB PO SCH (08:58)
[2020-08-09] MEDS: Losartan 25 MG TAB PO SCH (08:59)
[2020-08-09] MEDS: Milk Of Magnesia 30 ML UDCUP PO PRN (09:01)
[2020-08-09] MEDS: Nicotine 14 MG PATCH TD SCH (09:55)
[2020-08-09] MEDS: Potassium Chloride 20 MEQ in Premix Bag 1 BAG IVPB SCH ×2 (10:57→21:25)
--- NOTE | 2020-08-09 11:11 | PRG ---
DATE OF SERVICE: 08/09/2020 Ms. Sandoval seems to be in much better spirits this morning. Her pain is seemingly better controlled with fentanyl and PROTEIN SPECIALIST. We are still awaiting a definitive plan from CV Surgery regarding the possibility of amputation versus continued current management. Job ID: [id number]
--- NOTE | 2020-08-09 15:55 | PDOC.BPN ---
- Brief Progress Note Transition of Care Note: Patient is a 64yo F with a PMH of DM2, anemia, CKD, depression, HTN, and neuropathy who presented on July 29 with a chief complaint of increasing b/l LE pain with nonhealing ulcers and syncope. Ulcers began in December 2019 following a dog bite and has been treated outpatient with antibiotics multiple times. She has been referred to vascular surgery and wound care outpatient but has not been able to follow-up. On presentation, patient complains of increasing pain in her lower extremities bilaterally and swelling. Patient also complains of a three week history of blackout and falls, stating she passes out every other day. Patient also complains of dysphagia to solids and liquids over past 2-3 months, explaining she feels as if things get caught on her throat but has never experienced regurgitation. Xray of left foot showed cellulitis and possible osteomyelitis involving the 5th digit. Patient was examined by General Surgery (Juan C) who did not feel the clinical picture corresponded to osteomyelitis and ID (Darryl) who agreed. Dr. Andrews did place patient on vanc and Rocephin which was later change to meropenem to cover any skin infection that may be superimposed on her ischemic changes. In regards to patients syncope, a workup was completed including a negative brain CT, normal orthostatics, carotid dopplers that revealed moderate stenosis of L ICA and an echo that revealed mitral annular calicification, mild mitral regurgitation, mild aortic stenosis, and mild tricuspid regurgitation. Patient was on cardiac monitoring for the first 4 days of her stay and remained in sinus rhythm. Patient has not experienced any syncopal events during hospitalization. In regards to patients dysphagia, GI was consulted and an endoscopy revealed severe esophagitis, a 4cm hiatal hernia, and three small ulcerations in the gastric antrum consistent with NSAID gastritis as H.pylori was negative this hospitalization. It was concluded that patients dysphagia was likely due to her severe reflux esophagitis. Patient was started on protonix 40mg BID and recommended to follow-up with general surgery outpatient for possible Hermann fundoplication and [facility] to further evaluation of her dysphagia. In regards to patients nonhealing ulcers an arterial doppler revealed prominent atherosclerosis and a subsequent CTA revealed occluded R and L posterior tibial artery. Venous doppler showed no evidence of DVT. CV surgery (Pancho) was consulted and completed revascularization of the patients right leg on 07/31 and her left leg on 08/05. Patient was in extreme pain following her revascularizations that was not well- controlled on norco and morphine. Ultimately, pain management was consulted and patient was placed on a fentanyl patch. A picc line was placed on August 08 for ease of access. Dr. Deleon continues to monitor patients recovery from revascularization. At the time of this note he does not think amputation will be necessary and feels that she is making progress. Patient will require placement for wound care upon discharge. Patient is currently suffering from opioid induced constipation and being treated with milk of magnesia, lactulose, and sonokat. An enema may be considered. Patient had an episode of urinary retention and a martinez catheter was inserted. Martinez has since been removed and a pure wick placed. Patient is unable to ambulate to the bathroom because of the pain in her legs.
[2020-08-09] MEDS: traMADol HCl 50 MG TAB PO PRN ×2 (16:15→21:27)
[2020-08-09] MEDS: Atorvastatin Calcium 20 MG TAB PO SCH (21:26)
[2020-08-09] MEDS: Melatonin 3 MG TAB PO PRN (21:27)
[2020-08-09] MEDS: Ondansetron PF 4 MG/2 ML Vial IVP PRN (21:39)
--- NOTE | 2020-08-10 05:34 | PDOC.FM ---
- Subjective Subjective: Pt resting comfortably. Dr. Deleon had just come by to see her. Pain controlled. No bowel movement - Objective Vital Signs & Weight: Vital Signs (12 hours) Temp Pulse Resp BP Pulse Ox 08/09/20 20:00 98.7 F 105 H 18 122/60 93 L Weight Admit Weight 92.986 kg Weight 100.4 kg I&O: 08/08/20 08/09/20 08/10/20 06:59 06:59 06:59 Intake Total 2737 1270 1400 Output Total 3125 4925 1100 Balance -388 -3655 300 Result Diagrams: 08/06/20 11:45 08/07/20 06:19 Phys Exam - Physical Examination Constitutional: NAD HEENT: moist MMs, sclera anicteric Neck: supple, full ROM Respiratory: no wheezing, clear to auscultation bilateral Cardiovascular: RRR 2/6 systolic murmur head at upper sternal border Gastrointestinal: soft, no distention mild tenderness to palpation Musculoskeletal: pulses present LE warm, mild edema Neurological: non-focal Deviation from normal: slightly confused Deviation from normal: both legs wrapped, gauze clean and dry Dx/Plan - Plan Plan: 1. Peripheral Vascular Disease -venous: no DVT, arterial dopplers: prominent atherosclerosis, CTA: multilevel calicification and stenoses involving superficial femoral, popliteral, and tibial arteries bilaterally -Consult CV surgery (Pancho): Right LE revascularization 07/31, L LE resvascularization on 08/05. Dr Deleon's note today stated to continue abx, he will continue to monitor, no plan for surgery at this point. -Dr. Andrews consulted anesthesia on 08/07 for better pain control. Patient was placed on fentanyl patch. Atarax prn for anxiety. Gabapentin 900mg TID. 2. Non healing ulcers likely 2/2 perfusion deficits Large ulcer on R LE, several small ulcers on L LE, ulcer on right heel -wound care consulted -see plan above 3. Urinary Retention On evening of 08/05, patient expressed that she was unable to urinate. Bladder scan revealed 813mL. Martinez catheter was placed and an output of 2350mL was documented. -UA: 3+ blood, 1+ bacteria, 250LE -UCx shows no growth -Continue martinez catheter to monitor output -Patient is already on meropenem -Martinez removed yesterday, placed on wick, bladder scan >900mL, martinez placed 4. Constipation 2/2 opioid use - milk of mag, miralax, sennokot - added lactulose bid and enema today - pt has decreased food intake recently 5. Concern for cellulitis and osteomyelitis of L foot involving 5th digit -WBC, procal, ESR normal, afebrile -b/l LE foot XR showed cellulitis and osteomyelitis involving 5th digit -Vanc discontinued, rocephin switched to meropenem on 08/02 -Blood culture negative at 48 hours -Consult Gen surg: did not recommend surgical intervention at this time due to lack of corresponding physical exam -Consult Darryl: agrees low concern for osteomyelitis. Believes Xray changes are due to fracture. Switched from rocephin to meropenem due to worsening ulcers and areas of necrosis. 6. Syncope 2/2 unknown etiology -3 week history of "blacking out" -brain CT neg in ED -orthostatics wnl -carotid dopplers revealed moderate stenosis of L ICA -ECHO: mitral annular calicification, mild mitral regurgitation, mild aortic stenosis, mild tricuspid regurgitation -was SR on cardiac monitoring for 4 days 7. Dysphagia 2/2 severe erosive esophagitis -History of dysphagia with solids and liquids -EGD (08/01): severe erosive esophagitis, some ulcerations -Protonix 40mg BID IV -GI Consult: follow up outpatient 2-3 weeks following discharge 8. NSAID induced gastritis -H. pylori culture negative -avoid anti-inflammatories 9. Hiatal Hernia -Consider outpatient Hermann fundoplication 10. Hypokalemia -K 4.1 -daily IV replacement, not PO due to patient's severe esophagitis 11. HTN -aware, continue home meds 12. DM 2 -questionable history, not on medication -A1c pending 13. Depression - aware, continue home meds Dispo: Discharge pending Dr. Deleon's evaluation of patient's vascularization and the possibility of amputation. Code: Full DVT ppx: Lovenox Diet: CC, Dominik Fluids: KVO Addendum - Attending - Attending Attestation Date/Time: 08/10/20 7310 I personally evaluated the patient and discussed the management with Dr. Cooper I agree with the History, Examination, Assessment and Plan documented above with any addition or exceptions noted below. Patient s/p vascular surgery with marked improvement pain adequately controlled. Patient with significant obstipation with opiods consider magnesium citrate if bowel regimen ineffective.
[2020-08-10] MEDS: Pantoprazole 40 MG VIAL IVP SCH ×2 (08:05→21:06)
[2020-08-10] MEDS: Senokot S 8.6-50 MG TAB PO SCH ×2 (08:06→21:06)
[2020-08-10] MEDS: Ezetimibe 10 MG TAB PO SCH (08:06)
[2020-08-10] MEDS: Milk Of Magnesia 30 ML UDCUP PO PRN (08:06)
[2020-08-10] MEDS: Gabapentin 300 MG CAP PO SCH ×3 (08:06→21:06)
[2020-08-10] MEDS: Clopidogrel Bisulfate 75 MG TAB PO SCH (08:07)
[2020-08-10] MEDS: Amlodipine 10 MG TAB PO SCH (08:07)
[2020-08-10] MEDS: Sucralfate 1 GM TAB PO SCH ×4 (08:07→21:07)
[2020-08-10] MEDS: FLUoxetine HCl 20 MG CAP PO SCH (08:07)
[2020-08-10] MEDS: Aspirin Chewable 81 MG TAB PO SCH (08:07)
[2020-08-10] MEDS: MEROPENEM 1 GM/50 ML 1 GM in Premix Bag 1 BAG IVPB SCH ×2 (08:09→21:06)
[2020-08-10] MEDS: Bupropion 150 MG SR TAB PO SCH ×2 (08:09→21:06)
[2020-08-10] MEDS: Nicotine 14 MG PATCH TD SCH (08:09)
[2020-08-10] MEDS: Cilostazol 100 MG TAB PO SCH ×2 (08:09→15:49)
[2020-08-10] MEDS: Enoxaparin Sodium 40 MG/0.4 ML SYRINGE SC SCH (08:09)
[2020-08-10] MEDS: Polyethylene Glycol 3350 17 GM Packet PO SCH (08:10)
[2020-08-10] MEDS: Losartan 25 MG TAB PO SCH (08:29)
[2020-08-10] MEDS: Hydrochlorothiazide 25 MG TAB PO SCH (08:29)
[2020-08-10 09:21] LABS: Hemoglobin A1c 5.7 % (4.0-6.0)
[2020-08-10] MEDS: Potassium Chloride 20 MEQ in Premix Bag 1 BAG IVPB SCH ×2 (09:49→21:06)
[2020-08-10] MEDS ORDERED: Fleet Enema 133 ML BOT FS SCH (10:30)
[2020-08-10] MEDS: traMADol HCl 50 MG TAB PO PRN ×2 (13:01→21:07)
[2020-08-10] MEDS: Atorvastatin Calcium 20 MG TAB PO SCH (21:06)
[2020-08-10] MEDS: Melatonin 3 MG TAB PO PRN (21:07)
[2020-08-10] MEDS: Ondansetron PF 4 MG/2 ML Vial IVP PRN (21:07)
--- NOTE | 2020-08-11 05:27 | PDOC.FM ---
- Subjective Subjective: Pt awake this morning, confused. Oriented to place only. Was tearful on exam stating she wants to go home. Pain controlled - Objective Vital Signs & Weight: Vital Signs (12 hours) Temp Pulse Resp BP Pulse Ox 08/10/20 20:00 98.8 F 110 H 18 107/66 92 L Weight Admit Weight 92.986 kg Weight 100.4 kg I&O: 08/09/20 08/10/20 08/11/20 06:59 06:59 06:59 Intake Total 1270 2010 950 Output Total 4925 2175 950 Balance -3655 -165 0 Result Diagrams: 08/11/20 08:15 08/11/20 08:15 Phys Exam - Physical Examination Constitutional: NAD HEENT: moist MMs, sclera anicteric Neck: supple Respiratory: no wheezing, clear to auscultation bilateral Cardiovascular: RRR 2/6 systolic murmur heard at upper sternal border Gastrointestinal: soft, non-tender, no distention Musculoskeletal: no edema, pulses present Neurological: non-focal, normal sensation Skin: cap refill <2 seconds Deviation from normal: bilat LE ulcers, purulent exudate noted on RLE, right foot wound dry -: tender to palpation, no erythema Dx/Plan - Plan Plan: #Peripheral Vascular Disease -venous: no DVT, arterial dopplers: prominent atherosclerosis, CTA: multilevel calicification and stenoses involving superficial femoral, popliteral, and tibial arteries bilaterally -Consult CV surgery (Pancho): Right LE revascularization 07/31, L LE resv ascularization on 08/05. Dr Deleon's note today stated to continue abx, he will continue to monitor, no plan for surgery at this point. -Dr. Andrews consulted anesthesia on 08/07 for better pain control. Patient was placed on fentanyl patch. Atarax prn for anxiety. Gabapentin 900mg TID- will change dosage due to AMS,see below #AMS -AOx1 today on exam, answers some questions appropriately and some not -pending CBC, BMP, UA -meds reviewed: will decrease gabapentin and fentanyl patch doses -continue to monitor, re-orient frequently, open blinds and turn on lights during day #Non healing ulcers likely 2/2 perfusion deficits -Large ulcer on R LE, several small ulcers on L LE, ulcer on right heel -wound care consulted -see plan above #Urinary Retention -Failed trial with pure wick, bladder scan >900mL, martinez replaced on 08/10 -UA: 3+ blood, 1+ bacteria, 250LE -UCx shows no growth -Patient is already on meropenem 4. Constipation 2/2 opioid use - added lactulose bid and enema yesterday, had 3 bm - milk of mag, miralax, sennokot -continue to monitor 5. Concern for cellulitis and osteomyelitis of L foot involving 5th digit -both gen surg and ID agree low concern for osteo, state xray shows chronic changes -Vanc discontinued, rocephin switched to meropenem on 08/02, per Dr. Darryl jj -Blood culture negative at 48 hours 6. Syncope 2/2 unknown etiology -3 week history of "blacking out" -brain CT neg in ED -orthostatics wnl -carotid dopplers revealed moderate stenosis of L ICA -ECHO: mitral annular calicification, mild mitral regurgitation, mild aortic stenosis, mild tricuspid regurgitation 7. Dysphagia 2/2 severe erosive esophagitis -History of dysphagia with solids and liquids -EGD (08/01): severe erosive esophagitis, some ulcerations -Protonix 40mg BID IV -GI Consult: follow up outpatient 2-3 weeks following discharge 8. NSAID induced gastritis -H. pylori culture negative -avoid anti-inflammatories 9. Hiatal Hernia -Consider outpatient Hermann fundoplication 10. Hypokalemia -K 4.1 -daily IV replacement, not PO due to patient's severe esophagitis 11. HTN -aware, continue home meds 12. Depression - aware, continue home meds Dispo: Discharge pending Dr. Deleon's evaluation of patient's vascularization and the possibility of amputation. Code: Full DVT ppx: Lovenox Diet: CC, Dominik Fluids: KVO Addendum - Attending - Attending Attestation Date/Time: 08/11/20 [id number] I personally evaluated the patient and discussed the management with Dr. Cooper I agree with the History, Examination, Assessment and Plan documented above with any addition or exceptions noted below. Patient with acute delirium will back of fentanyl and investigate other etiologies.
[2020-08-11] MEDS: Sucralfate 1 GM TAB PO SCH ×4 (08:03→20:22)
[2020-08-11] MEDS: Pantoprazole 40 MG VIAL IVP SCH ×2 (08:03→20:22)
[2020-08-11] MEDS: MEROPENEM 1 GM/50 ML 1 GM in Premix Bag 1 BAG IVPB SCH ×2 (08:03→20:24)
[2020-08-11] MEDS: Gabapentin 300 MG CAP PO SCH ×4 (08:03→20:22)
[2020-08-11] MEDS: Polyethylene Glycol 3350 17 GM Packet PO SCH (08:03)
[2020-08-11] MEDS: Enoxaparin Sodium 40 MG/0.4 ML SYRINGE SC SCH (08:03)
[2020-08-11] MEDS: Aspirin Chewable 81 MG TAB PO SCH (08:04)
[2020-08-11] MEDS: Clopidogrel Bisulfate 75 MG TAB PO SCH (08:04)
[2020-08-11] MEDS: Amlodipine 10 MG TAB PO SCH (08:04)
[2020-08-11] MEDS: Ezetimibe 10 MG TAB PO SCH (08:04)
[2020-08-11] MEDS: FLUoxetine HCl 20 MG CAP PO SCH (08:04)
[2020-08-11] MEDS: Nicotine 14 MG PATCH TD SCH (08:04)
[2020-08-11] MEDS: Senokot S 8.6-50 MG TAB PO SCH ×2 (08:04→20:23)
[2020-08-11] MEDS: Bupropion 150 MG SR TAB PO SCH ×2 (08:04→21:21)
[2020-08-11] MEDS: Cilostazol 100 MG TAB PO SCH ×2 (08:04→16:27)
[2020-08-11] MEDS: Losartan 25 MG TAB PO SCH (08:05)
[2020-08-11] MEDS: Hydrochlorothiazide 25 MG TAB PO SCH (08:05)
[2020-08-11 08:30] LABS: #Eosinphils 0.1 thou/uL (0.0-0.7); #Lymphocytes 1.1 thou/uL (1.20-3.40); #Monocytes 0.8 thou/uL (0.11-0.59); #Neutrophils 11.9 thou/uL (1.40-6.50); %Basophils 0.2 % (0.0-1.0); %Eosinophils 0.5 % (0.0-10.0); %Lymphocytes 7.8 % (21.0-51.0); %Monocytes 5.7 % (0.0-10.0); %Neutrophils 85.8 % (42.0-75.0); Hemoglobin 9.1 g/dL (12.0-16.0); Mean Corpuscular HGB CONC 33.7 g/dL (32.0-36.0); Mean Corpuscular Hemoglobin 31.8 pg (27.0-31.0); Mean Corpuscular Volume 94.4 fL (78.0-98.0); Mean Platelet Volume 6.1 fL (7.4-10.4); Platelet Count 295 thou/uL (130-400); RBC Distribution Width 12.3 % (11.5-14.5); Red Blood Cell (RBC) Count 2.85 mill/uL (4.20-5.40); White Blood Cell (WBC) Count 13.9 thou/uL (4.8-10.8)
[2020-08-11 08:50] LABS: Anion Gap 15 mmol/L (10-20); BUN (Urea Nitrogen) 15 mg/dL (9.8-20.1); Calc. Creatinine Clearance 86 mL/min (70-130); Calcium 8.9 mg/dL (7.8-10.44); Carbon Dioxide 27 mmol/L (23-31); Chloride 95 mmol/L (98-107); Estimated GFR-MDRD 51; Glucose 132 mg/dL (80-115); Potassium 3.9 mmol/L (3.5-5.1); Sodium 133 mmol/L (136-145)
[2020-08-11] MEDS: Potassium Chloride 20 MEQ in Premix Bag 1 BAG IVPB SCH ×2 (09:00→20:24)
[2020-08-11] MEDS ORDERED: Lactated Ringer's 1,000 ML IV SCH (10:00)
[2020-08-11] MEDS ORDERED: Morphine ER 15 MG TAB PO SCH (11:00)
[2020-08-11 11:14] LABS: Bilirubin Negative (Negative); Blood, Urine 1+ (Negative); Clarity Clear (Clear); Glucose, Urine (Dipstick) Normal (Negative); Ketone, Urine Trace mg/dL (Negative); Leukocyte Negative Leu/uL (Negative); Nitrite Negative (Negative); Protein, Urine (Dipstick) 70 mg/dL (Neg-Trace); Specific Gravity, Urine 1.017 (1.002-1.036); Squamous Epithelial 0-3 HPF (0-3); Urobilinogen Normal mg/dL (Less than 2); Yeast-Budding 1+ HPF (None Seen)
[2020-08-11 11:22] LABS: Bacteria/HPF Rare-Few HPF (None Seen)
[2020-08-11] MEDS ORDERED: Fluconazole 100 MG TAB PO SCH (13:00)
[2020-08-11] MEDS: Atorvastatin Calcium 20 MG TAB PO SCH (20:23)
[2020-08-11] MEDS: HYDROcodone/Acetaminophen 10/325 mg Tablet PO PRN (21:32)
--- NOTE | 2020-08-12 06:04 | PDOC.FM ---
- Subjective Subjective: Pt resting comfortably. Mental status slightly improved from yesterday, but continues to have periods of confusion. Bowel movements x3 yesterday. Continues to complain of pain in LE. No N/V, fever. - Objective Vital Signs & Weight: Vital Signs (12 hours) Temp Pulse Resp BP Pulse Ox 08/11/20 19:56 98.9 F 108 H 18 93/50 L 91 L Weight Admit Weight 92.986 kg Weight 100.4 kg I&O: 08/10/20 08/11/20 08/12/20 06:59 06:59 06:59 Intake Total 2009 1559 270 Output Total 2174 2024 9294 Balance -785 -217 -4340 Result Diagrams: 08/12/20 07:32 08/11/20 08:15 Phys Exam - Physical Examination Constitutional: NAD HEENT: sclera anicteric dry MM Neck: supple, full ROM Respiratory: no wheezing, clear to auscultation bilateral tachycardic, 2/6 systolic murmur heard throughout Gastrointestinal: soft, non-tender, no distention Musculoskeletal: pulses present edema of LE Neurological: non-focal, normal sensation Psychiatric: normal affect, A&O x 3 Deviation from normal: chronic wounds of b/l LE, wrapped, wound on R heel Dx/Plan - Plan Plan: 64yo female w/ non healing leg wounds, s/p revascularization #Peripheral Vascular Disease -Consult CV surgery (Pancho): Right LE revascularization 07/31, L LE resvascularization on 08/05. Recommends to continue abx -Anesthesia consult for pain: placed on fentanyl patch, Atarax, Gabapentin -Dr Andrews: karan, consider adding Vanc for MRSA coverage #AMS -etiology: medications vs delirium vs infection -evaluated for infection: WBC 14.5, up from 13.9. Afebrile today. Pending repeat BCx and UCx -yesterday given 1L bolus LR -decreased gabapentin and fentanyl patch doses -continue to monitor, re-orient frequently, open blinds and turn on lights during day #Non healing ulcers likely 2/2 perfusion deficits -Large ulcer on R LE, several small ulcers on L LE, ulcer on right heel -wound care consulted #Urinary Retention -Failed trial with pure wick, martinez replaced on 08/10 -UA on 08/11 showed 1+yeast, added 1 dose diflucan -repeat UCx pending -Patient is already on meropenem # Constipation 2/2 opioid use -milk of mag, miralax, sennokot, lactulose. BMx3 yesterday -continue to monitor #Concern for cellulitis and osteomyelitis of L foot involving 5th digit -both gen surg and ID agree low concern for osteo, state xray shows chronic changes -Vanc discontinued, rocephin switched to meropenem on 08/02, per Dr. Darryl jj -Blood culture negative at 48 hours #Syncope 2/2 unknown etiology -brain CT neg in ED -orthostatics wnl -carotid dopplers revealed moderate stenosis of L ICA -ECHO: mitral annular calicification, mild mitral regurgitation, mild aortic stenosis, mild tricuspid regurgitation #Dysphagia 2/2 severe erosive esophagitis -History of dysphagia with solids and liquids -EGD (08/01): severe erosive esophagitis, some ulcerations -Protonix 40mg BID IV -GI Consult: follow up outpatient 2-3 weeks following discharge #NSAID induced gastritis -H. pylori culture negative -avoid anti-inflammatories #Hiatal Hernia -Consider outpatient Hermann fundoplication #Hypokalemia -K 4.1 -daily IV replacement, not PO due to patient's severe esophagitis #HTN -aware, continue home meds #Depression - aware, continue home meds Code: Full DVT ppx: Lovenox Diet: CC, Dominik Fluids: KVO Dispo: Stable, assess mental status w/ regular reorientation, discharge pending Dr. Deleon's evaluation of patient's vascularization and the possibility of amputation.LOS > 48hrs
[2020-08-12 07:54] LABS: #Basophils 0.1 thou/uL (0.0-0.2); #Eosinphils 0.1 thou/uL (0.0-0.7); #Monocytes 0.8 thou/uL (0.11-0.59); #Neutrophils 12.5 thou/uL (1.40-6.50); %Basophils 0.3 % (0.0-1.0); %Eosinophils 0.7 % (0.0-10.0); %Lymphocytes 6.9 % (21.0-51.0); %Monocytes 5.8 % (0.0-10.0); %Neutrophils 86.3 % (42.0-75.0); Hemoglobin 9.3 g/dL (12.0-16.0); Mean Corpuscular HGB CONC 33.8 g/dL (32.0-36.0); Mean Corpuscular Hemoglobin 32.3 pg (27.0-31.0); Mean Corpuscular Volume 95.6 fL (78.0-98.0); Mean Platelet Volume 6.2 fL (7.4-10.4); Platelet Count 334 thou/uL (130-400); RBC Distribution Width 12.4 % (11.5-14.5); Red Blood Cell (RBC) Count 2.88 mill/uL (4.20-5.40); White Blood Cell (WBC) Count 14.5 thou/uL (4.8-10.8)
[2020-08-12] MEDS: Ondansetron PF 4 MG/2 ML Vial IVP PRN ×2 (08:17→21:01)
[2020-08-12] MEDS: Cilostazol 100 MG TAB PO SCH ×2 (08:19→17:08)
[2020-08-12] MEDS: Amlodipine 10 MG TAB PO SCH (08:19)
[2020-08-12] MEDS: Bupropion 150 MG SR TAB PO SCH ×2 (08:19→21:03)
[2020-08-12] MEDS: FLUoxetine HCl 20 MG CAP PO SCH (08:20)
[2020-08-12] MEDS: Losartan 25 MG TAB PO SCH (08:20)
[2020-08-12] MEDS: Clopidogrel Bisulfate 75 MG TAB PO SCH (08:20)
[2020-08-12] MEDS: Nicotine 14 MG PATCH TD SCH (08:20)
[2020-08-12] MEDS: Aspirin Chewable 81 MG TAB PO SCH (08:20)
[2020-08-12] MEDS: Hydrochlorothiazide 25 MG TAB PO SCH (08:20)
[2020-08-12] MEDS: Polyethylene Glycol 3350 17 GM Packet PO SCH (08:21)
[2020-08-12] MEDS: Senokot S 8.6-50 MG TAB PO SCH ×2 (08:21→21:02)
[2020-08-12] MEDS: Gabapentin 300 MG CAP PO SCH ×3 (08:21→21:03)
[2020-08-12] MEDS: MEROPENEM 1 GM/50 ML 1 GM in Premix Bag 1 BAG IVPB SCH (08:22)
[2020-08-12] MEDS: Ezetimibe 10 MG TAB PO SCH (08:22)
[2020-08-12] MEDS: Pantoprazole 40 MG VIAL IVP SCH ×2 (08:22→21:04)
[2020-08-12] MEDS: Enoxaparin Sodium 40 MG/0.4 ML SYRINGE SC SCH (08:23)
[2020-08-12] MEDS: Sucralfate 1 GM TAB PO SCH ×4 (08:23→21:03)
[2020-08-12] MEDS: Potassium Chloride 20 MEQ in Premix Bag 1 BAG IVPB SCH ×2 (08:46→21:01)
--- NOTE | 2020-08-12 17:23 | PRG ---
DATE OF SERVICE: 08/12/2020 SUBJECTIVE: The patient is a little bit confused. She is having a little bit of delusional thinking process. Pain has intensified in the right heel area. Moderate pain in the 4th toe, left foot. She has a Triplett catheter in place. Denies any shortness of breath or abdominal pain. She was constipated, had an enema. OBJECTIVE: VITAL SIGNS: She had a T-max up to 101 on August 10, blood pressure 102/69, heart rate 115, and O2 saturation 95. GENERAL: She is awake. Does not appear in distress, but she is upset with the progress, particularly with the pain in the right heel area. LUNGS: Clear. HEART: S1 and S2, regular rate. ABDOMEN: Soft. Not distended. GENITOURINARY: Triplett catheter in place. EXTREMITIES: The right heel still with areas of nonviability of the skin of the heel area, wrapping around. The frontal aspect of the forefoot looks relatively well. On the left side, the 4th toe appears ischemic. Remainder aspects are okay. LABORATORY DATA: White cell count is up to 14.5, hemoglobin 9.3, platelets 334. Creatinine 1.08, which is improved. Two sets of blood cultures from yesterday, thus far no growth. Urine culture, no growth thus far as well. Urinalysis from yesterday with 4 to 6 wbc's. She is not on any antimicrobials, so I think we are going to have to restart the antimicrobials at this point in time dropped or they were discontinued. We will restart broad-spectrum coverage with cefepime, Flagyl and Vancomycin. Job ID: [id number] [facility]
[2020-08-12] MEDS: Vancomycin HCl 1.25 GM in Sodium Chloride 0.9% 250 ML 250 ML IVPB SCH (21:02)
[2020-08-12] MEDS: Atorvastatin Calcium 20 MG TAB PO SCH (21:02)
[2020-08-12] MEDS: Cefepime 2 GM in Sodium Chloride 0.9% 100 ML IVPB SCH (21:03)
[2020-08-12] MEDS: metroNIDAZOLE 500 MG TAB PO SCH (22:00)
[2020-08-12] MEDS: Cyclobenzaprine 10 MG TAB PO PRN (23:30)
--- NOTE | 2020-08-13 06:04 | PDOC.FM ---
- Subjective Subjective: Pt resting comfortably. AO x 3 today but with some odd statements. Had event overnight, pulled out her PICC line. Pain is controlled. No N/V. - Objective Vital Signs & Weight: Vital Signs (12 hours) Temp Pulse Resp BP BP Pulse Ox 08/13/20 04:00 98.7 F 109 H 20 161/71 H 96 08/12/20 23:44 99 F 105 H 18 113/77 92 L 08/12/20 20:00 99.1 F 109 H 20 125/84 96 Weight Admit Weight 92.986 kg Weight 100.4 kg I&O: 08/11/20 08/12/20 08/13/20 06:59 06:59 06:59 Intake Total 1560 270 Output Total 20240 Balance -465 -1180 Result Diagrams: 08/13/20 07:04 08/11/20 08:15 Phys Exam - Physical Examination Constitutional: NAD HEENT: sclera anicteric dry MM Neck: supple, full ROM Respiratory: no wheezing, clear to auscultation bilateral holosystolic murmur heard throughout precordia Gastrointestinal: soft, non-tender, no distention Musculoskeletal: pulses present, edema present Neurological: normal sensation, moves all 4 limbs Psychiatric: normal affect Deviation from normal: b/l LE wrapped, chronic wounds on toes and R heel -: new bullae noted on R lat malleolus Dx/Plan - Plan Plan: 64yo female w/ non healing leg wounds, s/p revascularization #PAD s/p resvacularization on 07/31 and 08/05 -CV surg, Dr Deleon: continue abx -Anesthesia pain mgmt: placed on fentanyl patch, Atarax, Gabapentin -Dr Andrews: stopped merrem, added Vanc and Cefepime #AMS -etiology: medications vs delirium vs infection -Pending repeat BCx and UCx -decreased dose gabapentin and fentanyl patch -continue to monitor, re-orient frequently, open blinds and turn on lights during day #Non healing ulcers likely 2/2 perfusion deficits -Large ulcer on R LE, several small ulcers on L LE, ulcer on right heel -wound care consulted #persistent tachycardia -evaluated clinic records and no recorded hx of tachycardia -likely due to infection, but will order TSH and continue to monitor #Urinary Retention -Failed trial with pure wick, martinez replaced on 08/10 -can f/u with urology outpatient # Constipation 2/2 opioid use -milk of mag, miralax, sennokot, lactulose. -continue to monitor #Syncope 2/2 unknown etiology -brain CT neg in ED, orthostatics wnl -carotid dopplers: moderate stenosis of L ICA -ECHO: mitral annular calicification, mild MR, mild , mild TR #Dysphagia 2/2 severe erosive esophagitis -EGD (08/01): severe erosive esophagitis, some ulcerations -Protonix 40mg BID IV -GI Consult: follow up outpatient 2-3 weeks following discharge #NSAID induced gastritis -H. pylori culture negative -avoid NSAIDs #Hiatal Hernia -Consider outpatient Hermann fundoplication #Hypokalemia -K 3.9 -daily IV replacement, not PO due to patient's severe esophagitis #HTN -aware, continue home meds #Depression - aware, continue home meds Code: Full DVT ppx: Lovenox Diet: CC, Dominik Fluids: KVO Dispo: Stable, assess mental status w/ regular reorientation, discharge pending Dr. Deleon's evaluation of patient's vascularization and the possibility of amputation.LOS > 48hrs
[2020-08-13 07:18] LABS: #Eosinphils 0.1 thou/uL (0.0-0.7); #Lymphocytes 1.2 thou/uL (1.20-3.40); #Monocytes 0.6 thou/uL (0.11-0.59); #Neutrophils 7.9 thou/uL (1.40-6.50); %Basophils 0.4 % (0.0-1.0); %Eosinophils 0.9 % (0.0-10.0); %Lymphocytes 11.7 % (21.0-51.0); %Monocytes 6.4 % (0.0-10.0); %Neutrophils 80.5 % (42.0-75.0); Hemoglobin 8.4 g/dL (12.0-16.0); Mean Corpuscular HGB CONC 34.2 g/dL (32.0-36.0); Mean Corpuscular Hemoglobin 32.3 pg (27.0-31.0); Mean Corpuscular Volume 94.5 fL (78.0-98.0); Platelet Count 302 thou/uL (130-400); RBC Distribution Width 12.5 % (11.5-14.5); Red Blood Cell (RBC) Count 2.58 mill/uL (4.20-5.40); White Blood Cell (WBC) Count 9.8 thou/uL (4.8-10.8)
[2020-08-13] MEDS: Hydrochlorothiazide 25 MG TAB PO SCH (09:32)
[2020-08-13] MEDS: Amlodipine 10 MG TAB PO SCH (09:32)
[2020-08-13] MEDS: Losartan 25 MG TAB PO SCH (09:32)
[2020-08-13] MEDS: Polyethylene Glycol 3350 17 GM Packet PO SCH (09:33)
[2020-08-13] MEDS: Clopidogrel Bisulfate 75 MG TAB PO SCH (09:33)
[2020-08-13] MEDS: Aspirin Chewable 81 MG TAB PO SCH (09:33)
[2020-08-13] MEDS: Senokot S 8.6-50 MG TAB PO SCH ×2 (09:33→20:27)
[2020-08-13] MEDS: Ezetimibe 10 MG TAB PO SCH (09:33)
[2020-08-13] MEDS: Gabapentin 300 MG CAP PO SCH ×3 (09:34→20:55)
[2020-08-13] MEDS: Nicotine 14 MG PATCH TD SCH (09:34)
[2020-08-13] MEDS: FLUoxetine HCl 20 MG CAP PO SCH (09:34)
[2020-08-13] MEDS: Cefepime 2 GM in Sodium Chloride 0.9% 100 ML IVPB SCH ×2 (09:34→20:55)
[2020-08-13] MEDS: Cilostazol 100 MG TAB PO SCH ×2 (09:34→16:40)
[2020-08-13] MEDS: Enoxaparin Sodium 40 MG/0.4 ML SYRINGE SC SCH (09:34)
[2020-08-13] MEDS: Pantoprazole 40 MG VIAL IVP SCH ×2 (09:34→20:55)
[2020-08-13] MEDS: Sucralfate 1 GM TAB PO SCH ×4 (09:34→20:55)
[2020-08-13] MEDS: metroNIDAZOLE 500 MG TAB PO SCH ×3 (09:34→20:55)
[2020-08-13] MEDS: Potassium Chloride 20 MEQ in Premix Bag 1 BAG IVPB SCH ×2 (09:35→20:56)
[2020-08-13] MEDS: Bupropion 150 MG SR TAB PO SCH ×2 (09:35→20:55)
[2020-08-13] MEDS: Vancomycin HCl 1.25 GM in Sodium Chloride 0.9% 250 ML 250 ML IVPB SCH ×2 (10:03→21:09)
[2020-08-13] MEDS: traMADol HCl 50 MG TAB PO PRN ×2 (10:12→16:40)
[2020-08-13] MEDS: Cyclobenzaprine 10 MG TAB PO PRN (18:14)
[2020-08-13] MEDS: HYDROcodone/Acetaminophen 10/325 mg Tablet PO PRN ×2 (20:53→23:59)
[2020-08-13] MEDS: Melatonin 3 MG TAB PO PRN (20:54)
[2020-08-13] MEDS: Atorvastatin Calcium 20 MG TAB PO SCH (20:55)
[2020-08-14] MEDS: diphenhydrAMINE 25 MG CAP PO PRN ×2 (00:01→20:48)
--- NOTE | 2020-08-14 05:52 | PDOC.FM ---
- Subjective Subjective: Pt resting comfortably. AOx2. Pain controlled. No N/V, diarrhea - Objective Vital Signs & Weight: Vital Signs (12 hours) Temp Pulse Resp BP Pulse Ox 08/13/20 21:00 93 L 08/13/20 20:15 99.3 F 114 H 20 107/66 86 L 08/13/20 20:00 93 L Weight Admit Weight 92.986 kg Weight 100.4 kg I&O: 08/12/20 08/13/20 08/14/20 06:59 06:59 06:59 Intake Total 616 445 1936 Output Total 1450 1200 975 Balance -1180 -610 765 Result Diagrams: 08/13/20 07:04 08/11/20 08:15 Phys Exam - Physical Examination Constitutional: NAD HEENT: moist MMs, sclera anicteric Neck: supple, full ROM Respiratory: no wheezing, clear to auscultation bilateral tachycardic, holosystolic murmur Gastrointestinal: soft, non-tender, no distention Musculoskeletal: pulses present, edema present Neurological: normal sensation, moves all 4 limbs Psychiatric: normal affect, A&O x 3 Deviation from normal: b/l LE wounds, wrapped, gauze clean and dry, bullae on R lat malleolus Dx/Plan - Plan Plan: 64yo female w/ non healing leg wounds, s/p revascularization #PAD s/p resvacularization on 07/31 and 08/05 -CV surg, Dr Deleon: continue abx -Anesthesia pain mgmt: placed on fentanyl patch, Atarax, Gabapentin -Dr Andrews: Vanc, Cefepime, Flagyl #AMS -likely delirium 2/2 lengthy hospital stay -continue to monitor, re-orient frequently, open blinds and turn on lights during day #Non healing ulcers likely 2/2 perfusion deficits -wound care consulted #persistent tachycardia -likely due to infection, TSH normal, will continue to monitor #Urinary Retention -Failed trial with pure wick, martinez replaced on 08/10 -can f/u with urology outpatient # Constipation 2/2 opioid use -resolved, miralax daily -continue to monitor #Syncope -brain CT neg in ED, orthostatics wnl -carotid dopplers: moderate stenosis of L ICA -ECHO: mitral annular calicification, mild MR, mild , mild TR #Dysphagia 2/2 severe erosive esophagitis -EGD (08/01): severe erosive esophagitis, some ulcerations -Protonix 40mg BID IV -GI Consult: follow up outpatient 2-3 weeks following discharge #NSAID induced gastritis -H. pylori culture negative -avoid NSAIDs #Hiatal Hernia -Consider outpatient Hermann fundoplication #Hypokalemia -K 3.9 -daily IV replacement, not PO due to patient's severe esophagitis #HTN -aware, continue home meds #Depression - aware, continue home meds Code: Full DVT ppx: Lovenox Diet: CC, Dominik Fluids: KVO Dispo: Stable, assess mental status w/ regular reorientation, discharge pending Dr. Deleon's evaluation of patient's vascularization and the possibility of amput ation.LOS > 48hrs
[2020-08-14] MEDS ORDERED: Senokot S 8.6-50 MG TAB PO PRN (07:49)
[2020-08-14] MEDS: Cefepime 2 GM in Sodium Chloride 0.9% 100 ML IVPB SCH ×2 (08:40→20:50)
[2020-08-14] MEDS: Nicotine 14 MG PATCH TD SCH (08:40)
[2020-08-14] MEDS: Polyethylene Glycol 3350 17 GM Packet PO SCH (08:40)
[2020-08-14] MEDS: Potassium Chloride 20 MEQ in Premix Bag 1 BAG IVPB SCH ×2 (08:40→20:54)
[2020-08-14] MEDS: Pantoprazole 40 MG VIAL IVP SCH ×2 (08:40→20:52)
[2020-08-14] MEDS: metroNIDAZOLE 500 MG TAB PO SCH ×3 (08:41→20:50)
[2020-08-14] MEDS: Cilostazol 100 MG TAB PO SCH ×2 (08:41→15:46)
[2020-08-14] MEDS: Bupropion 150 MG SR TAB PO SCH ×2 (08:41→20:56)
[2020-08-14] MEDS: Ezetimibe 10 MG TAB PO SCH (08:41)
[2020-08-14] MEDS: Clopidogrel Bisulfate 75 MG TAB PO SCH (08:41)
[2020-08-14] MEDS: Enoxaparin Sodium 40 MG/0.4 ML SYRINGE SC SCH (08:41)
[2020-08-14] MEDS: Gabapentin 300 MG CAP PO SCH ×3 (08:41→20:50)
[2020-08-14] MEDS: Amlodipine 10 MG TAB PO SCH (08:42)
[2020-08-14] MEDS: Aspirin Chewable 81 MG TAB PO SCH (08:42)
[2020-08-14] MEDS: Sucralfate 1 GM TAB PO SCH ×4 (08:42→20:50)
[2020-08-14] MEDS: FLUoxetine HCl 20 MG CAP PO SCH (08:42)
[2020-08-14] MEDS: Hydrochlorothiazide 25 MG TAB PO SCH (08:43)
[2020-08-14] MEDS: Losartan 25 MG TAB PO SCH (08:43)
[2020-08-14 08:46] LABS: Vancomycin, Trough 19.1 ug/mL
[2020-08-14] MEDS: Vancomycin HCl 1.25 GM in Sodium Chloride 0.9% 250 ML 250 ML IVPB SCH ×2 (10:09→21:24)
[2020-08-14] MEDS: HYDROcodone/Acetaminophen 10/325 mg Tablet PO PRN ×2 (11:30→20:48)
--- NOTE | 2020-08-14 13:55 | SPC ---
Exam: Leftupper extremity ultrasound guided PICC line HISTORY: TPN, IV antibiotics Exposure:0.5 minutes, 5152 mGy/cm^2 FINDINGS: Lumen: Duallumen Trim length: 46 cm Distal tip:Superior vena cava Catheter flushes and aspirates without difficulty TECHNIQUE: Consent obtained to perform a left upper extremity PICC line with ultrasound guidance. Le ftarm was prepped and draped in a sterile fashion. 1% lidocaine, buffered with sodium bicarbonate was used for local anesthesia. Under ultrasound guidance, micropuncture needle was used to cannulate thebasilicvein. A 0.018 guidewire was advanced through the needle to level of the superior vena cava. Under fluoroscopy, the wire was further advanced into the inferior vena cava to document venous access. Wire was subsequently pulled back to thesuperior vena cava. Dual lumen flushes and aspirates without difficulty. Patient tolerated the procedure well. No immediate or postprocedure com plications IMPRESSION: Successfulleftupper surgery PICC line placement with ultrasound guidance
[2020-08-14] MEDS: Atorvastatin Calcium 20 MG TAB PO SCH (20:50)
[2020-08-14] MEDS: Cyclobenzaprine 10 MG TAB PO PRN (20:50)
[2020-08-14] MEDS: Morphine 2 MG/ML VIAL SLOW IVP PRN (21:09)
[2020-08-15] MEDS: HYDROcodone/Acetaminophen 10/325 mg Tablet PO PRN ×4 (01:26→23:37)
[2020-08-15] MEDS: Cyclobenzaprine 10 MG TAB PO PRN (05:28)
--- NOTE | 2020-08-15 06:24 | PDOC.FM ---
- Subjective Subjective: Pt resting comfortably. Oriented to person and place. Pain controlled. Tolerating diet. - Objective Vital Signs & Weight: Vital Signs (12 hours) Temp Pulse Resp BP Pulse Ox 08/14/20 20:00 97.4 F L 109 H 18 113/78 95 Weight Admit Weight 92.986 kg Weight 100.4 kg I&O: 08/13/20 08/14/20 08/15/20 06:59 06:59 06:59 Intake Total 420 1740 3390 Output Total 1200 1425 2500 Balance -780 315 890 Result Diagrams: 08/13/20 07:04 08/11/20 08:15 Phys Exam - Physical Examination Constitutional: NAD HEENT: moist MMs, sclera anicteric Neck: supple, full ROM Respiratory: no wheezing, clear to auscultation bilateral holosytolic murmur, tachycardic Gastrointestinal: soft, non-tender, no distention Musculoskeletal: pulses present, edema present Neurological: normal sensation, moves all 4 limbs Deviation from normal: A&O x2 Deviation from normal: LE wrapped Dx/Plan - Plan Plan: 64yo female w/ non healing leg wounds, s/p revascularization #PAD s/p resvacularization on 07/31 and 08/05 -CV surg, Dr Deleon: continue abx -pain: fentanyl patch, gabapentin, norco prn, morphine prn, tramadol prn, flexeril prn -Dr Andrews: Vanc, Cefepime, Flagyl. Discharge with 4 weeks of abx. PICC line placed on 08/14 -CM: pending placement #AMS -likely delirium 2/2 lengthy hospital stay -continue to monitor, re-orient frequently, open blinds and turn on lights durin g day #Non healing ulcers likely 2/2 perfusion deficits -wound care consulted #persistent tachycardia -likely due to infection, TSH normal, will continue to monitor #Urinary Retention -Failed trial with pure wick, martinez replaced on 08/10 -can f/u with urology outpatient # Constipation 2/2 opioid use -resolved, miralax daily -continue to monitor #Syncope -brain CT neg in ED, orthostatics wnl -carotid dopplers: moderate stenosis of L ICA -ECHO: mitral annular calicification, mild MR, mild , mild TR #Dysphagia 2/2 severe erosive esophagitis -EGD (08/01): severe erosive esophagitis, some ulcerations -Protonix 40mg BID IV -GI Consult: follow up outpatient 2-3 weeks following discharge #NSAID induced gastritis -H. pylori culture negative -avoid NSAIDs #Hiatal Hernia -Consider outpatient Hermann fundoplication #Hypokalemia -K 3.9 -daily IV replacement, not PO due to patient's severe esophagitis #HTN -aware, continue home meds #Depression - aware, continue home meds Code: Full DVT ppx: Lovenox Diet: CC, Dominik Fluids: KVO Dispo: Stable, assess mental status w/ regular reorientation, pending placement
[2020-08-15] MEDS: Gabapentin 300 MG CAP PO SCH ×3 (08:56→22:31)
[2020-08-15] MEDS: Clopidogrel Bisulfate 75 MG TAB PO SCH (08:57)
[2020-08-15] MEDS: Sucralfate 1 GM TAB PO SCH ×4 (08:57→22:32)
[2020-08-15] MEDS: FLUoxetine HCl 20 MG CAP PO SCH (08:57)
[2020-08-15] MEDS: Aspirin Chewable 81 MG TAB PO SCH (08:57)
[2020-08-15] MEDS: Cilostazol 100 MG TAB PO SCH ×2 (08:57→16:02)
[2020-08-15] MEDS: metroNIDAZOLE 500 MG TAB PO SCH ×3 (08:57→22:31)
[2020-08-15] MEDS: Polyethylene Glycol 3350 17 GM Packet PO SCH (08:58)
[2020-08-15] MEDS: Ezetimibe 10 MG TAB PO SCH (08:58)
[2020-08-15] MEDS: Enoxaparin Sodium 40 MG/0.4 ML SYRINGE SC SCH (08:58)
[2020-08-15] MEDS: Bupropion 150 MG SR TAB PO SCH ×2 (08:58→22:31)
[2020-08-15] MEDS: Amlodipine 10 MG TAB PO SCH (08:58)
[2020-08-15] MEDS: Nicotine 14 MG PATCH TD SCH (08:58)
[2020-08-15] MEDS: Pantoprazole 40 MG VIAL IVP SCH ×2 (08:59→22:31)
[2020-08-15] MEDS: Hydrochlorothiazide 25 MG TAB PO SCH (08:59)
[2020-08-15] MEDS: Potassium Chloride 20 MEQ in Premix Bag 1 BAG IVPB SCH ×2 (09:00→22:31)
[2020-08-15] MEDS: Cefepime 2 GM in Sodium Chloride 0.9% 100 ML IVPB SCH ×2 (09:00→22:33)
[2020-08-15] MEDS: Losartan 25 MG TAB PO SCH (09:00)
[2020-08-15] MEDS: Vancomycin HCl 1.25 GM in Sodium Chloride 0.9% 250 ML 250 ML IVPB SCH ×2 (09:21→22:32)
[2020-08-15] MEDS: Atorvastatin Calcium 20 MG TAB PO SCH (22:30)
--- NOTE | 2020-08-16 05:52 | PDOC.FM ---
- Subjective Subjective: Pt resting comfortably. Awake and more oriented today. A&O x 3. Pain controlled. Denies N/V, DIAZ, diarrhea. - Objective Vital Signs & Weight: Vital Signs (12 hours) Temp Pulse Resp BP Pulse Ox 08/16/20 04:19 98.3 F 99 18 110/77 100 08/15/20 23:56 98.0 F 104 H 20 111/79 92 L 08/15/20 20:00 95 08/15/20 19:37 98.9 F 101 H 20 97/68 95 08/15/20 18:08 100/68 Weight Admit Weight 92.986 kg Weight 100.4 kg I&O: 08/14/20 08/15/20 08/16/20 06:59 06:59 06:59 Intake Total 1740 3390 1250 Output Total 1425 2500 2150 Balance 315 890 -900 Result Diagrams: 08/13/20 07:04 08/11/20 08:15 Phys Exam - Physical Examination Constitutional: NAD HEENT: moist MMs, sclera anicteric Neck: supple, full ROM Respiratory: no wheezing, clear to auscultation bilateral Cardiovascular: RRR holosytolic murmur Gastrointestinal: soft, non-tender, no distention Musculoskeletal: pulses present, edema present Neurological: non-focal, moves all 4 limbs Psychiatric: normal affect, A&O x 3 Deviation from normal: b/l LE wrapped, clean and dry Dx/Plan - Plan Plan: 64yo female w/ non healing leg wounds, s/p revascularization #PAD s/p resvacularization on 07/31 and 08/05 -CV surg, Dr Deleon: continue abx -pain: fentanyl patch, gabapentin, norco prn, morphine prn, tramadol prn, flexeril prn -Dr Andrews:IV Invanz, daptomycin po -CM: pending infusion center and outpatient wound care -per CM, patient portion of cost to go to SNF was very high and not able to afford, Dr Andrews changed abx so that patient can come in for daily IV infusion. Pt's family willing to take care of her as outpatient, including outpatient wound care. -stable for discharge #AMS -likely delirium 2/2 lengthy hospital stay -continue to monitor, re-orient frequently, open blinds and turn on lights during day #Non healing ulcers likely 2/2 perfusion deficits -wound care consulted #persistent tachycardia -likely due to infection, TSH normal, will continue to monitor #Urinary Retention -Failed trial with pure wick, martinez replaced on 08/10 -can f/u with urology outpatient # Constipation 2/2 opioid use -resolved, miralax daily -continue to monitor #Syncope -brain CT neg in ED, orthostatics wnl -carotid dopplers: moderate stenosis of L ICA -ECHO: mitral annular calicification, mild MR, mild , mild TR #Dysphagia 2/2 severe erosive esophagitis -EGD (08/01): severe erosive esophagitis, some ulcerations -Protonix 40mg BID IV -GI Consult: follow up outpatient 2-3 weeks following discharge #NSAID induced gastritis -H. pylori culture negative -avoid NSAIDs #Hiatal Hernia -Consider outpatient Hermann fundoplication #Hypokalemia -K 3.9 -daily IV replacement, not PO due to patient's severe esophagitis #HTN -aware, continue home meds #Depression - aware, continue home meds Code: Full DVT ppx: Lovenox Diet: CC, Dominik Fluids: KVO Dispo: Stable, assess mental status w/ regular reorientation, pending outpatient therapies as above, discharge home.
[2020-08-16] MEDS: Cilostazol 100 MG TAB PO SCH ×2 (08:22→16:47)
[2020-08-16] MEDS: Ezetimibe 10 MG TAB PO SCH (08:22)
[2020-08-16] MEDS: Hydrochlorothiazide 25 MG TAB PO SCH (08:22)
[2020-08-16] MEDS: metroNIDAZOLE 500 MG TAB PO SCH ×3 (08:22→20:37)
[2020-08-16] MEDS: Losartan 25 MG TAB PO SCH (08:22)
[2020-08-16] MEDS: Gabapentin 300 MG CAP PO SCH ×3 (08:22→20:37)
[2020-08-16] MEDS: Enoxaparin Sodium 40 MG/0.4 ML SYRINGE SC SCH (08:23)
[2020-08-16] MEDS: FLUoxetine HCl 20 MG CAP PO SCH (08:23)
[2020-08-16] MEDS: Polyethylene Glycol 3350 17 GM Packet PO SCH (08:23)
[2020-08-16] MEDS: Aspirin Chewable 81 MG TAB PO SCH (08:23)
[2020-08-16] MEDS: Nicotine 14 MG PATCH TD SCH (08:23)
[2020-08-16] MEDS: Amlodipine 10 MG TAB PO SCH (08:23)
[2020-08-16] MEDS: Sucralfate 1 GM TAB PO SCH ×4 (08:23→20:37)
[2020-08-16] MEDS: Pantoprazole 40 MG VIAL IVP SCH ×2 (08:23→20:37)
[2020-08-16] MEDS: Clopidogrel Bisulfate 75 MG TAB PO SCH (08:24)
[2020-08-16] MEDS: Potassium Chloride 20 MEQ in Premix Bag 1 BAG IVPB SCH ×2 (09:56→20:36)
[2020-08-16] MEDS: Bupropion 150 MG SR TAB PO SCH ×2 (09:56→20:37)
[2020-08-16] MEDS: HYDROcodone/Acetaminophen 10/325 mg Tablet PO PRN ×3 (10:06→18:19)
[2020-08-16] MEDS: Vancomycin HCl 1.25 GM in Sodium Chloride 0.9% 250 ML 250 ML IVPB SCH ×2 (10:07→20:35)
[2020-08-16] MEDS: Cyclobenzaprine 10 MG TAB PO PRN (11:47)
[2020-08-16] MEDS: Cefepime 2 GM in Sodium Chloride 0.9% 100 ML IVPB SCH ×2 (11:48→22:42)
--- NOTE | 2020-08-16 15:10 | PRG ---
DATE OF SERVICE: 08/16/2020 SUBJECTIVE: Ольга Sandoval is about the same with the main limiting factor being the pain that she is experiencing in both feet when she tries to stand up and bear weight. This makes it impossible for her to transfer. Does not have any respiratory symptoms. No chest pain or abdominal pain. She is voiding with an indwelling Triplett catheter. OBJECTIVE: VITAL SIGNS: Normal temperature and BP 104/72, heart rate 104, respiratory rate 16, O2 saturation 100. SKIN: Shows the toes with good perfusion with a few areas of necrosis, which appear to be superficial at the tips of the 4th left toe and tip of the 2nd right toe and also the main area of ischemia at the right heel area as noted previously with one area of necrotic eschar round shaped about 1.5 cm at the right heel. GENERAL: She is awake, alert, oriented. HEENT: Ocular movements conjugate. LUNGS: Symmetric, clear breath sounds. HEART: S1, S2, regular rate. ABDOMEN: Soft, not distended or tender. She has a Triplett catheter in place and a PICC line in left upper extremity. LABORATORY DATA: White cell count is down to 9.8, hemoglobin 8.4, platelets 302. Sodium 133, creatinine 1.08. Blood cultures negative final result. ASSESSMENT AND DISCUSSION: Type 2 diabetes, chronic smoking, peripheral vascular disease and ischemia of lower extremities with pain, status post revascularization by Dr. Deleon, right and left side, now on broad-spectrum coverage with some improvement in inflammatory process but still marked pain. She does have good cap refill. There are areas of marginal viability at the right heel area, but I think it is worthwhile to continue with broad-spectrum antimicrobial coverage, hoping that there is going to be resolution of the pain and allow her to transfer and then be eligible for continuation of wound care, hoping for healing. Otherwise, she will need amputation, particularly on the right side at the BKA level at least. It looks like she is going to be transferred to a skilled unit to continue antimicrobial therapy. She is not eligible for outpatient management because of the pain and inability to transfer at this point in time. Job ID: [id number]
[2020-08-16] MEDS: Calcium Carbonate 500 MG ChewTAB PO PRN (18:13)
[2020-08-16] MEDS: Atorvastatin Calcium 20 MG TAB PO SCH (20:37)
[2020-08-16] MEDS: Ondansetron PF 4 MG/2 ML Vial IVP PRN (21:12)
[2020-08-16] MEDS: Morphine 2 MG/ML VIAL SLOW IVP PRN (21:19)
[2020-08-16] MEDS: Melatonin 3 MG TAB PO PRN (23:44)
[2020-08-17] MEDS: HYDROcodone/Acetaminophen 10/325 mg Tablet PO PRN ×2 (00:47→09:48)
[2020-08-17] MEDS: Morphine 2 MG/ML VIAL SLOW IVP PRN (04:22)
[2020-08-17 05:54] LABS: #Eosinphils 0.2 thou/uL (0.0-0.7); #Lymphocytes 1.2 thou/uL (1.20-3.40); #Monocytes 0.3 thou/uL (0.11-0.59); #Neutrophils 5.7 thou/uL (1.40-6.50); %Basophils 0.6 % (0.0-1.0); %Eosinophils 2.5 % (0.0-10.0); %Lymphocytes 16.2 % (21.0-51.0); %Monocytes 4.4 % (0.0-10.0); %Neutrophils 76.4 % (42.0-75.0); Hemoglobin 8.5 g/dL (12.0-16.0); Mean Corpuscular HGB CONC 34.5 g/dL (32.0-36.0); Mean Corpuscular Hemoglobin 32.7 pg (27.0-31.0); Mean Corpuscular Volume 94.9 fL (78.0-98.0); Mean Platelet Volume 7.1 fL (7.4-10.4); Platelet Count 247 thou/uL (130-400); Red Blood Cell (RBC) Count 2.59 mill/uL (4.20-5.40); White Blood Cell (WBC) Count 7.4 thou/uL (4.8-10.8)
[2020-08-17 06:17] LABS: ALT (SGPT) 17 U/L (8-55); AST (SGOT) 22 U/L (5-34); Albumin 2.7 g/dL (3.4-4.8); Alkaline Phosphatase 65 U/L (40-110); Anion Gap 13 mmol/L (10-20); BUN (Urea Nitrogen) 17 mg/dL (9.8-20.1); Bilirubin, Total 0.5 mg/dL (0.2-1.2); Calc. Creatinine Clearance 97 mL/min (70-130); Calcium 8.5 mg/dL (7.8-10.44); Carbon Dioxide 21 mmol/L (23-31); Chloride 103 mmol/L (98-107); Estimated GFR-MDRD 60; Glucose 107 mg/dL (80-115); Potassium 3.7 mmol/L (3.5-5.1); Protein, Total 5.7 g/dL (6.0-8.3); Sodium 133 mmol/L (136-145)
--- NOTE | 2020-08-17 06:17 | PDOC.FM ---
- Subjective Subjective: Pt is a 64 yo F with a PMH of DM2, anemia, CKD, depression, HTN, neuropathy who presented with cc of syncope and non healing b/l LE wounds 2/2 severe PAD. Syncopal workup negative. She is s/p R and L LE revascularization. She is complaining of burning pain of her b/l LE, especially on the right side. She states she has been not asking for pain medications because she thought she would not be able to leave if she needed pain medications. She said she is confused about what all has happened during her hospitalization, but she is A&Ox3. Denies DIAZ, CP, SOB, abdominal pain. Martinez in place - Objective MAR Reviewed: Yes Vital Signs & Weight: Vital Signs (12 hours) Temp Pulse Resp BP Pulse Ox 08/17/20 02:59 122/73 08/17/20 00:47 130/72 08/16/20 20:00 98.4 F 98 16 107/71 100 Weight Admit Weight 92.986 kg Weight 100.4 kg I&O: 08/15/20 08/16/20 08/17/20 06:59 06:59 06:59 Intake Total 3390 1820 2550 Output Total 2500 4200 3450 Balance 720 -4180 900 Result Diagrams: 08/17/20 05:38 08/17/20 05:38 Phys Exam - Physical Examination Constitutional: NAD HEENT: moist MMs, sclera anicteric Neck: full ROM Respiratory: no wheezing, no rales Cardiovascular: RRR, no significant murmur Gastrointestinal: soft, non-tender Musculoskeletal: pulses present Neurological: moves all 4 limbs Psychiatric: normal affect, A&O x 3 Deviation from normal: -: b/l LE wrapped. No extending redness. R dorsal foot w discoloration/blister Dx/Plan - Plan Plan: 64yo female w/ non healing leg wounds, s/p revascularization #PAD s/p resvacularization on 07/31 and 08/05 -CV surgDr Deleon: continue abx -pain: fentanyl patch, gabapentin, norco prn, morphine prn, flexeril prn. Consider scheduling more than Fentanyl patch if pain continues to be unbearable -Dr Andrews:IV Vanc, cefepime, Flagyl PICC line in place for Abx -CM: pending [facility] infusion center and outpatient wound care (already in place) -per CM, patient portion of cost to go to SNF was very high and not able to afford, Dr Andrews changed abx so that patient can come in for daily IV infusion. Pt's family was willing to take care of her as outpatient, including outpatient wound care but decided it was too much. The family is revisiting the option of [facility] swing bed or [facility]. -stable for discharge #AMS -Waxes and wanes likely delirium 2/2 lengthy hospital stay -continue to monitor, re-orient frequently, open blinds and turn on lights during day #Non healing ulcers likely 2/2 perfusion deficits -wound care consulted -outpatient wound care set up #persistent tachycardia -likely due to infection, TSH normal, will continue to monitor #Urinary Retention -Failed trial with pure wick, martinez replaced on 08/10 -can f/u with urology outpatient # Constipation 2/2 opioid use -resolved, miralax daily -continue to monitor #Syncope -brain CT neg in ED, orthostatics wnl -carotid dopplers: moderate stenosis of L ICA -ECHO: mitral annular calicification, mild MR, mild , mild TR #Dysphagia 2/2 severe erosive esophagitis -EGD (08/01): severe erosive esophagitis, some ulcerations -Protonix 40mg BID IV -GI Consult: follow up outpatient 2-3 weeks following discharge #NSAID induced gastritis -H. pylori culture negative -avoid NSAIDs #Hiatal Hernia -Consider outpatient Hermann fundoplication #Hypokalemia -daily IV replacement, not PO due to patient's severe esophagitis #HTN -aware, continue home meds #Depression - aware, continue home meds # Anemia of Chronic disease -aware Code: Full DVT ppx: Lovenox Diet: CC, Dominik Fluids: KVO Dispo: Stable, assess mental status w/ regular reorientation, pending placement
[2020-08-17 09:21] LABS: Iron 31 ug/dL (50-170); Iron Binding Capacity, Total 153 mcg/dL (265-497)
[2020-08-17] MEDS: Nicotine 14 MG PATCH TD SCH (09:44)
[2020-08-17] MEDS: Aspirin Chewable 81 MG TAB PO SCH (09:46)
[2020-08-17] MEDS: Ezetimibe 10 MG TAB PO SCH (09:46)
[2020-08-17] MEDS: Hydrochlorothiazide 25 MG TAB PO SCH (09:47)
[2020-08-17] MEDS: Losartan 25 MG TAB PO SCH (09:48)
[2020-08-17] MEDS: Amlodipine 10 MG TAB PO SCH (09:48)
[2020-08-17] MEDS: metroNIDAZOLE 500 MG TAB PO SCH ×3 (09:48→20:30)
[2020-08-17] MEDS: Clopidogrel Bisulfate 75 MG TAB PO SCH (09:49)
[2020-08-17] MEDS: Bupropion 150 MG SR TAB PO SCH ×2 (09:49→20:30)
[2020-08-17] MEDS: Cilostazol 100 MG TAB PO SCH ×2 (09:49→16:15)
[2020-08-17] MEDS: FLUoxetine HCl 20 MG CAP PO SCH (09:50)
[2020-08-17] MEDS: Sucralfate 1 GM TAB PO SCH ×4 (09:50→20:31)
[2020-08-17] MEDS: Gabapentin 300 MG CAP PO SCH ×3 (09:50→20:30)
[2020-08-17] MEDS: Polyethylene Glycol 3350 17 GM Packet PO SCH (09:51)
[2020-08-17] MEDS: Enoxaparin Sodium 40 MG/0.4 ML SYRINGE SC SCH (09:51)
[2020-08-17] MEDS: Pantoprazole 40 MG VIAL IVP SCH ×2 (09:51→22:00)
[2020-08-17] MEDS: Ondansetron ODT 4 MG TAB PO PRN (09:56)
[2020-08-17] MEDS: Vancomycin HCl 1.25 GM in Sodium Chloride 0.9% 250 ML 250 ML IVPB SCH ×2 (10:38→20:31)
[2020-08-17] MEDS: Potassium Chloride 20 MEQ in Premix Bag 1 BAG IVPB SCH ×2 (10:38→20:32)
[2020-08-17] MEDS: Cefepime 2 GM in Sodium Chloride 0.9% 100 ML IVPB SCH ×2 (11:30→23:14)
[2020-08-17] MEDS: Cyclobenzaprine 10 MG TAB PO PRN ×2 (15:28→23:14)
[2020-08-17] MEDS: Melatonin 3 MG TAB PO PRN (20:29)
[2020-08-17] MEDS: Atorvastatin Calcium 20 MG TAB PO SCH (20:30)
[2020-08-17] MEDS: Ondansetron PF 4 MG/2 ML Vial IVP PRN (20:53)
--- NOTE | 2020-08-18 06:20 | PDOC.FM ---
- Subjective Subjective: Patient sleeping comfortably in bed this morning. When I woke the patient up, she said she is still having pain in her legs. Otherwise, she is doing fine. Tolerating PO, denies DIAZ, SOB, CP, abdominal pain. - Objective MAR Reviewed: Yes Vital Signs & Weight: Vital Signs (12 hours) Temp Pulse Resp BP Pulse Ox 08/17/20 20:30 99.4 F 108 H 16 116/79 96 Weight Admit Weight 92.986 kg Weight 100.4 kg I&O: 08/16/20 08/17/20 08/18/20 06:59 06:59 06:59 Intake Total 1820 2550 2250 Output Total 4200 6800 5650 Balance -2496 -475 -1408 Result Diagrams: 08/17/20 05:38 08/17/20 05:38 Phys Exam - Physical Examination Constitutional: NAD HEENT: moist MMs Neck: supple, full ROM Respiratory: no wheezing, clear to auscultation bilateral Cardiovascular: RRR murmur appreciated on auscultation Gastrointestinal: soft, non-tender Musculoskeletal: no edema, pulses present Neurological: moves all 4 limbs Psychiatric: normal affect, A&O x 3 Deviation from normal: purple bruise on right side of lower abdomen -: b/l LE wrapped, no erythema surrounding wrap Dx/Plan - Plan Plan: 64yo female w/ non healing leg wounds, s/p revascularization #PAD s/p resvacularization on 07/31 and 08/05 -CV surg, Dr Deleon: continue abx -pain: fentanyl patch, gabapentin, norco prn, morphine prn, flexeril prn. Consider scheduling more than Fentanyl patch if pain continues to be unbearable -Dr Andrews:IV Vanc, cefepime, Flagyl PICC line in place for Abx -CM: pending infusion center and outpatient wound care (already in place) -per CM, patient portion of cost to go to SNF was very high and not able to afford, Dr Andrews changed abx so that patient can come in for daily IV infusion. Pt's family was willing to take care of her as outpatient, including outpatient wound care but decided it was too much. The family is revisiting the option of [facility] swing bed or [facility]. -stable for discharge, waiting on placement #AMS -Waxes and wanes likely delirium 2/2 lengthy hospital stay -continue to monitor, re-orient frequently, open blinds and turn on lights during day #Non healing ulcers likely 2/2 perfusion deficits -wound care consulted -outpatient wound care set up #persistent tachycardia -likely due to infection, TSH normal, will continue to monitor #Urinary Retention -Failed trial with pure wick, martinez replaced on 08/10 -can f/u with urology outpatient # Constipation 2/2 opioid use -resolved, miralax daily -continue to monitor #Syncope -brain CT neg in ED, orthostatics wnl -carotid dopplers: moderate stenosis of L ICA -ECHO: mitral annular calicification, mild MR, mild , mild TR #Dysphagia 2/2 severe erosive esophagitis -EGD (08/01): severe erosive esophagitis, some ulcerations -Protonix 40mg BID IV -GI Consult: follow up outpatient 2-3 weeks following discharge #NSAID induced gastritis -H. pylori culture negative -avoid NSAIDs #Hiatal Hernia -Consider outpatient Hermann fundoplication #Hypokalemia -daily IV replacement, not PO due to patient's severe esophagitis #HTN -aware, continue home meds #Depression - aware, continue home meds # Anemia of Chronic disease -aware Code: Full DVT ppx: Lovenox Diet: CC, Dominik Fluids: KVO Dispo: Stable, assess mental status w/ regular reorientation, pending placement
[2020-08-18] MEDS: Aspirin Chewable 81 MG TAB PO SCH (08:18)
[2020-08-18] MEDS: Cyclobenzaprine 10 MG TAB PO PRN ×2 (08:18→20:08)
[2020-08-18] MEDS: Cilostazol 100 MG TAB PO SCH ×2 (08:19→15:46)
[2020-08-18] MEDS: Hydrochlorothiazide 25 MG TAB PO SCH (08:19)
[2020-08-18] MEDS: Bupropion 150 MG SR TAB PO SCH ×2 (08:19→20:05)
[2020-08-18] MEDS: Clopidogrel Bisulfate 75 MG TAB PO SCH (08:20)
[2020-08-18] MEDS: Losartan 25 MG TAB PO SCH (08:20)
[2020-08-18] MEDS: Amlodipine 10 MG TAB PO SCH (08:20)
[2020-08-18] MEDS: Gabapentin 300 MG CAP PO SCH ×3 (08:20→20:06)
[2020-08-18] MEDS: FLUoxetine HCl 20 MG CAP PO SCH (08:20)
[2020-08-18] MEDS: Ezetimibe 10 MG TAB PO SCH (08:20)
[2020-08-18] MEDS: metroNIDAZOLE 500 MG TAB PO SCH ×3 (08:20→20:06)
[2020-08-18] MEDS: Sucralfate 1 GM TAB PO SCH ×4 (08:20→20:06)
[2020-08-18] MEDS: Nicotine 14 MG PATCH TD SCH (08:21)
[2020-08-18] MEDS: Pantoprazole 40 MG VIAL IVP SCH ×2 (08:21→20:06)
[2020-08-18] MEDS: Polyethylene Glycol 3350 17 GM Packet PO SCH (08:21)
[2020-08-18] MEDS: Enoxaparin Sodium 40 MG/0.4 ML SYRINGE SC SCH (08:21)
[2020-08-18] MEDS: diphenhydrAMINE 25 MG CAP PO PRN ×2 (08:37→20:23)
[2020-08-18] MEDS: Potassium Chloride 20 MEQ in Premix Bag 1 BAG IVPB SCH ×2 (09:42→20:23)
[2020-08-18] MEDS: Vancomycin HCl 1.25 GM in Sodium Chloride 0.9% 250 ML 250 ML IVPB SCH ×2 (09:42→20:07)
[2020-08-18] MEDS: Morphine 2 MG/ML VIAL SLOW IVP PRN ×2 (10:33→17:29)
[2020-08-18] MEDS: Cefepime 2 GM in Sodium Chloride 0.9% 100 ML IVPB SCH ×2 (10:33→23:07)
[2020-08-18] MEDS: HYDROcodone/Acetaminophen 10/325 mg Tablet PO PRN ×2 (15:47→20:09)
[2020-08-18] MEDS: Atorvastatin Calcium 20 MG TAB PO SCH (20:05)
[2020-08-18] MEDS: Melatonin 3 MG TAB PO PRN (20:08)
[2020-08-19] MEDS: HYDROcodone/Acetaminophen 10/325 mg Tablet PO PRN ×3 (01:29→17:33)
[2020-08-19] MEDS: diphenhydrAMINE 25 MG CAP PO PRN (01:32)
--- NOTE | 2020-08-19 05:44 | PDOC.FM ---
- Subjective Subjective: Pt doing well this morning, resting comfortably. AO x2. Pain controlled. Tolerating diet. - Objective Vital Signs & Weight: Vital Signs (12 hours) Temp Pulse Resp BP BP Pulse Ox 08/19/20 04:50 98.1 F 101 H 19 120/77 08/19/20 00:00 97.9 F 104 H 20 90/63 95 08/18/20 20:05 100 08/18/20 19:57 97.9 F 100 20 91/58 L 100 Weight Admit Weight 92.986 kg Weight 100.4 kg I&O: 08/17/20 08/18/20 08/19/20 06:59 06:59 06:59 Intake Total 2550 2250 900 Output Total 3450 5650 Balance -900 -3400 900 Result Diagrams: 08/17/20 05:38 08/17/20 05:38 Phys Exam - Physical Examination Constitutional: NAD HEENT: moist MMs, sclera anicteric Neck: supple, full ROM Respiratory: no wheezing, clear to auscultation bilateral Cardiovascular: RRR holosytolic murmur Gastrointestinal: soft, non-tender, no distention Musculoskeletal: no edema, pulses present Neurological: non-focal, moves all 4 limbs Psychiatric: normal affect Deviation from normal: AOx2 Skin: cap refill <2 seconds Deviation from normal: b/l LE wrapped Dx/Plan - Plan Plan: 64yo female w/ non healing leg wounds, s/p revascularization #PAD s/p resvacularization on 07/31 and 08/05 -CV surg, Dr Deleon: continue abx -pain: fentanyl patch, gabapentin, norco prn, morphine prn, flexeril prn. -Dr Andrews:IV Vanc, cefepime, Flagyl for [address] line in place for Abx. Outpatient plan: weekly vanc trough, CBC, CMP, CRP -stable for discharge, waiting on placement/patient's family #AMS -Waxes and wanes likely delirium 2/2 lengthy hospital stay -continue to monitor, re-orient frequently, open blinds and turn on lights during day #Non healing ulcers likely 2/2 perfusion deficits -wound care consulted -outpatient wound care set up #persistent tachycardia -likely due to infection, TSH normal, will continue to monitor #Urinary Retention -Failed trial with pure wick, martinez replaced on 08/10 -can f/u with urology outpatient # Constipation 2/2 opioid use -resolved, miralax daily -continue to monitor #Syncope -brain CT neg in ED, orthostatics wnl -carotid dopplers: moderate stenosis of L ICA -ECHO: mitral annular calicification, mild MR, mild , mild TR #Dysphagia 2/2 severe erosive esophagitis -EGD (08/01): severe erosive esophagitis, some ulcerations -Protonix 40mg BID IV, consider switching to po -GI Consult: follow up outpatient 2-3 weeks following discharge #NSAID induced gastritis -H. pylori culture negative -avoid NSAIDs #Hiatal Hernia -Consider outpatient Hermann fundoplication #Hypokalemia -daily IV replacement, not PO due to patient's severe esophagitis #HTN -aware, continue home meds #Depression - aware, continue home meds # Anemia of Chronic disease -MCV 94, Iron 31, TIBC 153, Ferritin 591, %sat 20 Code: Full DVT ppx: Lovenox Diet: CC, Dominik Fluids: KVO Dispo: Stable, assess mental status w/ regular reorientation, pending placement Addendum - Attending - Attending Attestation Date/Time: 08/19/20 1126 I personally evaluated the patient and discussed the management with Dr. Cooper. I agree with the History, Examination, Assessment and Plan documented above with any addition or exceptions noted below.
[2020-08-19 07:20] VITALS: TEMP 98.4
[2020-08-19] MEDS: Bupropion 150 MG SR TAB PO SCH (08:33)
[2020-08-19] MEDS: Gabapentin 300 MG CAP PO SCH ×2 (08:33→15:30)
[2020-08-19] MEDS: Losartan 25 MG TAB PO SCH (08:34)
[2020-08-19] MEDS: FLUoxetine HCl 20 MG CAP PO SCH (08:34)
[2020-08-19] MEDS: metroNIDAZOLE 500 MG TAB PO SCH ×2 (08:34→15:30)
[2020-08-19] MEDS: Hydrochlorothiazide 25 MG TAB PO SCH (08:34)
[2020-08-19] MEDS: Sucralfate 1 GM TAB PO SCH ×3 (08:34→17:35)
[2020-08-19] MEDS: Ezetimibe 10 MG TAB PO SCH (08:35)
[2020-08-19] MEDS: Cilostazol 100 MG TAB PO SCH ×2 (08:35→17:34)
[2020-08-19] MEDS: Aspirin Chewable 81 MG TAB PO SCH (08:35)
[2020-08-19] MEDS: Clopidogrel Bisulfate 75 MG TAB PO SCH (08:35)
[2020-08-19] MEDS: Amlodipine 10 MG TAB PO SCH (08:35)
[2020-08-19] MEDS: Enoxaparin Sodium 40 MG/0.4 ML SYRINGE SC SCH (08:44)
[2020-08-19] MEDS: Pantoprazole 40 MG VIAL IVP SCH (08:53)
[2020-08-19] MEDS: Polyethylene Glycol 3350 17 GM Packet PO SCH (08:53)
[2020-08-19] MEDS: Vancomycin HCl 1.25 GM in Sodium Chloride 0.9% 250 ML 250 ML IVPB SCH (08:54)
[2020-08-19] MEDS: Potassium Chloride 20 MEQ in Premix Bag 1 BAG IVPB SCH (08:54)
[2020-08-19] MEDS: Nicotine 14 MG PATCH TD SCH (09:08)
[2020-08-19 09:11] VITALS: BP 127/72
[2020-08-19] MEDS: Morphine 2 MG/ML VIAL SLOW IVP PRN ×2 (09:14→15:23)
[2020-08-19] MEDS: Cefepime 2 GM in Sodium Chloride 0.9% 100 ML IVPB SCH (10:40)
[2020-08-19] MEDS: Cyclobenzaprine 10 MG TAB PO PRN (12:12)
--- NOTE | 2020-08-21 13:32 | DIS ---
DATE OF ADMISSION: 07/29/2020 DATE OF DISCHARGE: 08/19/2020 RESIDENT: Nina Cooper MD, PGY-1 ADMITTING ATTENDING: Kwesi Linda MD. DISCHARGE ATTENDING: Ghanshyam De Guzman MD. CONSULTS: 1. Anesthesiology. 2. Cardiovascular Surgery. 3. Gastroenterology. 4. General Surgery. 5. Infectious Disease. 6. Case Management. 7. OT and PT. 8. Wound Care. PROCEDURES: Brain CT on 07/29/2020, no acute intracranial process. Chest x-ray on07/29/2020, no acute cardiopulmonary process. Foot x-ray on 07/29/2020, impression,cellulitis and osteomyelitis involving 5th digit of left foot. Foot x-ray on07/29/2020, impression, no evidence of osteomyelitis of right foot. Tibia-fibula x-ray on 07/29/2020, no evidence of osteomyelitis of the left leg. [id number] on 07/29/2020, impression, soft tissue ulceration, no evidence of osteomyelitis of the right leg. Aorta with runoff CTA on 07/30/2020: impression, right middle lobe pulmonary nodule measuring 5 mm, nonspecific. Mild wall thickening of distal esophagus with associated hiatal hernia. Prominent atherosclerotic vascular calcifications involving coronary arteries, abdominal aorta, iliac arteries, lower extremity arteries. Focal areas of severe narrowing, proximal right superficial femoral artery. Narrowing involving above the knee right lower extremity popliteal artery. Right posterior tibial artery occluded. Moderate to sever narrowing in the left superficial femoral artery at the level of the adductor canal. Mild to moderate narrowing of the left popliteal artery. Left posterior tibial artery is occluded. Carotid doppler ultrasound on 07/30/2020, impression, moderate stenosis of the left ICA. Lower extremity ultrasound on 07/30/2020, impression, prominent atherosclerosis. proximal lower extremity, suggesting more proximal arterial stenosis. Vascular ultrasound on 07/30/2020, impression, no evidence of DVT in right lower extremity. On 07/31/2020, procedures performed, left groin ultrasound-guided femoral artery access. Abdominal aortogram x2. Right external iliac angiogram. Right common femoral artery angiogram. Right superficial femoral artery angiogram. Right popliteal artery angiogram. Right popliteal and superficial femoral complete length angioplasty with 5 x 150 Lutonix balloon taken up to 7 mmHg for 3 minutes, proximally and distally to cover the full length of the superficial femoral artery. On 08/01/2020, procedure, EGD with biopsy with Dr. David, GI. Impression; LA grade D reflux, mediated erosive esophagitis severe. 4 cm hiatal hernia. Three small 2 to 3 mm ulcerations in the gastric antrum, status post biopsies, consistent with NSAID gastritis or possible H pylori infection. On 08/05/2020, procedure, ultrasound guided right femoral artery access. Right external iliac angio with right leg runoff. Left external iliac angio, left superficial femoral artery angio, left popliteal artery angio with lower extremity runoff. Left superficial femoral artery percutaneous transluminal angioplasty with 4 x 40 Lutonix drug-eluting balloon taken to 12 mmHg for 3 minutes, by Dr. Papa Deleon, CV Surgery. PICC line placement on 08/08/2020 in left upper extremity. PICC line placement in left upper extremity on 08/14/2020. PRIMARY DIAGNOSIS: Nonhealing ulcers, secondary to peripheral arterial disease. SECONDARY DIAGNOSES: 1. Peripheral arterial disease, status post revascularization. 2. Acute encephalopathy. 3. Persistent tachycardia. 4. Urinary retention. 5. Constipation secondary to opioid use. 6. Syncope. 7. Dysphagia secondary to severe erosive esophagitis. 8. NSAID induced gastritis. 9. Hiatal herina. 10. Hypokalemia. 11. Hypertension. 12. Depression. 13. Anemia of chronic disease. DISCHARGE MEDICATIONS: 1. Amlodipine 10 mg daily. 2. Aspirin 81 mg daily. 3. Atorvastatin 20 mg daily. 4. Bupropion 150 mg b.i.d. 5. Candesartan 8 mg daily. 6. Cefepime 2 g IV q.12 hours. 7. Cilostazol 100 mg b.i.d. 8. Plavix 75 mg daily. 9. Cyclobenzaprine 10 mg t.i.d. 10. Benadryl 25 mg q.3 hours as needed. 11. Zetia 10 mg daily. 12. Fentanyl 12 mcg transdermal q.3 days. 13. Fluoxetine 20 mg daily. 14. Gabapentin 600 mg t.i.d. 15. Hydrochlorothiazide 12.5 mg daily. 16. [place] 10/325 one tablet p.o. q.4 hours as needed. 17. Melatonin 4.5 mg p.o. nightly. 18. Flagyl 500 mg t.i.d. 19. Nicotine patch 14 mg transdermal. 20. Zofran 4 mg q.6 hours as needed. 21. Protonix 40 mg p.o. b.i.d. 22. MiraLAX 17 mg p.o. daily. 23. Sucralfate 1 g p.o. before meals and at bedtime. 24. Vancomycin 1.25 g IV b.i.d. HISTORY OF PRESENT ILLNESS: The patient is a 64-year-old female with past medical history of type 2 diabetes, anemia, CKD, depression, hypertension, and neuropathy, who presented with a chief complaint of increasing bilateral lower extremity pain with nonhealing ulcers and syncope. Ulcers began in December of 2019 following a dog bite and had been treated outpatient with multiple rounds of antibiotics. She was then referred to Vascular Surgery and Wound Care outpatient, but has not been able to follow up. On presentation, the patient complained of increasing pain in bilateral lower extremities and swelling. The patient also complained of 3-week history of black out and falls. Also complained of dysphagia to solids and liquids over the past 2 to 3 months, explains that she feels as things get caught in her throat. X-ray of left foot showed cellulitis and possible osteomyelitis involving 5th digit. The patient was examined by General Surgery, Dr. Irizarry, who did not feel her physical exam matched the diagnosis of osteomyelitis, and Infectious Disease, Dr. Andrews also agreed. Dr. Andrews placed the patient on vancomycin and Rocephin, which was later changed to meropenem to cover any skin infection that maybe superimposed . In regard to syncope, a workup was completed including a negative CT of the brain and carotid dopplers that revealed moderate stenosis of the left ICA, and an echo that revealed mitral annular calcification, mild mitral regurg, mild aortic stenosis, and mild tricuspid regurg. The patient did not experience any syncopal events during hospitalization. In regard to dysphagia, GI was consulted and EDG revealed severe esophagitis and hiatal hernia and three small ulcerations in gastric antrum consistent with NSAID gastritis. Biopsy was done and H pylori was negative. The patient was started on Protonix 40 mg b.i.d. and recommended to follow up with GI as outpatient in 2 to 3 weeks and with General Surgery for possible Hermann fundoplication. In regard to nonhealing ulcers, an arterial doppler revealed prominent atherosclerosis and subsequent CTA revealed occluded right and left lower extremity arteries. Venous doppler showed no evidence of DVT. CV surgeon, Dr. Deleon was consulted and completed revascularization of the patient's right leg on July 31 and left leg on August 05. The patient was in extreme pain following her revascularization that was not controlled on [place] and morphine. Anesthesia was consulted and the patient was placed on fentanyl patch. A PICC line was placed on August 08. Dr. Deleon continued to monitor the patient's revascularization. During the stay, the patient developed constipation secondary to opioid use and was treated with multiple laxatives and is being discharged on daily MiraLax. The patient also had a urinary retention. A Triplett catheter was placed at the beginning of her stay and then a trial of PureWick was done, which the patient failed. So, Triplett was re-inserted and the patient is to follow up with Urology as outpatient. The patient developed acute encephalopathy during the stay, thought to be due to either infection or lengthy hospital stay causing delirium. Antibiotic coverage was widened, and the patient was now on vancomycin, cefepime, and Flagyl, which is the antibiotic regimen that the patient will be discharged on. For the delirium, the patient was reoriented frequently and lights on with blinds open during the day. This seemed to help improve her mentation. At one point in her delirium, she removed her PICC line that had been placed and a new PICC line had to be placed on 08/14, as the patient is to go out from the hospital on IV antibiotics. Due to the patient's persistent pain in lower extremities, need for pain control, need for physical therapy and occupational therapy, need for wound care, and need for IV antibiotics, it was deemed that placement was needed for the patient in the [place] [facility]. The patient's family agreed and plans were made to discharge to [facility]. The patient was stable for discharge with a plan of receiving IV antibiotics with vancomycin, cefepime, and Flagyl for 4 weeks total, so end date of 09/08/2020. Also, weekly labs to be drawn of CBC, CMP, CRP, and vancomycin trough. Wound Care consulted to change dressings. Continue with OT and PT. DISPOSITION: Stable. DISCHARGE INSTRUCTIONS: 1. Location: SNF, [facility]. 2. Diet: Heart healthy, consistent carb. 3. Activity: As tolerated. 4. Follow up with GI, Dr. David in 2 to 3 weeks; with Cardiovascular Surgery, Dr. Deleon in 1 week; with Urology, Dr. Warren in 1 to 2 weeks; and with primary care physician in 1 to 2 weeks. 5. The patient discharged with Triplett catheter and PICC line in place. Job ID: [id number]
== END 2020-08-19 17:48 | DRG 253 ==
LOC: ERS 12:48 → T4-A 18:12 → 2NO 23:06 → ONC 08-02 11:32 → T4-B 08-11 14:49
PROVIDERS: ADMIT Family Medicine; ATTEND Family Medicine
PROC: B41G1ZZ Fluoroscopy of Left Lower Extremity Arteries using Low Osmolar Contrast (ICD-10-PCS; 2020-07-31)
PROC: B41F1ZZ Fluoroscopy of Right Lower Extremity Arteries using Low Osmolar Contrast (ICD-10-PCS; 2020-07-31)
PROC: 0DB78ZX Excision of Stomach, Pylorus, Via Natural or Artificial Opening Endoscopic, Diagnostic (ICD-10-PCS; 2020-08-01)
PROC: 047L34Z Dilation of Left Femoral Artery with Drug-eluting Intraluminal Device, Percutaneous Approach (ICD-10-PCS; principal; 2020-08-05)
PROC: 047K3Z1 Dilation of Right Femoral Artery using Drug-Coated Balloon, Percutaneous Approach (ICD-10-PCS; 2020-08-05)
PROC: 02HV33Z Insertion of Infusion Device into Superior Vena Cava, Percutaneous Approach (ICD-10-PCS; 2020-08-08)
PROC: B548ZZA Ultrasonography of Superior Vena Cava, Guidance (ICD-10-PCS; 2020-08-08)
PROC: 0T9B70Z Drainage of Bladder with Drainage Device, Via Natural or Artificial Opening (ICD-10-PCS; 2020-08-10)
DX: E11.51 Type 2 diabetes mellitus with diabetic peripheral angiopathy without gangrene (principal); L97.419 Non-pressure chronic ulcer of right heel and midfoot with unspecified severity; I70.292 Other atherosclerosis of native arteries of extremities, left leg; I70.201 Unspecified atherosclerosis of native arteries of extremities, right leg; E11.69 Type 2 diabetes mellitus with other specified complication; L03.032 Cellulitis of left toe; E11.22 Type 2 diabetes mellitus with diabetic chronic kidney disease; N18.9 Chronic kidney disease, unspecified; I12.9 Hypertensive chronic kidney disease with stage 1 through stage 4 chronic kidney disease, or unspecified chronic kidney disease; F32.9 Major depressive disorder, single episode, unspecified; D63.1 Anemia in chronic kidney disease; E11.40 Type 2 diabetes mellitus with diabetic neuropathy, unspecified; Z20.828 Contact with and (suspected) exposure to other viral communicable diseases; I65.22 Occlusion and stenosis of left carotid artery; R13.10 Dysphagia, unspecified; K21.00 Gastro-esophageal reflux disease with esophagitis, without bleeding; K44.9 Diaphragmatic hernia without obstruction or gangrene; E87.6 Hypokalemia; K29.70 Gastritis, unspecified, without bleeding; T39.395A Adverse effect of other nonsteroidal anti-inflammatory drugs [NSAID], initial encounter; K59.03 Drug induced constipation; T40.2X5A Adverse effect of other opioids, initial encounter; R33.9 Retention of urine, unspecified; R41.0 Disorientation, unspecified; Z87.891 Personal history of nicotine dependence; Z79.82 Long term (current) use of aspirin; Z79.899 Other long term (current) drug therapy; Z88.6 Allergy status to analgesic agent; Z88.0 Allergy status to penicillin; Z79.01 Long term (current) use of anticoagulants
CPT/HCPCS: 36415; 36569; 37224; 70450; 71045; 75635; 75716; 76942; 80048; 80053; 80202; 81001; 82728; 83036; 83540; 83550; 83605; 84145; 84443; 84484; 85025; 85347; 85652; 87040; 87086; 87149; 87635; 88305; 88312; 93005; 93306; 93880; 93923; 96365; 96366; 96375; 99152; 99153; C1725; C1751; C1760; C2623; C9113; J0692; J0696; J0744; J1644; J1650; J2001; J2185; J2250; J2270; J2405; J2704; J2720; J3010; J3370; J3480; J3490; J7050; Q0162; Q0163; Q9967; U0003